=== PATIENT | male | born 1950 ===

== ENCOUNTER 2025-01-28 20:22 | Inpatient (IN) | payer MEDICARE, SELFPAY ==
[2025-01-28] VITALS (11 sets, daily range): BP systolic 102–142; BP diastolic 53–97; BMI 27.1; BMI 26.6
[2025-01-28 14:21] LABS: Hematocrit 48.7 % (39.0-52.0); Hemoglobin 16.0 g/dL (13.0-18.0); Mean Corp Hgb Conc. 32.9 g/dL (33.0-37.0); Mean Corpuscular Volume 89.9 fL (80.0-94.0); Nucleated Red Blood Cells % 0 % (-); Platelet Count 124 10^3/uL (130-400); Red Cell Dist. Width 14.1 % (11.5-14.5)
[2025-01-28 14:45] LABS: ALT (SGPT) 27 U/L (0-50); AST (SGOT) 24 U/L (17-59); Albumin 4.7 g/dl (3.5-5.0); Alkaline Phosphatase 47 U/L (38-126); Blood Urea Nitrogen 25 mg/dl (9-20); Calcium 9.8 mg/dl (8.4-10.2); Carbon Dioxide 23 mmol/L (22-30); Chloride 112 mmol/L (98-107); Glucose 96 mg/dl (70-99); Potassium 4.4 mmol/L (3.5-5.1); Sodium 141 mmol/L (135-145); Total Protein 7.5 g/dl (6.3-8.2); eGFR > 60.00
[2025-01-28 15:06] LABS: Troponin I 0.037 ng/ml
--- NOTE | 2025-01-28 16:37 | ED.GENMED ---
History of Present Illness
<Sandra Wong MD, Resident - Last Filed: 01/28/25 22:30>
General
Chief Complaint: Chest Pain
Source: patient
Exam Limitations: none
Time Seen by Provider: 01/28/25 15:39
Nursing documentation reviewed up to this point in time: agreed with
History of Present Illness
History of Present Illness:
Mr. Guille Luo is a 74-year-old male with a PMH notable for hyperlipidemia who is presenting after exertional chest pain/pressure at noon today.
This morning he developed chest pressure while walking up a hill carrying light chairs. He sat down and began sweating a lot. After 5 to 10 minutes of sitting down the chest pressure went away. He endorsed nauseous.
The discomfort was in the center of the chest and did not radiate. He first went to the urgent care and got an ECG, and they told him to go to an ED for cardiac enzymes.
He denies feeling similar symptoms before, including when he mows the lawn with a heavy lawnmower. He has also felt gassiness in his chest last night and a month ago which were not associated with exertion.
He endorses occasional calf cramps that wake him up from sleeping, especially after drinking alcohol. He denies calf pain while walking or exertion.
Past History
<Sandra Wong MD, Resident - Last Filed: 01/28/25 22:30>
Past History
ED Past Medical History: Hypercholesterolemia
Patient has exhibited threatening behavior?: No
Social History
Tobacco: Former smoker
Alcohol: Occasional
Personal:
Family History
Family History: CAD (NC in father in 40s or 50s)
Review of Systems
<Sandra Wong MD, Resident - Last Filed: 01/28/25 22:30>
Review of Systems
All Other Systems: ROS reviewed and negative except as documented in HPI and ROS
Constitutional: Reports no symptoms
Respiratory: Reports no symptoms
Cardiac: Reports chest pain, diaphoresis and other (Denies lightheadedness)
ABD/GI: Reports no symptoms
Neurological: Reports other (Denies numbness and paresthesia)
Phy Exam
<Sandra Wong MD, Resident - Last Filed: 01/28/25 22:30>
Physical Exam
Physical Exam:
Heart: Holosystolic murmur at aortic area and mitral area, regular rate and rhythm
Extremities: Pedal pulses difficult to palpate
No tenderness to palpation in the popliteal area or calves
No pedal edema
Lungs clear to auscultation bilaterally
GI: No tenderness to palpation, normal bowel sounds
Scores
<Sandra Wong MD, Resident - Last Filed: 01/28/25 22:30>
Heart Score for Chest Pain Patients
STEMI patient?: No
History: Slightly or Non-Suspicious
ECG: Nonspecific Repolarization
Age: >/= 65 years
Risk Factors: 1 or 2 Risk Factors
Troponin: >1 - <3 x Normal Limit
Heart Score for Chest Pain Patients: 5
Heart Score Risk: 20.3% MACE over next 6 weeks
Course
<Sandra Wong MD, Resident - Last Filed: 01/28/25 22:30>
Orders/Labs/Results
Orders:
Orders
01/28/25 Lunch
Cholesterol Lowering
Cholesterol Lowering: Sodium, 2 Gram
01/28/25 13:50
EKG [Electrocardiogram (*1)] Urgent
Reason for Study: Chest Pain
01/28/25 13:51
EKG- Treatment ONCE
01/28/25 13:59
Cardiac Monitoring- Treatment ONCE
O2 Therapy [RESP] Urgent
Titrate/Wean O2 to maintain O2 sat greater than (%): 90
Special Instructions: Maintain sats >/=90%
Pulse Ox/spot Check [RESP] Urgent
Quantity: 1
Special Instructions: ON ROOM AIR
01/28/25 14:15
BNP [NT-proBNP] Urgent
Complete Blood Count/With Diff Urgent
Comprehensive Metabolic Panel Urgent
Direct Bilirubin Urgent
Glycohemoglobin (HgbA1c) Urgent
LDH Urgent
Reticulocyte Count Urgent
Comment: ADD ON
Troponin I Urgent
01/28/25 17:05
CR Chest - 2 Views Urgent
Comment:
Reason For Exam: exertional chest pain; murmur
01/28/25 17:06
Troponin I Urgent
01/28/25 18:03
Aspirin Chewable [Low Strength Aspirin] 324 mg PO NOW STA
01/28/25 19:48
Heparin 4,000 units IV NOW STA
Nursing to Place Non Medication Order As Directed
Physician Order: PTT 6 hours after initial start of Heparin infusion
01/28/25 20:00
Heparin 70371 Units/250 ml 25,000 units in 250 ml IV PER PROTOCOL
Weight to be used for heparin protocol in kilograms (kg):: 95.708
Protocol:: Cardiac Tx/Acute Coronary
PTT Goal Range to be used:: PTT 73 to 111 seconds
Order type:: Initial
INITIAL Infusion Dose (UNITS/KG/hr) & then follow protocol:: 15 units/kg/hr
Infusion Dose in UNITS/hr & then follow protocol (UNITS/hr):: 1,450
INFUSION RATE in mL/hr & then follow protocol (mL/hr):: 14.5
PTT less than or equal to 64 seconds:: Increase rate by 200 units/hr (+ 2 mL/hr)
PTT 64.1 to 72.9 seconds:: Increase rate by 100 units/hr (+ 1 mL/hr)
PTT 73 to 111 seconds:: Target Range. No change in rate.
PTT 111.1 to 130.9 seconds:: Decrease rate by 100 units/hr (- 1 mL/hr)
PTT 131 to 199.9 seconds:: HOLD for 1 hr. Then decrease rate by 200 units/hr (- 2 mL/hr)
PTT greater than or equal to 200 seconds:: HOLD for 2 hrs & Notify Provider. Then decrease by 200 units/hr (-
2 mL/hr)
Lab follow-up:: Each change, PTT q6h until 2 consecutive are therapeutic. Then PTT
daily.
01/28/25 20:02
Admit/Transfer Patient As Directed
Co-Sign Provider:
Level of Care: Inpatient admission
Assign to:: IVU
Physician / Group: Hospitalist
Diagnosis: NSTEMI
Reason for Hospitalization: NSTEMI
Expected length of stay greater than two midnights?: Yes
ELOS- Estimated Length of Stay in days: 2
I certify the patient meets the requirements for IP care: Yes
PRN Pain Medication Management As Directed
May give lesser potent ordered pain med per pt: Yes
preference::
Protocol:: Medication orders for pain may be administered in a
manner that supports deferring to patient preference
when the pt is:
- Requesting an ordered lesser potent pain medication.
Least to most potent pain medications are defined
as: acetaminophen < NSAID < tramadol < opioids
(morphine, oxycodone, hydromorphone).
- Requesting a lesser dose of the same medication IF
ORDERED.
- Requesting a less intrusive route of administration
if both routes are prescribed by the provider (PO <
IV).
01/28/25 20:03
Code Status As Directed
Resuscitation Status: Full Code
01/28/25 20:10
Add On- LAB Routine
Tests Added?: LDH, direct bili, retics
Blood Parasites Routine
NERY Source: Blood/Venous
Specimen Description:
01/28/25 20:16
PTT Urgent
Comment: Obtain baseline before beginning heparin infusion if not already collected
Troponin I Stat
01/28/25 21:48
Electrocardiogram (*1) Q6H
Reason for Study: Chest Pain
Comment: at admission and Q3H for total of 3, to be done with each troponin
Troponin I Q3H
Comment: at admit & Q3H for 3 total including ED draws, obtain ECG with each level
01/28/25 21:48
Echo 2D MMode Color/Doppler Routine
Reason for Study: chest pain
CARDIOLOGY CONSULT Routine
Consulting Provider: Werner Gillespie
Was physician already notified: Yes
Reason for consult: NSTEMI
Heparin Protocol- PTT Orders As Directed
PTT per Heparin protocol: -Obtain CBC and baseline PTT - if not already collected.
-Obtain PTT 6 hours from start of infusion. Then, every 6 hours until 2 consecutive
PTT's are therapeutic. Then, PTT Daily.
-With each rate change, obtain PTT every 6 hours until 2 consecutive PTT's are
therapeutic. Then, PTT Daily.
Activity As Directed
Activity Level: Out of Bed-Early Mobility
INT (Intravenous Needle Therapy) As Directed
Comment: maintain peripheral IV access
Intake/ Output As Directed
Frequency: Per unit guidelines
Notify MD As Directed
Notify physician if: PTT is greater than or equal to 200.
Vital Signs As Directed
Frequency: q4h
Weight As Directed
Frequency: Daily
01/29/25 00:48
Troponin I Q3H
Comment: at admit & Q3H for 3 total including ED draws, obtain ECG with each level
01/29/25 03:48
Electrocardiogram (*1) Q6H
Reason for Study: Chest Pain
Comment: at admission and Q3H for total of 3, to be done with each troponin
Troponin I Q3H
Comment: at admit & Q3H for 3 total including ED draws, obtain ECG with each level
01/29/25 06:00
Cardiovascular Evaluation IN AM
Complete Blood Count/With Diff IN AM
Comprehensive Metabolic Panel IN AM
TSH Reflex To Free T4 IN AM
01/29/25 08:00
Aspirin Chewable [Low Strength Aspirin] 81 mg PO DAILY
Clopidogrel Bisulfate [Plavix] 75 mg PO DAILY
Rosuvastatin Calcium [Crestor] 5 mg PO DAILY
01/29/25 09:48
Electrocardiogram (*1) Q6H
Reason for Study: Chest Pain
Comment: at admission and Q3H for total of 3, to be done with each troponin
01/30/25 06:00
Complete Blood Count/No Diff Q2D
Comment: notify provider: Platelet count < 130,000 or decrease by 50% from baseline
02/01/25 06:00
Complete Blood Count/No Diff Q2D
Comment: notify provider: Platelet count < 130,000 or decrease by 50% from baseline
02/03/25 06:00
Complete Blood Count/No Diff Q2D
Comment: notify provider: Platelet count < 130,000 or decrease by 50% from baseline
02/05/25 06:00
Complete Blood Count/No Diff Q2D
Comment: notify provider: Platelet count < 130,000 or decrease by 50% from baseline
02/07/25 06:00
Complete Blood Count/No Diff Q2D
Comment: notify provider: Platelet count < 130,000 or decrease by 50% from baseline
02/09/25 06:00
Complete Blood Count/No Diff Q2D
Comment: notify provider: Platelet count < 130,000 or decrease by 50% from baseline
02/11/25 06:00
Complete Blood Count/No Diff Q2D
Comment: notify provider: Platelet count < 130,000 or decrease by 50% from baseline
02/13/25 06:00
Complete Blood Count/No Diff Q2D
Comment: notify provider: Platelet count < 130,000 or decrease by 50% from baseline
Abnormal Lab Results
01/28/25 01/28/25 01/28/25
14:15 17:06 20:16
MCHC 32.9 L g/dL
(33.0-37.0)
Plt Count 124 L 10^3/uL
(130-400)
MPV 12.1 H fL
(7.4-10.4)
Absolute Monos (auto) 0.9 H 10^3/uL
(0.1-0.6)
Lymphocytes % 20.4 L %
(20.5-51.1)
Monocytes % 10.7 H %
(1.7-9.3)
Chloride 112 H mmol/L
(98-107)
BUN 25 H mg/dl
(9-20)
Total Bilirubin 1.5 H mg/dl
(0.2-1.3)
Troponin I 0.037 H* ng/ml 0.065 H* D ng/ml 0.069 H* ng/ml
01/28/25 14:15
01/28/25 14:15
Vital Signs
Initial and Last Documented VS:
Initial Vital Signs
Temp Pulse Resp BP Pulse Ox
98.3 F 77 18 130/87 98
01/28/25 14:00 01/28/25 14:00 01/28/25 14:00 01/28/25 14:00 01/28/25 14:00
Last Documented Vital Signs
Temp Pulse Resp BP Pulse Ox
98.5 F 64 16 129/97 96
01/28/25 21:50 01/28/25 21:50 01/28/25 21:50 01/28/25 21:50 01/28/25 21:50
<Veto HSharifa Oconnell DO - Last Filed: 01/28/25 19:59>
Orders/Labs/Results
Orders:
Orders
01/28/25 Lunch
Cholesterol Lowering
Cholesterol Lowering: Sodium, 2 Gram
01/28/25 13:50
EKG [Electrocardiogram (*1)] Urgent
Reason for Study: Chest Pain
01/28/25 13:51
EKG- Treatment ONCE
01/28/25 13:59
Cardiac Monitoring- Treatment ONCE
O2 Therapy [RESP] Urgent
Titrate/Wean O2 to maintain O2 sat greater than (%): 90
Special Instructions: Maintain sats >/=90%
Pulse Ox/spot Check [RESP] Urgent
Quantity: 1
Special Instructions: ON ROOM AIR
01/28/25 14:15
BNP [NT-proBNP] Urgent
Complete Blood Count/With Diff Urgent
Comprehensive Metabolic Panel Urgent
Direct Bilirubin Urgent
Glycohemoglobin (HgbA1c) Urgent
LDH Urgent
Reticulocyte Count Urgent
Comment: ADD ON
Troponin I Urgent
01/28/25 17:05
CR Chest - 2 Views Urgent
Comment:
Reason For Exam: exertional chest pain; murmur
01/28/25 17:06
Troponin I Urgent
01/28/25 18:03
Aspirin Chewable [Low Strength Aspirin] 324 mg PO NOW STA
01/28/25 19:48
Heparin 4,000 units IV NOW STA
Nursing to Place Non Medication Order As Directed
Physician Order: PTT 6 hours after initial start of Heparin infusion
01/28/25 20:00
Heparin [id number] Units/250 ml 25,000 units in 250 ml IV PER PROTOCOL
Weight to be used for heparin protocol in kilograms (kg):: 95.708
Protocol:: Cardiac Tx/Acute Coronary
PTT Goal Range to be used:: PTT 73 to 111 seconds
Order type:: Initial
INITIAL Infusion Dose (UNITS/KG/hr) & then follow protocol:: 15 units/kg/hr
Infusion Dose in UNITS/hr & then follow protocol (UNITS/hr):: 1,450
INFUSION RATE in mL/hr & then follow protocol (mL/hr):: 14.5
PTT less than or equal to 64 seconds:: Increase rate by 200 units/hr (+ 2 mL/hr)
PTT 64.1 to 72.9 seconds:: Increase rate by 100 units/hr (+ 1 mL/hr)
PTT 73 to 111 seconds:: Target Range. No change in rate.
PTT 111.1 to 130.9 seconds:: Decrease rate by 100 units/hr (- 1 mL/hr)
PTT 131 to 199.9 seconds:: HOLD for 1 hr. Then decrease rate by 200 units/hr (- 2 mL/hr)
PTT greater than or equal to 200 seconds:: HOLD for 2 hrs & Notify Provider. Then decrease by 200 units/hr (-
2 mL/hr)
Lab follow-up:: Each change, PTT q6h until 2 consecutive are therapeutic. Then PTT
daily.
01/28/25 20:02
Admit/Transfer Patient As Directed
Co-Sign Provider:
Level of Care: Inpatient admission
Assign to:: IVU
Physician / Group: Hospitalist
Diagnosis: NSTEMI
Reason for Hospitalization: NSTEMI
Expected length of stay greater than two midnights?: Yes
ELOS- Estimated Length of Stay in days: 2
I certify the patient meets the requirements for IP care: Yes
PRN Pain Medication Management As Directed
May give lesser potent ordered pain med per pt: Yes
preference::
Protocol:: Medication orders for pain may be administered in a
manner that supports deferring to patient preference
when the pt is:
- Requesting an ordered lesser potent pain medication.
Least to most potent pain medications are defined
as: acetaminophen < NSAID < tramadol < opioids
(morphine, oxycodone, hydromorphone).
- Requesting a lesser dose of the same medication IF
ORDERED.
- Requesting a less intrusive route of administration
if both routes are prescribed by the provider (PO <
IV).
01/28/25 20:03
Code Status As Directed
Resuscitation Status: Full Code
01/28/25 20:10
Add On- LAB Routine
Tests Added?: LDH, direct bili, retics
Blood Parasites Routine
NERY Source: Blood/Venous
Specimen Description:
01/28/25 20:16
PTT Urgent
Comment: Obtain baseline before beginning heparin infusion if not already collected
Troponin I Stat
01/28/25 21:48
Electrocardiogram (*1) Q6H
Reason for Study: Chest Pain
Comment: at admission and Q3H for total of 3, to be done with each troponin
Troponin I Q3H
Comment: at admit & Q3H for 3 total including ED draws, obtain ECG with each level
01/28/25 21:48
Echo 2D MMode Color/Doppler Routine
Reason for Study: chest pain
CARDIOLOGY CONSULT Routine
Consulting Provider: Werner Gillespie
Was physician already notified: Yes
Reason for consult: NSTEMI
Heparin Protocol- PTT Orders As Directed
PTT per Heparin protocol: -Obtain CBC and baseline PTT - if not already collected.
-Obtain PTT 6 hours from start of infusion. Then, every 6 hours until 2 consecutive
PTT's are therapeutic. Then, PTT Daily.
-With each rate change, obtain PTT every 6 hours until 2 consecutive PTT's are
therapeutic. Then, PTT Daily.
Activity As Directed
Activity Level: Out of Bed-Early Mobility
INT (Intravenous Needle Therapy) As Directed
Comment: maintain peripheral IV access
Intake/ Output As Directed
Frequency: Per unit guidelines
Notify MD As Directed
Notify physician if: PTT is greater than or equal to 200.
Vital Signs As Directed
Frequency: q4h
Weight As Directed
Frequency: Daily
01/29/25 00:48
Troponin I Q3H
Comment: at admit & Q3H for 3 total including ED draws, obtain ECG with each level
01/29/25 03:48
Electrocardiogram (*1) Q6H
Reason for Study: Chest Pain
Comment: at admission and Q3H for total of 3, to be done with each troponin
Troponin I Q3H
Comment: at admit & Q3H for 3 total including ED draws, obtain ECG with each level
01/29/25 06:00
Cardiovascular Evaluation IN AM
Complete Blood Count/With Diff IN AM
Comprehensive Metabolic Panel IN AM
TSH Reflex To Free T4 IN AM
01/29/25 08:00
Aspirin Chewable [Low Strength Aspirin] 81 mg PO DAILY
Clopidogrel Bisulfate [Plavix] 75 mg PO DAILY
Rosuvastatin Calcium [Crestor] 5 mg PO DAILY
01/29/25 09:48
Electrocardiogram (*1) Q6H
Reason for Study: Chest Pain
Comment: at admission and Q3H for total of 3, to be done with each troponin
01/30/25 06:00
Complete Blood Count/No Diff Q2D
Comment: notify provider: Platelet count < 130,000 or decrease by 50% from baseline
02/01/25 06:00
Complete Blood Count/No Diff Q2D
Comment: notify provider: Platelet count < 130,000 or decrease by 50% from baseline
02/03/25 06:00
Complete Blood Count/No Diff Q2D
Comment: notify provider: Platelet count < 130,000 or decrease by 50% from baseline
02/05/25 06:00
Complete Blood Count/No Diff Q2D
Comment: notify provider: Platelet count < 130,000 or decrease by 50% from baseline
02/07/25 06:00
Complete Blood Count/No Diff Q2D
Comment: notify provider: Platelet count < 130,000 or decrease by 50% from baseline
02/09/25 06:00
Complete Blood Count/No Diff Q2D
Comment: notify provider: Platelet count < 130,000 or decrease by 50% from baseline
02/11/25 06:00
Complete Blood Count/No Diff Q2D
Comment: notify provider: Platelet count < 130,000 or decrease by 50% from baseline
02/13/25 06:00
Complete Blood Count/No Diff Q2D
Comment: notify provider: Platelet count < 130,000 or decrease by 50% from baseline
Abnormal Lab Results
01/28/25 01/28/25 01/28/25
14:15 17:06 20:16
MCHC 32.9 L g/dL
(33.0-37.0)
Plt Count 124 L 10^3/uL
(130-400)
MPV 12.1 H fL
(7.4-10.4)
Absolute Monos (auto) 0.9 H 10^3/uL
(0.1-0.6)
Lymphocytes % 20.4 L %
(20.5-51.1)
Monocytes % 10.7 H %
(1.7-9.3)
Chloride 112 H mmol/L
(98-107)
BUN 25 H mg/dl
(9-20)
Total Bilirubin 1.5 H mg/dl
(0.2-1.3)
Troponin I 0.037 H* ng/ml 0.065 H* D ng/ml 0.069 H* ng/ml
01/28/25 14:15
01/28/25 14:15
Vital Signs
Initial and Last Documented VS:
Initial Vital Signs
Temp Pulse Resp BP Pulse Ox
98.3 F 77 18 130/87 98
01/28/25 14:00 01/28/25 14:00 01/28/25 14:00 01/28/25 14:00 01/28/25 14:00
Last Documented Vital Signs
Temp Pulse Resp BP Pulse Ox
98.5 F 64 16 129/97 96
01/28/25 21:50 01/28/25 21:50 01/28/25 21:50 01/28/25 21:50 01/28/25 21:50
<Sandra Wong MD, Resident - Last Filed: 01/28/25 22:30>
MDM/Problems Addressed
Differential Diagnosis Includes:
Cardiac valve abnormality
Stable angina
GERD
Less likely but also considering
PE
MDM/Problems Addressed:
Chest pain started at around noon. Troponin I mildly elevated at 0.037 at 2:15 PM and increased to 0.065.
BNP 840 (nearly elevated for his age category) supports valvular disease as a cause of his chest pain.
Aspirin 325 mg
CXR pending
Cardiology consulted for when to start heparin
Chronic conditions affecting care: Other (HLD)
<Sandra Wong MD, Resident - Last Filed: 01/28/25 22:30>
*Pulse Oximetry
SaO2: 99
Oxygen Mode of Delivery: Room air
Patient hypoxic: no
*Critical Care Note
Total Time (30-74mins, 75-104mins- exclusive of procedures): Not Applicable
ED Attending Note
<Sandra Wong MD, Resident - Last Filed: 01/28/25 22:30>
-
Portions of this chart may have been created with voice recognition software.� Occasional wrong word or��sound alike� substitutions may have occurred due to the inherent limitations of voice recognition software.
<Veto Oconnell, - Last Filed: 01/28/25 19:59>
ED Attending Note
Patient seen and examined by attending physician: Yes
I performed a history and physical exam of patient and discussed management with resident, I reviewed resident's note and agree with documented findings and plan of care.: Yes
ED Attending Note:
I agree with the residents note
Patient presents after having an episode of chest pain while walking through a field and up a slight incline. Patient described it as a bubble or heaviness in his chest. It was associated with profuse diaphoresis. No shortness of breath or
nausea. No chest pain now. Pain went away after he rested after about 10 minutes. Patient is similar episode of discomfort last evening though to a much lesser degree.
General: Awake, Alert, Oriented X3. No acute distress.
Vitals: unremarkable
Head: Atraumatic
Eyes: Pupils equal, EOMI
Throat: Airway intact, no exudates
Neck: Trachea midline
Lungs: Clear and equal b/l
Heart: Regular rate, 3/6 systolic murmurs
Abd: Soft, Nontender, No pulsatile mass
Neuro: Nonfocal
Skin: Warm, dry, no rash
Extremities: pulses equal b/l, no edema
EKG: No acute ischemic changes.
Patient's first troponin is very slightly elevated.
Patient's chest discomfort sounds very concerning for angina though his murmur is quite prominent and perhaps his troponin elevation is related to strain from what seems to be aortic stenosis. Will obtain a second troponin. Obtain a chest x-ray.
Then discussed with cardiology on-call.
Discharge Plan
Departure
Patient Disposition: Admit
Date of Disposition: 01/28/25
Time of Disposition: 19:58
Presentation/result/management discussed w/ accepting MD/DO: Hospitalist
Condition: Fair
Discharge Problem:
Chest pain, Non-ST elevation (NSTEMI) myocardial infarction
Interventions
Interventions:
*Risk Screen - Suicide Last Done: 01/28/25 14:00
*General Assessment Last Done: 01/28/25 15:31
*Neglect/Abuse Screening Last Done: 01/28/25 14:00
*ED- Fall Risk Assessment Last Done: 01/28/25 15:31
*ED COVID-19 Vaccine History Last Done: 01/28/25 15:31
*Nursing Disposition Last Done: 01/28/25 21:13
ED- Cardiac Assessment Last Done: 01/28/25 15:31
[2025-01-28 17:39] LABS: Troponin I 0.065 ng/ml
[2025-01-28] MEDS: LOW STRENGTH ASPIRIN 324 MG PO (18:15)
--- NOTE | 2025-01-28 20:07 | HPS.HSE ---
Family Physician
-
Family Physician: Racheal Gomez
Chief Complaint
-
chest pain
History of Present Illness
74yo M with HLD came with episode of substernal chest pressure started while he was walking uphill associated with diaphoresis and resolved at rest. Had similar before but to less extent. No other symptoms noted. Ho Hx of cardiac problems. daily
alcohol use without abuse. Also early systolic murmur on R 2nd intercostal space - not known to the patient.
Medical History
Past Medical History
Past Medical History: Reports Other
Additional Past Medical History:
See HPI
Past Surgical History: Reports None
Social History
Tobacco: Non-smoker
Alcohol: Daily
Drug: None
Family History
Family History: Not pertinent
Allergies / Home Medications
Allergies reflects when Allergies were last updated in [facility].
Home Medications with original date entered in [facility]
Allergy/Medication List:
Allergies
Allergy/AdvReac Type Severity Reaction Status Date / Time
No Known Allergies Allergy Verified 01/28/25 18:03
Home Medications
rosuvastatin 5 mg tablet 5 mg PO DAILY 01/28/25
sildenafil 100 mg tablet 100 mg PO DAILY PRN ED 01/28/25
Review of Systems
-
History Source: Patient
A 12 point ROS was completed and negative except as noted: Yes
Physical Exam
Vital Signs
Vital Signs
Temp Pulse Resp BP Pulse Ox
98.6 F 62 20 102/53 96
01/28/25 15:31 01/28/25 19:15 01/28/25 18:04 01/28/25 19:00 01/28/25 19:15
Physical Exam
General: No Apparent Distress, Comfortable and Conversant
HEENT: NormoCephalic, Anicteric and Moist mucous membranes
Respiratory: Clear; No Wheezes, Rales or Crackles
Cardiac: Regular Rhythm
GI: Soft, Non Tender and Non Distended
Genito-urinary: Clear Urine
Musculoskeletal: No Clubbing, No Cyanosis and No Edema
Skin: Warm; No Rash or Jaundice
Neuro: Awake, Alert, Oriented and AO x 3
Psych: Calm
Laboratory Results
-
01/28/25 14:15
01/28/25 14:15
Laboratory Results
Total Bilirubin 1.5 mg/dl (0.2-1.3) H 01/28/25 14:15
AST 24 U/L (17-59) 01/28/25 14:15
ALT 27 U/L (0-50) 01/28/25 14:15
Alkaline Phosphatase 47 U/L (38-126) 01/28/25 14:15
Troponin I 0.065 ng/ml H* D 01/28/25 17:06
Data Reviewed
-
Diagnostic Radiology: Report Reviewed by me
Lab Data: Labs Reviewed by me
Impression/Plan
-
A/P:
#Chest pain
#Cardiac murmur
concern for cardiac, possible NSTEMI
serial EKG, trops,
nitro SL not ordered - patient taking Viagra, and currently pain free. morphine PRN
cardio consult
ASA, plavix statin
check HgbA1c, Lipids, TSH
Heparin drip
Echo
#Thrombocytopenia
follow CBC
#Bilirubinemia
no RUQ abd tenderness
check direct bili, LDH, retics
Blood parasite
#HLD
cont rosuvastatin, check LDL
DVt ppx heparin drip
Full code
I have spent at leats 76min admitting the patient
[2025-01-28 20:17] LABS: Reticulocyte Count 1.0 % (0.4-2.8)
[2025-01-28 20:36] LABS: APTT 28.4 Sec (23.4-35.0)
[2025-01-28 20:42] LABS: LDH 218 U/L (120-246)
[2025-01-28 20:50] LABS: Troponin I 0.069 ng/ml
[2025-01-28] MEDS: HEPARIN 4000 UNITS IV (20:59)
[2025-01-28] MEDS: HEPARIN 25000 UNITS/250 ML IV (21:01)
--- NOTE | 2025-01-28 23:50 | PTCARENOTE ---
Received pt from ED via stretcher into room 9701. Patient ambulated self in room w/out difficulty. Denies any dizziness, SOB or pain. Tele monitor applied pt in SR w/ PACs/PVCs, BBBC and 1st AV block. HR in the 60s at rest. BP stable. Skin intact.
No complaints of chest discomfort at this time. IV Heparin gtt infusing at 1450 units/hr. Patient oriented to room, aware of POC. Call reagan within reach.
[2025-01-28 23:52] LABS: Troponin I 0.049 ng/ml
[2025-01-29] VITALS (14 sets, daily range): BP systolic 85–127; BP diastolic 61–93; BMI 26.7
[2025-01-29 03:43] LABS: Hematocrit 45.2 % (39.0-52.0); Hemoglobin 14.8 g/dL (13.0-18.0); Mean Corp Hgb Conc. 32.7 g/dL (33.0-37.0); Mean Corpuscular Volume 90.2 fL (80.0-94.0); Nucleated Red Blood Cells % 0 % (-); Platelet Count 114 10^3/uL (130-400); Red Cell Dist. Width 14.1 % (11.5-14.5)
[2025-01-29 03:58] LABS: APTT 185.4 Sec (23.4-35.0)
[2025-01-29 04:44] LABS: ALT (SGPT) 25 U/L (0-50); AST (SGOT) 24 U/L (17-59); Albumin 3.9 g/dl (3.5-5.0); Alkaline Phosphatase 46 U/L (38-126); Blood Urea Nitrogen 25 mg/dl (9-20); Calcium 9.3 mg/dl (8.4-10.2); Carbon Dioxide 23 mmol/L (22-30); Chloride 113 mmol/L (98-107); Estimated Creatinine Clearance 97 ml/min; Glucose 85 mg/dl (70-99); HDL Cholesterol 54 mg/dl; LDL Cholesterol, Calculated 90 mg/dl; Potassium 4.3 mmol/L (3.5-5.1); Sodium 142 mmol/L (135-145); Total Protein 6.4 g/dl (6.3-8.2); Very Low Density Lipoprotein 14 mg/dl (0-30); eGFR > 60.00
--- NOTE | 2025-01-29 07:54 | CON.CAR ---
Addendum entered and electronically signed by Evert Blancas MD 01/29/25 13:34:
74-year-old man with little past medical history admitted yesterday with chest discomfort, detectable troponin and increasing intermittent dyspnea on exertion over the last few months
PMH: Hyperlipidemia
FH: Premature CAD
PSH/SH: See below
Meds, allergies: See below
ROS: See below
119/90, pulse 58, respirate 16, no distress, head neck exam unremarkable, lungs are clear, systolic murmur across precordium, carotid bruits, abdomen benign, extremities without clubbing cyanosis or edema
Echo: Dilated LV, severe MR, MVP, pulmonary artery systolic pressure 43, dilated atria, EF 51%, probably reduced in the setting of severe MR
ECG: Sinus rhythm, incomplete right bundle, inferior T wave changes nonspecific
Normal CBC, BUN/creatinine are 25 and 0.8, proBNP is 840, peak troponin 0.069
Impression:
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
Mildly reduced LV function
Exertional chest pain with troponin of 0.069
Hyperlipidemia
Family history of premature CAD
Sinus of Valsalva 4.3 cm
Plan:
See below as per Rosalba Jose. Reviewed in detail and agree, unless otherwise specified.
He is admitted with detectable troponin with exertional chest discomfort and scheduled for the Cash Controller to exclude an ACS and assess coronary anatomy.
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
Will proceed with cardiac catheterization as the next step.
Original Note:
Consultation
Consultation Request
Date/Time Consultation Requested: 01/28/25 at 1134
Date/Time Consultation Performed: 01/29/25 at 6190
Requesting Provider: Dr. Smart
Performing Provider: Dr. Blancas
Reason for Consultation: ACS
Medical History
-
History of Present Illness:
Patient came to [facility] ER yesterday with chest pain and was admitted with possible ACS and cardiology has been consulted. Patient reports intermittent SALCEDO over the last several months, but sometimes he can complete physical activity without any
symptoms and other times will have some SALCEDO chest pressure. He mows his lawn using a push mower weekly without any symptoms. 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
event and while walking he had pressure throughout his precordium and then when he reached his destination he was overwhelmingly fatigued and flopped down in his chair. A bystander thought he looked unwell and offered him Gatorade. Patient says
that the pain improved within 10 minutes of sitting down, but did not completely resolve and was still present close to an hour later when he and his were leaving the event. Patient went to urgent care and then was referred to the ER where his
initial troponin was 0.037 and then peaked at 0.065. Patient denies any previous cardiac testing. He was started on Crestor for hyperlipidemia about 6 months ago. His father had an [place] and at age 54.
PMH:
Hyperlipidemia
FH premature CAD
Past Medical History
Past Medical History: Other (in HPI)
Past Surgical History: Tonsilectomy
Social History
Tobacco: Other (smokes an occasional cigar)
Alcohol: Daily (glass of wine, cocktail or beer a day)
Drug: None
Personal:
Living: With Family
Family History
Family History: Early CAD (father of [place] at age 54)
Allergies / Home Medications
Allergy/AdvReac Type Severity Reaction Status Date / Time
No Known Allergies Allergy Verified 01/28/25 18:03
�Medication �Instructions �Recorded �Confirmed �Type
rosuvastatin 5 mg tablet 5 mg PO DAILY 01/28/25 01/28/25 History
sildenafil 100 mg tablet 100 mg PO DAILY PRN ED 01/28/25 01/28/25 History
Review of Systems
-
History Source: Patient and Family ( by phone)
All other systems: Negative unless noted
Physical Exam
Vital Signs
Temp Pulse Resp BP Pulse Ox
97.9 F 61 16 127/80 99
01/29/25 03:02 01/29/25 05:00 01/29/25 03:02 01/29/25 03:02 01/29/25 03:02
GEN: NAD. AAOx3
HEENT: EOMI, MMM
LUNGS: RA. CTA B/L, no wheeze
CV: SR on tele. Reg, S1/S2, 2/6 syst LSB
ABD: soft, BS+, NT, ND
EXT: No clubbing, cyanosis, lesions or edema B/L
NEURO: Gross non-focal
SKIN: No rash
Lab Results
01/29/25 03:12
01/29/25 03:11
Troponin I Cancelled 01/29/25 03:48
[id number] Pept 840 pg/ml 01/28/25 14:15
Impression / Plan
-
PCP: Dr. Racheal Gomez at [facility]
Card: None
Impression:
Admission with chest pain and elevated Torponin 01/28/25
Elevated Troponin concerning for NSTEMI
Hyperlipidemia
FH premature CAD
Murmur of MR
Thrombocytopenia
Echo 01/29/25: Study pending
Plan:
-Patient came to [facility] ER yesterday with chest pain and was admitted with possible ACS and cardiology has been consulted. Patient reports intermittent SALCEDO over the last several months, but sometimes he can complete physical activity without any
symptoms and other times will have some SALCEDO chest pressure. He mows his lawn using a push mower weekly without any symptoms. 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
event and while walking he had pressure throughout his precordium and then when he reached his destination he was overwhelmingly fatigued and flopped down in his chair. A bystander thought he looked unwell and offered him Gatorade. Patient says
that the pain improved within 10 minutes of sitting down, but did not completely resolve and was still present close to an hour later when he and his were leaving the event. Patient went to urgent care and then was referred to the ER where his
initial troponin was 0.037 and then peaked at 0.065. Patient denies any previous cardiac testing. He was started on Crestor for hyperlipidemia about 6 months ago. His father had an [place] and at age 54.
-ECG reviewed by me is SR without acute ST changes
-Initial troponin 0.037 and then peaked at 0.065 and now trending down. No recurrence of chest pain on admission.
-Heparin gtt started in the ER remains running, would continue
-Aspirin loading dose given in the ER last evening and now ordered 81 mg daily.
-Patient was started on Plavix 75 mg daily by hospitalist attending at time of admission
-Patient with suspected NSTEMI. Reviewed case with patient and and recommended cardiac catheterization, they are agreeable. We discussed risk versus benefit.
-LDL 90 patient was started on Crestor 5 mg daily by PCP 6 months ago. Pending results of cath we will increase dose.
-Check echo, call placed by me to echo department to expedite study. Patient with murmur.
-Follow Plt count on Heparin gtt
[2025-01-29] MEDS: LOW STRENGTH ASPIRIN 81 MG PO (08:29)
[2025-01-29] MEDS: CRESTOR 5 MG PO (08:29)
[2025-01-29] MEDS: PLAVIX 75 MG PO (08:29)
[2025-01-29 10:34] LABS: Glycohemoglobin (HgbA1c) 5.9 % (4.0-5.6)
[2025-01-29 11:36] LABS: APTT 154.1 Sec (23.4-35.0)
--- NOTE | 2025-01-29 12:23 | CM ---
spoke to pt in room, he is prev indep, lives with his in a 2 story home with 1 step to enter. he denies any dc planning needs or dme's. plan is for dc to home when medically stable.
--- NOTE | 2025-01-29 15:24 | W.PN.UPDATE ---
Update Note
Progress Note Update
Updated patient and in room with results of echo, EF 51% with borderline global hypokinesis and evidence of severe eccentric MR with mild bileaflet prolapse. Plan is still to proceed with cardiac cath.
--- NOTE | 2025-01-29 16:18 | W.PN.HOSP.TC ---
Today's Communication/Plan
-
Heart Catherization pending
Assessment / Plan
Assessment / Plan
#Chest pain
#Cardiac murmur
concern for cardiac, possible NSTEMI
serial EKG: SINUS BRADYCARDIA WITH 1ST DEGREE A-V BLOCK
INCOMPLETE RIGHT BUNDLE BRANCH BLOCK
BORDERLINE ECG
WHEN COMPARED WITH ECG OF 28-JAN-2025 23:10,
NO SIGNIFICANT CHANGE WAS FOUND, trops peaked at 0.069,
nitro SL not ordered - patient taking Viagra, and currently pain free. morphine PRN
cardio consult, for heart cath today
ASA, plavix statin
check HgbA1c 5.9%, Lipids - LDL 90 on Crestor past 7 mos, TSH 3.43
Heparin drip started at time of admission
Echo: 1. Dilated left ventricle with mild concentric left ventricular hypertrophy
and mildly reduced systolic function, borderline global hypokinesis, EF 51%
2. Thickened mitral leaflets with mild bileaflet prolapse, severe eccentric
mitral regurgitation and severely dilated left atrium
3. Aortic valve with trace aortic regurgitation
4. Top normal right ventricular size with preserved systolic function, mild
tricuspid regurgitation, pulmonary artery systolic pressure 46 mmHg
5. The ascending aorta is dilated at the sinuses of Valsalva, 4.3 cm
#Thrombocytopenia
follow CBC, plt 114k
#Bilirubinemia
no RUQ abd tenderness
check direct bili, LDH, retics 1.0
Blood parasite, Bili 1.5-->1.2
#HLD
cont rosuvastatin, check LDL
DVt ppx heparin drip
Full code
Anticipated Discharge: 24 - 48 hours
Subjective/Interval History
-
Date of Service: January 29, 2025
Awake, alert, currently no chest pain
Objective Data
-
Labs:
Laboratory Results
01/29/25 01/29/25 01/29/25
03:11 11:15 18:45
APTT 154.1 H* Pending
Sodium 142
Potassium 4.3
Chloride 113 H
Carbon Dioxide 23
BUN 25 H
Creatinine 0.8
Glucose 85
Calcium 9.3
Total Bilirubin 1.2
AST 24
ALT 25
Alkaline Phosphatase 46
Vital Signs:
Vital Signs
Temp Pulse Resp BP Pulse Ox
97.8 F 67 18 119/90 97
01/29/25 15:12 01/29/25 15:12 01/29/25 15:12 01/29/25 07:57 01/29/25 15:12
I&O
01/28/25 01/29/25 01/30/25
06:59 06:59 06:59
Intake Total 232 / 232
Balance 232 / 232
Review of Systems
-
History Source: Patient and Family ( at bedside)
Constitutional: Denies Fever
EENT: Reports No Symptoms Reported
Respiratory: Reports No Symptoms
Cardiac: Reports Chest Pain (none currently)
Abdomen/GI: Reports No Symptoms
Genitourinary: Reports No Symptoms
Physical Exam
-
General: Well Developed, Well Nourished and No Apparent Distress
HEENT: Normocephalic, Atraumatic and Moist Mucous Membranes
Respiratory: Clear to Auscultation; Negative Wheezes, Rales or Rhonchi
Cardiac: Regular Rhythm, S1/S2 and Murmur (3/6MR, 1/6 diastolic decrescendo m at RUSB)
Musculoskeletal: No Clubbing, No Cyanosis and No Edema
Neuro: Awake, Alert and Oriented
[2025-01-29] MEDS: LOPRESSOR 25 MG PO (17:01)
--- NOTE | 2025-01-29 18:25 | ITS.CL.CATH ---
[employer] - Catheterization
Cardiac Catheterization
Procedure Report:
RIGHT AND LEFT HEART STUDY
Date of Procedure: January 29, 2025
Referring: Dr. Evert Blancas
PROCEDURES:
1. Right heart catheterization
2. Left heart catheterization with coronary and single-plane left ventriculography
INDICATION: This is a 74-year-old gentleman with no prior cardiac history who presented for evaluation of new onset chest discomfort and low-level positive troponin and history suggestive of unstable angina/small non-ST segment elevation myocardial
infarction. He is now referred for coronary angiography. As part of his initial workup an echocardiogram was performed and he was noted to have severe mitral regurgitation and bileaflet mitral valve prolapse
ACCESS: Right radial artery, 6 Slovenian sheath in right brachial vein, 6 Slovenian sheath
HEMODYNAMICS : mmHg
RA (m) : 6
RV (s/d) : 30/6, 9
PA (s/d, m) : 31/13, 23
PCWP (m) : 15 with V waves to 29 mmHg
AO (s/d, m) : 114/74, 91
LV (s/d) : 112/9
LVEDP : 17
Estimated Amy Cardiac Output: 4.1 L / min and Cardiac Index: 1.9 L/ min / m-2
Systemic vascular resistance: 20.7 Wood units or 1659 [id number]-fm(-5)
Pulmonary vascular resistance: 1.9 Wood units or 156 [id number]-wpj-qg(-5)
CORONARY FINDINGS :
Dominance: Right
LEFT MAIN: Normal
LEFT ANTERIOR DESCENDING: The LAD arises normally from the left main running in the anterior interventricular groove. The first diagonal branch arises from the proximal third of the LAD and just beyond the first diagonal branch the LAD has an
ulcerated 95% stenosis. The remainder of the vessel has luminal irregularities but no focal high-grade obstructive stenosis.
CIRCUMFLEX: The circumflex is a medium caliber nondominant vessel supplying 2 small obtuse marginal branches
RIGHT CORONARY ARTERY: The right coronary artery is a large-caliber dominant vessel that is widely patent. Only minor irregularities are noted. Both the PDA and posterolateral branches are large
VENTRICULOGRAPHY: The left ventricle is dilated and globally hypokinetic with a visually estimated ejection fraction of 40%. There is 4+ mitral regurgitation
SEDATION: 58 minutes of procedural sedation was utilized. An independent medical geneticist was present to assist with and help manage the patient's level of consciousness and physiologic status
RADIATION SUMMARY: Fluoro Time (min): 7.1, Dose (mGy): 340, DAP (Gy.cm2) : 25.4
CONCLUSIONS
1. Ulcerated high-grade mid LAD stenosis
2. Dilated globally hypokinetic left ventricle with an estimated ejection fraction of 40% and 4+ mitral regurgitation
RECOMMENDATIONS
1. Will consult CT surgery
2. Plan KATARINA to evaluate mitral valve anatomy/pathology
Copy to: Dr. Evert Blancas
--- NOTE | 2025-01-29 19:10 | PTCARENOTE ---
~6900-1392: Handoff received from nightshift RN. Pt Aox4, NSR 1st degree AVB BBB 60s on tele, SBP 110s-120s, RA satting 98%. Pt denies pain at this time. Heparin gtt infusing @ 1250 units/hr. + pulses noted, no edema. Pt NPO at this time for CCL
later today. ECHO completed. Pt independent in room at this time. All needs met, call reagan within reach.
~4980-7586: PTT obtained and sent to lab.
~1405-3053: PTT critical lab value, per protocol, Heparin gtt held for 1 hour.
~8304-7948: Heparin restarted and titrated per protocol. at bedside. Patient remains NPO for [facility]. All needs met at this time, call reagan within reach.
~1520: Report given to CCL. Patient taken by CCL team for procedure.
~1700: Report received from CCL. Patient brought back via bed. Aox4, NSR 1st degree AVB with frequent PVC and PACs noted, cardiology aware, metoprolol ordered while patient was in CCL given at this time. Post-op site instructions/ducation provided.
TR band in place, R radial site CDI with no oozing or hematoma noted at this time. Patient denies pain at this time. All needs met, call reagan within reach.
~1730: Air removed from TR band. CXR completed.
~1800: Air removed from TR band.
~1830: Air removed from TR band.
~1900: TR band removed, site dressed, CDI at this time with no oozing or hematoma noted. Handoff report given to nightshift RN.
[2025-01-29 20:35] LABS: Hepatitis C Antibody Negative (Negative)
[2025-01-29] MEDS: HEPARIN 25000 UNITS/250 ML IV (22:04)
--- NOTE | 2025-01-29 22:17 | PTCARENOTE ---
TR band removed at 19:00 by day shift RN w/out any complications. Right brachial site C/D/I. Pt educated on activity restrictions, and verbalized understanding. Denies any pain or SOB at this time. IV Heparin gtt resumed at 22:05. Jarrett Mcleod
PA instructed RN to resume heparin gtt at previous rate of 1050 units/hr. Tele monitor shows Sinus nola w/ 1st AV block, BBBC, and occasional PACs/PVCs. HR in the 40-60's at rest. Denies any dizziness, and ambulates self in room. Patient educated
to remain NPO at midnight for planned echo/sarah beth on 01/30. Call reagan within reach.
[2025-01-30 04:00] VITALS: BP 113/79
[2025-01-30 04:26] VITALS: BMI 26.8
[2025-01-30 04:30] LABS: Hematocrit 44.5 % (39.0-52.0); Hemoglobin 14.9 g/dL (13.0-18.0); Mean Corp Hgb Conc. 33.5 g/dL (33.0-37.0); Mean Corpuscular Volume 87.6 fL (80.0-94.0); Platelet Count 104 10^3/uL (130-400); Red Cell Dist. Width 14.2 % (11.5-14.5)
[2025-01-30 04:40] LABS: INR 1.10; PT 14.7 Sec (11.4-14.6)
[2025-01-30 04:42] LABS: APTT 73.8 Sec (23.4-35.0)
[2025-01-30 05:08] LABS: ALT (SGPT) 24 U/L (0-50); AST (SGOT) 23 U/L (17-59); Albumin 4.0 g/dl (3.5-5.0); Alkaline Phosphatase 48 U/L (38-126); Blood Urea Nitrogen 23 mg/dl (9-20); Calcium 8.7 mg/dl (8.4-10.2); Carbon Dioxide 19 mmol/L (22-30); Chloride 111 mmol/L (98-107); Estimated Creatinine Clearance 111 ml/min; Glucose 96 mg/dl (70-99); Potassium 4.0 mmol/L (3.5-5.1); Sodium 138 mmol/L (135-145); Total Protein 6.4 g/dl (6.3-8.2); eGFR > 60.00
--- NOTE | 2025-01-30 05:22 | PTCARENOTE ---
Went into pts room at approx 03:55 to obtain morning vitals/blood work. Pt reports having chest discomfort 30 mins prior to this RN coming into room. Pt neglected to inform staff during the episode. Pt unable to described discomfort. He kept stating
'I don't know. It felt like a gas bubble. Like I needed to burp'. Pt also noted he felt slightly nauseous. Per pt nausea has resolved, and currently has no chest discomfort. Bp stable. EKG obtained per order. Jarrett PATEL made aware, no new
orders at this time.
Pt refused ABG blood work this morning. Patient 'tired of being stuck'. PA aware. Call reagan in reach.
--- NOTE | 2025-01-30 07:58 | W.PN.HOSP.TC ---
Today's Communication/Plan
-
Heme consult regarding platelets
CT surgery consult
CAT scan of chest ordered
Assessment / Plan
Assessment / Plan
#Chest pain on presentation
#4+ mitral regurgitation
#Ulcerated high-grade mid LAD stenosis
Dr. Posadas of CT surgery has been consulted
01/29 serial EKG: SINUS BRADYCARDIA WITH 1ST DEGREE A-V BLOCK
INCOMPLETE RIGHT BUNDLE BRANCH BLOCK
BORDERLINE ECG
WHEN COMPARED WITH ECG OF 28-JAN-2025 23:10,
NO SIGNIFICANT CHANGE WAS FOUND, trops peaked at 0.069,
01/30 EKG no significant change was found
nitro SL not ordered on admission - patient taking Viagra, and currently pain free. morphine PRN
cardio consult appreciated
underwent heart cath 01/29: 1. Ulcerated high-grade mid LAD stenosis
2. Dilated globally hypokinetic left ventricle with an estimated ejection fraction of 40% and 4+ mitral regurgitation
RECOMMENDATIONS
1. Will consult CT surgery
2. Plan KATARINA to evaluate mitral valve anatomy/pathology
ASA, plavix statin
HgbA1c 5.9%, Lipids - LDL 90 on Crestor 5mg past 7 mos, TSH 3.43
Heparin drip started at time of admission, held for heart cath and resumed last evening
Echo: 1. Dilated left ventricle with mild concentric left ventricular hypertrophy
and mildly reduced systolic function, borderline global hypokinesis, EF 51%
2. Thickened mitral leaflets with mild bileaflet prolapse, severe eccentric
mitral regurgitation and severely dilated left atrium
3. Aortic valve with trace aortic regurgitation
4. Top normal right ventricular size with preserved systolic function, mild
tricuspid regurgitation, pulmonary artery systolic pressure 46 mmHg
5. The ascending aorta is dilated at the sinuses of Valsalva, 4.3 cm
#Thrombocytopenia
follow CBC, plt 124-->114-->104k
call placed and discussed with Gris Blancas, preference for Heme consult, will place
#Bilirubinemia-mild
no RUQ abd tenderness
direct bili 0.4 LDH 218, retics 1.0
Bili 1.5-->1.2
#HLD
cont rosuvastatin, LDL 90
will increase dose from 5 mg daily to 10 mg
DVt ppx heparin drip
Full code
Anticipated Discharge: > 48 hours
Subjective/Interval History
-
Date of Service: January 30, 2025
Had minor chest pressure episode during night, lasted about 2 minutes, then resolved. Had minimal nausea associated with it.
Objective Data
-
Labs:
Laboratory Results
01/29/25 01/30/25 01/30/25
23:00 04:17 04:17
WBC 7.1
Hgb 14.9
Hct 44.5
Plt Count 104 L
PT 14.7 H
INR 1.10
APTT Cancelled Cancelled 73.8 H
HCO3
Sodium 138
Potassium 4.0
Chloride 111 H
Carbon Dioxide 19 L
BUN 23 H
Creatinine 0.7
Glucose 96
Calcium 8.7
Total Bilirubin 1.4 H
AST 23
ALT 24
Alkaline Phosphatase 48
01/30/25 01/30/25 01/30/25
06:00 10:20 11:00
WBC
Hgb
Hct
Plt Count
PT
INR
APTT Pending
HCO3 Cancelled Pending
Sodium
Potassium
Chloride
Carbon Dioxide
BUN
Creatinine
Glucose
Calcium
Total Bilirubin
AST
ALT
Alkaline Phosphatase
Vital Signs:
Vital Signs
Temp Pulse Resp BP Pulse Ox
97.9 F 51 18 113/79 99
01/30/25 04:01 01/30/25 06:00 01/30/25 04:01 01/30/25 04:00 01/30/25 04:01
I&O
01/29/25 01/30/25 01/31/25
06:59 06:59 06:59
Intake Total 232 / 232 345 / 345
Output Total / 2
Balance 232 / 232 343 / 343
Review of Systems
-
History Source: Patient and Family ( at bedside)
Constitutional: Denies Fever
EENT: Reports No Symptoms Reported
Respiratory: Reports No Symptoms
Cardiac: Reports Chest Pain (none currently)
Abdomen/GI: Reports No Symptoms
Genitourinary: Reports No Symptoms
Physical Exam
-
General: Well Developed, Well Nourished and No Apparent Distress
HEENT: Normocephalic, Atraumatic and Moist Mucous Membranes
Respiratory: Clear to Auscultation; Negative Wheezes, Rales or Rhonchi
Cardiac: Regular Rhythm, S1/S2 and Murmur (3/6MR, 1/6 diastolic decrescendo m at RUSB)
Musculoskeletal: No Clubbing, No Cyanosis and No Edema
Neuro: Awake, Alert and Oriented
[2025-01-30 07:59] VITALS: BP 111/76
[2025-01-30] MEDS: CRESTOR 5 MG PO (08:06)
[2025-01-30] MEDS: LOW STRENGTH ASPIRIN 81 MG PO (08:07)
--- NOTE | 2025-01-30 08:27 | CONSULT.CT ---
Consultation
-
Date/Time Consultation Requested: 01/29/25 1715
Requesting Provider: Dr. Hooks
Performing Provider: RANULFO Ramírez
Reason for Consultation: Mitral Regurgitation & Coronary Artery Disease
Patient History
Physicians
Family Physician: Dr. Racheal Gomez at [facility]
Outpatient Manager Spa: None
Inpatient Manager Spa: [facility]
History of Present Illness
Mr. Guille Luo is a 74-year-old male with a PMHx of HLD who presented to [facility] ED on 01/28/25 with complaints of dyspnea on exertion with diaphoresis. He shared that his dyspnea began while ascending a hill outside for a concert. He reporting
shortness of breath resolved after 10 minutes of rest when at the top of the hill. He further went into a shaded area to sit in which he then he began to experience diaphoresis and chest discomfort/tightness. He reported that he has endured previous
dyspnea while ascending the steps at home over the last few weeks which he attributed to aging. Upon ED presentation, EKG showed small, non-ST segment elevation with low-positive troponin (presented at 0.037 with peak at 0.065). Mr. Luo was
admitted for ACS in which Cardiology was consulted. TTE showed EF 51% with dilated LA & LV, severe MR, MVP, PASP 46. He was referred for R/LHC which showed high-grade mid LAD stenosis with dilated, global hypokinetic LV an estimated EF of 40% with
severe MR; CO/CI 4.1/1.9, PASP 31/13, RA 6, PCWP 15 with v-waves to 29, LVEDP 17. Cardiothoracic surgery was consulted for consideration of CABG and MVR.
Past Medical History
Past Medical History: SALCEDO and Hypercholesterolemia
Past Surgical History
Past Surgical History: None
Dental History
Last dental appointment November of 2024, follows routinely. Tooth extraction x 1.
Family History
Mother: at Age (92)
Father: at Age (54) and Cause of (Heart Attack)
Family Medical History: CAD
Social History
Alcohol: Daily (1-2 beers daily, 1-2 liquid 3 days/week)
Drug: None
Tobacco: Former Smoker
Personal:
Living: With Spouse
Allergies
Allergy/AdvReac Type Severity Reaction Status Date / Time
No Known Allergies Allergy Verified 01/28/25 18:03
Home Medications
�Medication �Instructions �Recorded �Confirmed �Type
rosuvastatin 5 mg tablet 5 mg PO DAILY High Cholesterol 01/28/25 01/28/25 History
sildenafil 100 mg tablet 100 mg PO DAILY PRN ED 01/28/25 01/28/25 History
Review of Systems
-
History Source: Patient
General: Reports No Symptoms
HEENT: Reports No Symptoms
Respiratory: Reports SALCEDO and Other (chest tightness)
Cardiac: Reports No Symptoms
Abdomen/GI: Reports No Symptoms
: Reports No Symptoms
Musculoskeletal: Reports No Symptoms
Skin: Reports No Symptoms
Neurological: Reports No Symptoms
Vascular: Reports No Symptoms
Physical Exam
Vital Signs
Temp 97.2 F 01/30/25 08:01
Temp route: Oral 01/30/25 08:01
Pulse 51 01/30/25 06:00
Rhythm: Sinus bradycardia 01/29/25 20:00
With- Bundle Branch Block Confi, First Degree Heart Block, PAC's, PVC's Monomorphic 01/29/25 20:00
Resp Rate 18 01/30/25 08:01
Blood pressure LEFT upper extremity: 98/81 01/29/25 23:28
Blood pressure RIGHT upper extremity: 98/65 01/29/25 23:28
Blood pressure 113/79 01/30/25 04:00
Blood pressure extremity used: Left upper arm 01/30/25 08:01
Position: Lying 01/30/25 08:01
MAP (cuff-Beatriz Monitor) 90 01/30/25 04:00
MAP 103 01/28/25 18:04
SaO2 98 01/30/25 08:01
Oxygen Mode of Delivery Room air 01/30/25 08:01
Can the patient verbally communicate their pain? Yes 01/29/25 20:00
Pain scale ratin 01/28/25 15:31
Actual Weight 94.5 kg 01/30/25 04:26
Body Mass Index (BMI) 26.8 01/30/25 04:26
Labs
01/30/25 04:17
01/30/25 04:17
PT 14.7 Sec (11.4-14.6) H 01/30/25 04:17
APTT 73.8 Sec (23.4-35.0) H 01/30/25 04:17
APTT Cancelled 01/30/25 04:17
Hemoglobin A1c Cancelled 01/28/25 21:48
Troponin I Cancelled 01/29/25 03:48
Efn-Z-Ikgggqfrjyi Pept 840 pg/ml 01/28/25 14:15
Arterial Blood Gases
pH Cancelled 01/30/25 06:00
pCO2 Cancelled 01/30/25 06:00
pO2 Cancelled 01/30/25 06:00
HCO3 Cancelled 01/30/25 06:00
Base Excess Cancelled 01/30/25 06:00
ABG O2 Sat (Measured) Cancelled 01/30/25 06:00
O2 Delivery Level Cancelled 01/30/25 06:00
Exam
General: Well Developed, Well Nourished and No Apparent Distress
HEENT: Normocephalic, Atraumatic, PERRLA and EOMI
Respiratory: Clear
Cardiac: S1/S2 and Regular Rhythm
GI: Soft, Non Tender and Non Distended
Skin: Warm and Dry
Neuro: Awake, Alert, Oriented and AO x 3
Extremities: Pulses (+2 DP/PT pulses B/L)
Lymph: No Lymphadenopathy
Psych: Calm
Assessment / Plan
-
#CAD with severe MR with bileaflet MVP
- TTE showed EF 51% with dilated LA & LV, severe MR, MVP, PASP 46.
- R/LHC (01/29/25) showing high-grade mid LAD stenosis with dilated, global hypokinetic LV an estimated EF of 40% with severe MR
- Planning for KATARINA per Cardiology.
- CTS consulted for consideration of CABG and MVR.
- Last dose of Plavix 75 mg on 01/29/25, first and only dose - placed on hold.
- Plan to check TEG 01/30/25.
- Pre-operative testing ordered including panelipse, cerebrovascular US, CT chest, CXR, EKG, labwork, & T&S.
- Anesthesia consulted.
- STS risk stratification score will be calculated after preoperative testing is completed.
- Continue management per primary team.
- Patient's case will be discussed with the Attending Physician. Further details regarding surgical timing will be determined after Attending's full evaluation.
Data Reviewed
-
EKG: Report Reviewed by me
Investigator Utility Bill Complaints: Report Reviewed by me
Echo: Report Reviewed by me
--- NOTE | 2025-01-30 08:51 | W.PN.CARDCBS ---
Addendum entered and electronically signed by Paloma Sanchez DO 01/31/25 03:41:
I saw and examined the patient.
The Ore Smelter's note was reviewed and I agree with the note.
Comment: Late entry. Patient was seen and examined at the time of trans esophageal echocardiogram as part of CT surgery evaluation prior to planned CABG/MVR. Patient has no complaints of chest pain or shortness of breath. No contraindications to
proceeding and consents were signed.
GEN: No distress, awake, Ox3
HEENT: supple, anicteric, mmm
LUNGS: CTA, no wheezes/rales
CV: Reg, S1/S2, 3 out of 6 systolic murmur
ABD: soft, BS+, NT/ND
EXT: No edema
Plan:
NSTEMI Status post Right and left heart cath 01/29/2025: Ulcerated high-grade LAD stenosis 95%, dilated global hypokinetic LVEF 40%, and 4+ MR.
- KATARINA with mildly dilated left ventricle and low normal LV systolic function with severe eccentric mitral regurgitation associated with bileaflet mitral valve prolapse. The P2 and to a lesser degree P3 scallop is significantly prolapsing with torn
cord and flail segment. There is also a slight prolapse of the A2 segment. No significant aortic or tricuspid pathology.
-Findings discussed with CT surgery.
-Plan for CABG and mitral valve repair possibly 02/01/2025
-Preoperative evaluation ongoing as per CC surgery.
-Hematology has been consulted to evaluate thrombocytopenia. Heparin held.
-cont ASA; plavix on hold, last dose and only dose 01/29/2025
- He was started on Crestor for hyperlipidemia about 6 months ago. LDL 90, uptitrate Crestor to 10 mg daily
Addendum entered and electronically signed by Evert Blancas MD 01/30/25 11:34:
Patient with drop in platelets. Hematology has evaluated. We have agreed to hold heparin in the absence of recurrent symptoms until HIT antibody back. Patient will need argatroban if recurrent symptoms. Pending HIT panel. No Plavix given CT
surgical eval, patient had received 1 dose of Plavix yesterday. Continue aspirin alone at this time.
Original Note:
Today's Communication / Plan
-
KATARINA today
CT surgery evaluation
Impression / Plan
-
PCP: Dr. Racheal Gomez at [facility]
Card: None, first seen this admit by Dr Blancas
Impression:
Admission with chest pain and elevated Troponin 01/28/25
Elevated Troponin concerning for NSTEMI
CAD w/95% LAD stenosis cath 01/29/2025
severe MR-new diagnosis
Hyperlipidemia
FH premature CAD
Murmur of MR
Thrombocytopenia
Echo 01/29/25: Dilated LV, EF 51%, severe eccentric MR and severely dilated LA, mild bileaflet mitral valve prolapse, trace AI, top normal RV size, preserved RV systolic function
Right and left heart cath 01/29/2025: RA 6, PA 31/13, PCWP 15, V waves to 29, CO/CI 4.1/1.9. LAD: Ulcerated high-grade LAD stenosis 95%, circumflex: Medium caliber nondominant vessel supplying 2 small OM branches. RCA large caliber widely patent
with minor irregularities. PDA and posterolateral branch is large. Dilated global hypokinetic LVEF 40%, and 4+ MR.
Plan:
-Patient came to [facility] ER 01/28/2025 with chest pain and SALCEDO and was admitted with possible ACS. Initial troponin was 0.037 and then peaked at 0.065.
- Right and left heart cath 01/29/2025: Ulcerated high-grade LAD stenosis 95%, dilated global hypokinetic LVEF 40%, and 4+ MR.
- CT surgery consult for possible CABG/MVR
-On heparin drip
- KATARINA to evaluate mitral valve- [facility] today 01/30/2025
-cont ASA,
- plavix on hold, last dose and only dose 01/29/2025
- He was started on Crestor for hyperlipidemia about 6 months ago. LDL 90, uptitrate Crestor to 10 mg daily
-telemetry:NSR, first degree AVB, pvcs, bigeminy, 3 beat NSVT
-heme consult for thrombocytopenia, platelets trending down 124-114-104
Progress Note - Telephone Clerk
Subjective
Date of Service: January 30, 2025
Left heart cath 01/29/2025 with 95% LAD stenosis and 4+ MR
KATARINA today to evaluate MR
Had slight chest pressure when walking to bathroom with associated nausea overnight, lasted 2 minutes
Objective
Labs:
01/30/25 04:17
01/30/25 04:17
Labs
Hgb 14.9 g/dL (13.0-18.0) 01/30/25 04:17
Hct 44.5 % (39.0-52.0) 01/30/25 04:17
Plt Count 104 10^3/uL (130-400) L 01/30/25 04:17
PT 14.7 Sec (11.4-14.6) H 01/30/25 04:17
INR 1.10 01/30/25 04:17
APTT 73.8 Sec (23.4-35.0) H 01/30/25 04:17
APTT Cancelled 01/30/25 04:17
Sodium 138 mmol/L (135-145) 01/30/25 04:17
Potassium 4.0 mmol/L (3.5-5.1) 01/30/25 04:17
BUN 23 mg/dl (9-20) H 01/30/25 04:17
Creatinine 0.7 mg/dL (0.7-1.3) 01/30/25 04:17
Glucose 96 mg/dl (70-99) 01/30/25 04:17
Troponins
01/28/25 01/28/25 01/28/25
14:15 17:06 20:16
Troponin I 0.037 H* 0.065 H* D 0.069 H*
01/28/25 01/29/25 01/29/25
23:16 00:48 03:48
Troponin I 0.049 H* D Cancelled Cancelled
Vital Signs and I&O:
Vital Signs
Temp Pulse Resp BP Pulse Ox
97.2 F 60 18 111/76 98
01/30/25 08:01 01/30/25 08:00 01/30/25 08:01 01/30/25 07:59 01/30/25 08:01
Vital Signs
Temp Pulse Resp BP Pulse Ox
97.2 F 60 18 111/76 98
01/30/25 08:01 01/30/25 08:00 01/30/25 08:01 01/30/25 07:59 01/30/25 08:01
Intake & Output
01/28/25 01/29/25 01/30/25 01/31/25
06:59 06:59 06:59 06:59
Intake Total 232 / 232 345 / 345
Output Total 2 / 2
Balance 232 / 232 343 / 343
Physical Exam
Physical Exam
GEN: No distress, awake, Ox3
HEENT: supple, anicteric, mmm
LUNGS: CTA, no wheezes/rales
CV: Reg, S1/S2, 3 out of 6 systolic murmur
ABD: soft, BS+, NT/ND
EXT: No edema
NEURO: Gross non-focal
SKIN: No rash
--- NOTE | 2025-01-30 10:02 | PTCARENOTE ---
Patient sent for CT of the chest and ultrasound. Remains NPO for KATARINA/echo, IV heparin infusing at 1050 units/hr.
--- NOTE | 2025-01-30 10:19 | CON.ONC ---
Documented by User: Laurel Andrea DO, Resident 01/30/25 12:38
Consultation
-
Date Consultation Requested: 01/30/25
Date Consultation Performed: 01/30/25
Performing Provider: Ric Aviles
Impression
Impression
Chest Pain
- Elevated Troponin concerning for NSTEMI
- CAD w ith 95% LAD stenosis cath 01/29/2025
- severe MR
Thrombocytopenia
- platelets trending down 124-114-104
- patient started on heparin IV 01/28/2025, possible etiology
Plan
Plan
Hold heparin in the absence of recurrent cardiac symptoms until HIT antibody results
HIT panel pending
Patient will need argatroban if recurrent symptoms
Patient History
History of Present Illness
74 year old male with PMH of HLD presented to the ED with episode of substernal chest pressure started while he was walking uphill associated with diaphoresis and resolved at rest. Patient had similar epsidoe before but to less extent. No other
symptoms noted. No history of cardiac problems.
In the ED, ECHO revealed dilated LV, EF 51%, severe eccentric MR and severely dilated LA. Right and Left Heart Cath showed high-grade LAD stenosis 95%, dilated global hypokinetic LVEF 40%, and 4+ MR. Initial troponin was 0.037 and then peaked at
0.065. CT surgery consulted for possible CABG/MVR. Patient was started on heparin drip. KATARINA scheduled for today to evalue MR.
Since admission patients platelets are trending down 124 -> 114 -> 104 today. Hematology consulted to assess thrombocytopenia.
Today patient was seen sitting in the chair with in the room. Patient is feeling okay today. Patient denies all ROS aside from a mild headache that he associates with strain from sleeping in the hospital bed. Patient is not feeling any chest
pain or SOB at the moment, but has had some intermittent chest 'heaviness' since arriving, resolving quickly.
Past-Medical/Surgical History
Past Medical History:
HLD
Past Surgical History:
None
Patient Medication
�Medication �Instructions �Recorded �Confirmed �Last Taken �Type
rosuvastatin 5 mg tablet 5 mg PO DAILY High Cholesterol 01/28/25 01/28/25 01/28/25 History
sildenafil 100 mg tablet 100 mg PO DAILY PRN ED 01/28/25 01/28/25 1 Week Ago History
~01/21/25
Active Medications
Generic Name Dose Route Start Last Admin
Trade Name Freq PRN Reason Stop Dose Admin
Acetaminophen 650 mg 01/29/25 16:36
Acetaminophen 325 Mg Tablet PO 02/26/25 16:35
Q4HPRN PRN
mild pain
Aspirin 81 mg 01/29/25 08:00 01/30/25 08:07
Aspirin 81 Mg Chewable Tablet PO 02/26/25 07:59 81 mg
DAILY LALO Administration
Clopidogrel Bisulfate 75 mg 01/29/25 08:00 01/29/25 08:29
Clopidogrel 75 Mg Tablet PO 02/26/25 07:59 75 mg
On Hold: 01/29/25 17:14 DAILY LALO Administration
Rosuvastatin Calcium 10 mg 01/31/25 08:00
Rosuvastatin (Crestor) 10 Mg Tablet PO 02/28/25 07:59
DAILY LALO
Sodium Chloride 0 flush 01/28/25 22:00
Sodium Chloride 0.9% (Flush) Syringe IV 02/25/25 21:59
PER PROTOCOL LALO
Review of Systems
-
History Source: Patient
Constitutional: Reports No Symptoms
EENT: Reports No Symptoms
Respiratory: Reports No Symptoms
Cardiac: Reports Other (chest tightness occasionally)
GI: Reports No Symptoms
: Reports No Symptoms
Musculoskeletal: Reports No Symptoms
Neuro: Reports No Symptoms
Psych: Reports No Symptoms
Physical Exam
-
General: Well Developed and No Apparent Distress
Cardiology: Normal Sinus Rhythm
Pulmonary: Clear
GI: Soft
Skin: Warm and Dry
Psych: Calm
Labs
Lab Results
WBC 7.1 10^3/uL (4.8-10.8) 01/30/25 04:17
RBC 5.08 10^6/uL (4.70-6.10) 01/30/25 04:17
Hgb 14.9 g/dL (13.0-18.0) 01/30/25 04:17
Hct 44.5 % (39.0-52.0) 01/30/25 04:17
MCV 87.6 fL (80.0-94.0) 01/30/25 04:17
MCH 29.3 pg (27.0-31.0) 01/30/25 04:17
MCHC 33.5 g/dL (33.0-37.0) 01/30/25 04:17
RDW 14.2 % (11.5-14.5) 01/30/25 04:17
Plt Count 104 10^3/uL (130-400) L 01/30/25 04:17
MPV 11.8 fL (7.4-10.4) H 01/30/25 04:17
Abs Immat Gran (auto) 0.0 10^3/uL (0-0.05) 01/29/25 03:12
Absolute Neuts (auto) 3.6 10^3/uL (1.4-6.5) 01/29/25 03:12
Absolute Lymphs (auto) 2.3 10^3/uL (1.2-3.4) 01/29/25 03:12
Absolute Monos (auto) 0.8 10^3/uL (0.1-0.6) H 01/29/25 03:12
Absolute Eos (auto) 0.4 10^3/uL (0-0.7) 01/29/25 03:12
Absolute Basos (auto) 0.1 10^3/uL (0-0.2) 01/29/25 03:12
Immature Gran % 0.1 % (0-0.5) 01/29/25 03:12
Neutrophils % 50.2 % (42.2-75.2) 01/29/25 03:12
Lymphocytes % 32.5 % (20.5-51.1) 01/29/25 03:12
Monocytes % 10.5 % (1.7-9.3) H 01/29/25 03:12
Eosinophils % 5.6 % (0-6) 01/29/25 03:12
Basophils % 1.1 % (0-2) 01/29/25 03:12
Creatinine 0.7 mg/dL (0.7-1.3) 01/30/25 04:17
Vital Signs
Vital Signs
Temp Pulse Resp BP Pulse Ox
97.2 F 60 18 111/76 98
01/30/25 08:01 01/30/25 08:00 01/30/25 08:01 01/30/25 07:59 01/30/25 08:01

Documented by User: Ric Aviles MD 01/30/25 12:46
Plan
Plan
Hold heparin in the absence of recurrent cardiac symptoms until HIT antibody results
HIT panel pending
Patient will need argatroban if recurrent symptoms
Hematology Addendum:
Patient seen and evaluated and agree w/ resident note and plan
-pt presented w/ moderate thrombocytopenia - plts 124,000 - dropping to 104,000 today on heparin
-pattern of drop is not entirely c/w HIT - though, w/ exposure - will check HITab
-discussed case w/ cardiology - Dr. Blancas - who agreed w/ holding heparin
-if patient were to become symptomatic from a cardiac perspective alternative anticoagulation could be considered potentially w/ argatroban
-follow CBC
Will continue to follow with you
--- NOTE | 2025-01-30 11:11 | PTCARENOTE ---
Patient returned from CT/US, labs drawn and heparin discontinued as ordered. Patient taken for KATARINA/echo.
[2025-01-30 11:13] LABS: Reticulocyte Count 1.1 % (0.4-2.8)
[2025-01-30 12:43] LABS: Folate 19.4 ng/ml (2.76-20); Vitamin B12 351 pg/ml (239-931)
[2025-01-30 13:04] VITALS: BP 123/81
--- NOTE | 2025-01-30 13:11 | PTCARENOTE ---
Patient returned from echo KATARINA, AAO, family member at the bedside, patient assisted to the chair. Patient offers no complaints, wants to eat. Given water and will order lunch, block and case maker in doing pre op teaching.
--- NOTE | 2025-01-30 13:29 | CM ---
Reviewed chart. Met with and Mrs. Luo to review discharge plans. He states prior to admission he resides with his spouse in a two story home with one step to enter. He states he has a full flight of steps to get to bedroom/full bathroom.
He states he has a powder room on the first floor. He states prior to admission he was independent with ambulation and adls. He states he does not have any DME in the home. He states he has a prescription plan. His spouse states she will be home
to assist in his care if needed. Medical work-up in progress. The discharge plan is to return home with his spouse and a home visit by the Transitional Care Nurse when medically stable.
We reviewed pre-op and post-op routines. We briefly reviewed the shower instructions. Gave him the Cardiothoracic Surgery Educational Booklet. We reviewed the restrictions including sternal precautions and driving restrictions. We also discussed
a home visit by the Transitional Care Nurse. He is agreeable to a home visit. The plan is for is for CABG and MVR on February [id number].
[2025-01-30 13:37] VITALS: BP 121/88
--- NOTE | 2025-01-30 14:39 | W.PN.UPDATE ---
Update Note
Progress Note Update
STS Risk Score:
Procedure Type:�CABG + MVR
Perioperative Outcome Estimate %
Operative Mortality 3.61%
Morbidity & Mortality 14.7%
Stroke 1.94%
Renal Failure 2.12%
Reoperation 8.66%
Prolonged Ventilation 9.93%
Deep Sternal Wound Infection 0.078%
Long Hospital Stay (>14 days) 8.56%
Short Hospital Stay (<6 days)* 23%
Clinical Summary
Planned Surgery: CABG + MVR, Urgent, First cardiovascular surgery
Demographics: 74 year old, male, 94.5kg, 188cm, BMI: 26.7 kg/m�
Lab Values: Creatinine: 0.7 mg/dL, Hematocrit: 44.5%, WBC Count: 7.1 10�/�L, Platelet Count: 976625 cells/�L
Substance Abuse: Never smoker, Alcohol use: 2-7 drinks/week
Risk Factors / Comorbidities: Family Hx of CAD
Cardiac Status: Ejection Fraction = 41%
Coronary Artery Disease: 1 vessel diseased, Non-ST Elevation NJ, NJ: 1 to 7 Days
Valve Disease: Trivial/Trace AR, Severe MR, Trivial/Trace TR
[2025-01-30 18:59] VITALS: BP 127/63
--- NOTE | 2025-01-30 21:01 | PTCARENOTE ---
Received patient at change of shift. SR with a first degree on the monitor, HR in the 60s. R radial and R brachial sites intact and IDEA WORKER. No complaints from pt at this time, call reagan within reach.
[2025-01-30 22:37] VITALS: BP 117/72
[2025-01-31 04:49] VITALS: BP 112/81
[2025-01-31 05:02] VITALS: BMI 26.9
[2025-01-31 05:15] LABS: Hematocrit 44.4 % (39.0-52.0); Hemoglobin 15.1 g/dL (13.0-18.0); Mean Corp Hgb Conc. 34.0 g/dL (33.0-37.0); Mean Corpuscular Volume 89.0 fL (80.0-94.0); Platelet Count 107 10^3/uL (130-400); Red Cell Dist. Width 14.4 % (11.5-14.5)
[2025-01-31 05:32] LABS: Blood Urea Nitrogen 21 mg/dl (9-20); Calcium 8.9 mg/dl (8.4-10.2); Carbon Dioxide 24 mmol/L (22-30); Chloride 113 mmol/L (98-107); Estimated Creatinine Clearance 111 ml/min; Glucose 101 mg/dl (70-99); Potassium 4.2 mmol/L (3.5-5.1); Sodium 140 mmol/L (135-145); eGFR > 60.00
[2025-01-31 07:57] VITALS: BP 116/84
[2025-01-31] MEDS: LOW STRENGTH ASPIRIN 81 MG PO (08:19)
[2025-01-31] MEDS: CRESTOR 10 MG PO (08:19)
--- NOTE | 2025-01-31 08:22 | W.PN.HOSP.TC ---
Today's Communication/Plan
-
for CABG/MV repair possibly in AM
Assessment / Plan
Assessment / Plan
74yo M with HLD came with episode of substernal chest pressure and found cardiac murmur, managed for NSTEMI s/p right and left heart cath on 01/29/25, found LAD stenosis with global hypokinesia of L ventricle and significant MR. S/P KATARINA for anatomy
ahead of CTX intervention. Planned for CABG and MV repair
A/P:
#severe MR
#NSTEMI
#HLD
s/p cardiac cath by card and heparin
ASA, Plavix, statin
CTX for intervention
#Thrombocytopenia
mild sisnce admission
Hematology advised argatroban if further AC needed
HIT pending
#Gilbert syndrome
indirect bilirubinemia with normal LDH and retics
#DISH
tylenol
PT/OT
DVT ppx SCDs
Full code
I have spent at least 56min reviwing chart, test resuklts, communication with consultants and providing direct patient care
Anticipated Discharge: > 48 hours
Subjective/Interval History
-
Date of Service: January 31, 2025
Objective Data
-
Labs:
Laboratory Results
01/31/25
04:56
WBC 6.9
Hgb 15.1
Hct 44.4
Plt Count 107 L
Sodium 140
Potassium 4.2
Chloride 113 H
Carbon Dioxide 24
BUN 21 H
Creatinine 0.7
Glucose 101 H
Calcium 8.9
Vital Signs:
Vital Signs
Temp Pulse Resp BP Pulse Ox
97.4 F 73 18 116/84 97
01/31/25 07:53 01/31/25 08:00 01/31/25 07:53 01/31/25 07:57 01/31/25 07:53
I&O
01/30/25 01/31/25 02/01/25
06:59 06:59 06:59
Intake Total 345 / 345
Output Total
Balance 343 / 343
Review of Systems
-
History Source: Patient
All other systems: Reviewed and negative
Physical Exam
-
General: No Apparent Distress
HEENT: Normocephalic
Respiratory: Clear to Auscultation
Cardiac: Regular Rhythm and Murmur
GI: Soft, Nontender and Nondistended
Musculoskeletal: No Clubbing, No Cyanosis and No Edema
Neuro: Awake, Alert, Oriented and AO x 3
Psych: Calm
--- NOTE | 2025-01-31 08:59 | W.PN.UPDATE ---
Update Note
Progress Note Update
platelets stable 107,000. I called lab -HIT pending.
[2025-01-31] MEDS: TOPROL XL 12.5 MG PO (09:24)
[2025-01-31] MEDS: MILK OF MAGNESIA 30 ML PO (09:26)
--- NOTE | 2025-01-31 09:30 | PTCARENOTE ---
Pt w/ 14 beat run of VT. HR 155. BP 116/84. Pt OOB in chair and asymptomatic. Donavan SINTER MACHINE OPERATOR and Christi PATEL made aware and orders placed. PO Metoprolol XL 12.5mg ordered and administered. See SEP.
[2025-01-31 11:25] VITALS: BP 123/66
--- NOTE | 2025-01-31 13:15 | W.PN.CARDCBS ---
Today's Communication / Plan
-
Patient scheduled for surgery tomorrow
Impression / Plan
-
PCP: Dr. Racheal Gomez at [facility]
Card: None, first seen this admit by Dr Blancas
Impression:
Admission with chest pain and elevated Troponin 01/28/25
Elevated Troponin concerning for NSTEMI
CAD w/95% LAD stenosis cath 01/29/2025
severe MR-new diagnosis
Hyperlipidemia
FH premature CAD
Murmur of MR
Thrombocytopenia
Echo 01/29/25: Dilated LV, EF 51%, severe eccentric MR and severely dilated LA, mild bileaflet mitral valve prolapse, trace AI, top normal RV size, preserved RV systolic function
Right and left heart cath 01/29/2025: RA 6, PA 31/13, PCWP 15, V waves to 29, CO/CI 4.1/1.9. LAD: Ulcerated high-grade LAD stenosis 95%, circumflex: Medium caliber nondominant vessel supplying 2 small OM branches. RCA large caliber widely patent
with minor irregularities. PDA and posterolateral branch is large. Dilated global hypokinetic LVEF 40%, and 4+ MR.
Plan:
He had brief angina last night. Comfortable now.
HIT panel is pending.
Patient is scheduled for surgery February 01.
Will continue to follow.
Progress Note - Glass Artist
Subjective
Date of Service: January 31, 2025:
74-year-old man with little past medical history admitted yesterday with chest discomfort, detectable troponin and increasing intermittent dyspnea on exertion over the last few months
PMH: Hyperlipidemia
Current meds: Aspirin 81 mg a day, Rosuvastatin 10 mg a day, metoprolol ER 12.5 mg daily
Brief chest discomfort yesterday
123/66, pulse 60, respirations 16, afebrile, head neck exam unremarkable, lungs are clear MR murmur, extremities without clubbing cyanosis or edema
Hemoglobin 15.1, platelets 107, stable, it pending, BUN/creatinine are 21 and 0.7, potassium is 4.2
Objective
Labs:
01/31/25 04:56
01/31/25 04:56
Labs
Hgb 15.1 g/dL (13.0-18.0) 01/31/25 04:56
Hct 44.4 % (39.0-52.0) 01/31/25 04:56
Plt Count 107 10^3/uL (130-400) L 01/31/25 04:56
PT 14.7 Sec (11.4-14.6) H 01/30/25 04:17
INR 1.10 01/30/25 04:17
APTT Cancelled 01/30/25 11:17
Sodium 140 mmol/L (135-145) 01/31/25 04:56
Potassium 4.2 mmol/L (3.5-5.1) 01/31/25 04:56
BUN 21 mg/dl (9-20) H 01/31/25 04:56
Creatinine 0.7 mg/dL (0.7-1.3) 01/31/25 04:56
Glucose 101 mg/dl (70-99) H 01/31/25 04:56
Troponins
01/28/25 01/28/25 01/28/25
14:15 17:06 20:16
Troponin I 0.037 H* 0.065 H* D 0.069 H*
01/28/25 01/29/25 01/29/25
23:16 00:48 03:48
Troponin I 0.049 H* D Cancelled Cancelled
Vital Signs and I&O:
Vital Signs
Temp Pulse Resp BP Pulse Ox
36.7 C 60 16 123/66 94
01/31/25 11:26 01/31/25 11:25 01/31/25 11:26 01/31/25 11:25 01/31/25 11:26
Vital Signs
Temp Pulse Resp BP Pulse Ox
36.7 C 60 16 123/66 94
01/31/25 11:26 01/31/25 11:25 01/31/25 11:26 01/31/25 11:25 01/31/25 11:26
Intake & Output
01/29/25 01/30/25 01/31/25 02/01/25
07:59 07:59 07:59 07:59
Intake Total 232 / 232 345 / 345
Output Total 2 / 2
Balance 232 / 232 343 / 343
Physical Exam
Physical Exam
See above
[2025-01-31 15:14] VITALS: BP 140/70
[2025-01-31 19:26] VITALS: BP 132/66
--- NOTE | 2025-01-31 21:49 | PTCARENOTE ---
Received patient at change of shift. SR on the monitor, HR in the 60s. Patient clipped and showered with CHG soap. No complaints from pt at this time, call reagan within reach.
[2025-01-31 22:02] VITALS: BP 131/78
[2025-02-01] VITALS (16 sets, daily range): BP systolic 82–134; BP diastolic 51–90; BMI 26.5
[2025-02-01 05:20] LABS: Hematocrit 44.4 % (39.0-52.0); Hemoglobin 14.6 g/dL (13.0-18.0); Mean Corp Hgb Conc. 32.9 g/dL (33.0-37.0); Mean Corpuscular Volume 90.2 fL (80.0-94.0); Nucleated Red Blood Cells % 0 % (-); Platelet Count 107 10^3/uL (130-400); Red Cell Dist. Width 14.3 % (11.5-14.5)
[2025-02-01 05:23] LABS: INR 1.08; PT 14.3 Sec (11.4-14.6)
[2025-02-01 05:24] LABS: APTT 29.2 Sec (23.4-35.0)
[2025-02-01 05:46] LABS: ALT (SGPT) 28 U/L (0-50); AST (SGOT) 27 U/L (17-59); Albumin 3.8 g/dl (3.5-5.0); Alkaline Phosphatase 44 U/L (38-126); Blood Urea Nitrogen 20 mg/dl (9-20); Calcium 8.7 mg/dl (8.4-10.2); Carbon Dioxide 23 mmol/L (22-30); Chloride 111 mmol/L (98-107); Estimated Creatinine Clearance 111 ml/min; Glucose 95 mg/dl (70-99); Magnesium 2.0 mg/dl (1.6-2.3); Potassium 4.0 mmol/L (3.5-5.1); Sodium 140 mmol/L (135-145); Total Protein 6.1 g/dl (6.3-8.2); eGFR > 60.00
[2025-02-01] MEDS: MAGNESIUM OXIDE 500 MG PO (06:00)
[2025-02-01] MEDS: LOPRESSOR 25 MG PO (06:00)
[2025-02-01] MEDS: PROTONIX 40 MG PO (06:00)
[2025-02-01] MEDS: BACTROBAN 2% OINTMENT 1 APPLIC NASAL ×2 (06:00→19:47)
--- NOTE | 2025-02-01 06:22 | W.CVOR.SURPR ---
CVOR Surgeon Immed Pre Op
-
I have examined this patient prior to performance of the scheduled procedure.
The patient's condition is unchanged from the time of the dictated/written History and
Physical and the patient is able to undergo the scheduled procedure.
MV Repair + CABG x 1 + LAAE
[2025-02-01 07:55] LABS: ACT+ - POC 123 Seconds (82-134)
[2025-02-01 07:57] LABS: Urine Character Clear (Clear)
[2025-02-01 08:06] LABS: Urine Red Blood Cell None Seen /HPF (0-2); Urine Squamous Cell 0-2 /LPF (Few); Urine White Cell 0-2 /HPF (0-5)
[2025-02-01 08:56] LABS: ACT+ - POC 536 Seconds (82-134)
[2025-02-01 09:28] LABS: ACT+ - POC 599 Seconds (82-134)
[2025-02-01 10:06] LABS: ACT+ - POC 529 Seconds (82-134)
[2025-02-01 10:15] LABS: B.E. - POC 2.3 mmol/L; Glucose - POC 151 mg/dl (70-99); HCO3 - POC 26 mmol/L (21-28); Hematocrit - POC 36 % PCV (42-52); Hemodilution- POC Yes; Hemoglobin Calculated - POC 12.4; Ionized Calcium - POC 1.13 mmol/L (1.15-1.33); Lactate - POC 0.87 mmol/L (0.36-0.75); O2 Saturation %Calculated-POC 100.0 % (94-98); PCO2 - POC 36 mmHg (35-48); PO2 - POC 339 mmHg (83-108); POC Comment CPB; Potassium - POC 4.6 mmol/L (3.5-5.1); Sodium - POC 141 mmol/L (136-145); Specimen Type - POC Arterial; pH - POC 7.47 (7.35-7.45)
[2025-02-01 10:47] LABS: B.E. - POC 0.8 mmol/L; Glucose - POC 140 mg/dl (70-99); HCO3 - POC 26 mmol/L (21-28); Hematocrit - POC 37 % PCV (42-52); Hemodilution- POC Yes; Hemoglobin Calculated - POC 12.5; Ionized Calcium - POC 1.20 mmol/L (1.15-1.33); Lactate - POC 1.45 mmol/L (0.36-0.75); O2 Saturation %Calculated-POC 99.6 % (94-98); PCO2 - POC 45 mmHg (35-48); PO2 - POC 189 mmHg (83-108); POC Comment CPB; Potassium - POC 4.5 mmol/L (3.5-5.1); Sodium - POC 142 mmol/L (136-145); Specimen Type - POC Arterial; pH - POC 7.38 (7.35-7.45)
[2025-02-01 10:55] LABS: ACT+ - POC 448 Seconds (82-134)
[2025-02-01 11:06] LABS: B.E. - POC 0.8 mmol/L; Glucose - POC 142 mg/dl (70-99); HCO3 - POC 25 mmol/L (21-28); Hematocrit - POC 34 % PCV (42-52); Hemodilution- POC Yes; Hemoglobin Calculated - POC 11.7; Ionized Calcium - POC 1.12 mmol/L (1.15-1.33); Lactate - POC 1.63 mmol/L (0.36-0.75); O2 Saturation %Calculated-POC 100.0 % (94-98); PCO2 - POC 39 mmHg (35-48); PO2 - POC 417 mmHg (83-108); POC Comment WARM; Potassium - POC 4.5 mmol/L (3.5-5.1); Sodium - POC 144 mmol/L (136-145); Specimen Type - POC Arterial; pH - POC 7.42 (7.35-7.45)
[2025-02-01 11:16] LABS: ACT+ - POC 131 Seconds (82-134)
[2025-02-01 11:41] LABS: B.E. - POC 0.5 mmol/L; Glucose - POC 138 mg/dl (70-99); HCO3 - POC 25 mmol/L (21-28); Hematocrit - POC 36 % PCV (42-52); Hemodilution- POC Yes; Hemoglobin Calculated - POC 12.2; Ionized Calcium - POC 1.42 mmol/L (1.15-1.33); Lactate - POC 1.78 mmol/L (0.36-0.75); O2 Saturation %Calculated-POC 92.1 % (94-98); PCO2 - POC 40 mmHg (35-48); PO2 - POC 64 mmHg (83-108); POC Comment POST; Potassium - POC 3.8 mmol/L (3.5-5.1); Sodium - POC 140 mmol/L (136-145); Specimen Type - POC Arterial; pH - POC 7.41 (7.35-7.45)
[2025-02-01 11:51] LABS: ACT+ - POC 142 Seconds (82-134)
--- NOTE | 2025-02-01 11:52 | W.PN.CT.SURG ---
CT Surgery Operative Note
-
CARDIAC SURGERY OPERATIVE REPORT
Preoperative Diagnosis: NSTEMI and severe mitral valve insufficiency with heart failure
Postoperative Diagnosis: Same, new onset atrial fibrillation
Procedure(s) Performed:
1. Standard sternotomy with aortic and bicaval cannulation
2. Internal left mammary artery harvesting and single-vessel bypass [MICHAEL to LAD]
3. Full left atrial maze [RF and cryoablation] and left atrial appendage exclusion [45 mm clip]
4. Radical mitral valve repair [triangular resection of P2 and P3 at the cleft, primary reapproximation of P2/3, 4 sets of Bexar-Be cords placed to the posterior leaflet, anterolateral commissuroplasty, 40 mm band annuloplasty]
5. PFO closure, done primarily
6. Placement of temporary atrial and ventricular pacing wires
7. Transesophageal echocardiography
Date of Surgery: 02/01/2025
Comorbidities:
1. NSTEMI with proximal LAD disease, ulcerated plaque
2. Severe mitral valve insufficiency with reduced left ventricular ejection fraction of 50% and dilated LV
3. Thrombocytopenia
4. 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
5. New onset atrial fibrillation
Attending Surgeon: Kenny Posadas MD, MS
Assistants: Kayley Estrada PA-C (present and necessary to registered nurse first assistant, retraction, suction, exposure, suture management, and wound closure under my direction)
Anesthesiology: Thanh Drummond MD
Scrub and Circulating RNs: Augustus Loyd, RN, Manan Pitts RN
Foundry Equipment Mechanic: Jeremias Mcleod CCP
Anesthesia: GETA
EBL: per perfusion records
Products: none, 600cc of CellSaver Scavenged Blood
CPB Time: 120 minutes
Aortic Cross Clamp Time: 103 minutes
Indication(s) for Procedures: This is a 74-year-old male who is having shortness of breath walking up an incline. He presented to the emergency department and ruled in for an NSTEMI. As part of his workup he was found to have severe mitral valve
insufficiency unbeknownst to him. His left ventricular ejection fraction was also reduced to 50% and his LV was dilated to 4.8 cm in systole. He given his combined coronary disease and valvular pathology, he was kept as an inpatient for surgical
intervention.
Mitral Valve Description: Juares appearing valve with multiple flail cords at the P2 and P3 cleft. The leaflet tear appea to be abnormal, the annulus was also asymmetrically dilated mostly towards the P2 P3 region. He had very long and tall
leaflets anterior and posterior. There was some prolapsing of the posterior leaflet as well.
Findings: His left ventricular ejection fraction preoperatively was 45 to 50% and his LV was dilated and the systolic 80s to approximately 4.8 cm. His mitral valve was very myxomatous with bileaflet prolapse resembling a Juares valve. There was
clearly multiple torn cords at the P2 and P3 interface. Following surgery his EF did look little bit better at 55% however he was on 4 of Dobutrex at this time. His mitral valve was repaired using a combination of triangular resection of the P2
and P3 cleft and primary reapproximation with multiple interrupted 5-0 Prolene sutures done in a [id number] manner. A total of 4 pairs of Bexar-Be sutures were placed from both the anterior lateral and posterior medial papillary muscle heads
along the posterior coaptation margin. This was to help bring down the posterior leaflet hide and promote a posterior coaptation margin. I performed a commissural plasty at A1 P1 as there was some billowing of the leaflet tissue here but no ozzy
leakage. A total of 10 nonpledgeted 2 Ethibond sutures were placed from trigone to trigone securing a 40 mm band annuloplasty into place with core knots. Dynamic inflation and pressurization of the LV demonstrated good pressure and no residual
mitral valve insufficiency and a posterior coaptation margin. Single-vessel bypass was also performed to the LAD with good visual flow in the LAD territory with visibly pinking up of the myocardium upon release the bulldog clamp. He was in atrial
fibrillation upon sternotomy and pericardiotomy and so I elected to perform a full left atrial maze with left atrial appendage exclusion. His left atrial appendage was verified to be free of any thrombus or debris preoperatively and found to be
totally occlusive postoperatively. After coming off of cardiopulmonary bypass there was no residual mitral valve insufficiency and the mean gradient across the valve was 1 mmHg there is no systolic anterior motion the leaflets. All other valves
were normal. He was placed on 4 of the dobutamine preemptively, did not require any blood products and received 600 of scavenged blood from the field via Cell Saver. He was in his sun'aq sinus rhythm at the end of the case.
Ablation Lines:
1. Box lesion to posterior LA wall
2. BENJAMIN lesion + BENJAMIN Exclusion
3. Coronary sinus lesion
4. Posterior mitral annular line toward P2/P3
Specimen(s): P2 P3 scallop.
Prosthesis:
1. 45 mm left atrial appendage clip, serial #[id number]
2. 40 mm Garsia physio flex band annuloplasty, serial #[id number]
3. 4 pairs of CV 4 Bexar-Be sutures
5. Multiple 5-0 Prolene's.
Description of Procedure: The patient was taken to the operating room. Their identity and procedure to be performed were verified and they were positioned supine on the operating table. Induction via general anesthesia with endotracheal intubation
was performed and central venous access and arterial monitoring were inserted. A preoperative transesophageal echocardiogram was performed to assess cardiac function and valvular function. The patient was then prepped and draped from chin to feet in
a sterile fashion. A preoperative time-out was performed with all members of the team present. A midline chest incision was performed along with median sternotomy. A Rultract was then placed elevate the left hemithorax. The pleural space was
entered and the left internal mammary artery was harvested in a skeletonized fashion. While harvesting I gave 5000 heparin and then divided the distal end of the mammary with demonstrated excellent flow. This was then clipped with medium clips and
placed back into a papaverine soaked Ray-Randee into the left hemithorax. I exchanged the Rultract for a median sternotomy retractor at this point. The innominate vein was isolated. Full heparinization was given (a total of 55,000 units). We created
a pericardial well. The aortic cannulation site was chosen where it was soft, pliable, and free of calcium. Cannulation was performed with an arterial cannula in the ascending aorta, angled metal tip cannular in the superior vena cava and straight
bendable cannula in the inferior vena cava. The arterial cannula line had an appropriate bounce and correlating pressures. Next, a root vent/antegrade cannula was inserted into the ascending aorta. The ACT was confirmed to be over 400 and retrograde
autologous priming was performed before commencing cardiopulmonary bypass. The SVC was off of the right pulmonary artery and the oblique sinus was then developed. The encompass clamp was then passed underneath the SVC and IVC across the
transverse and oblique sinuses, respectively. 3 successful pairs ablation were performed with the RF clamp. The pulmonary artery was away from the aorta to facilitate a clamp site. Sondergaard�s groove was developed heading toward the
oblique sinus. The aortic cross-clamp was placed after decreasing the flow on the bypass and mean arterial pressure. A total of 1.2L initial dose of antegrade Del-Nido cardioplegia solution was given and planned for re-dosing every 60 minutes as
necessary. There was rapid electro-mechanical arrest of the heart at 300 cc of cardioplegia. The left ventricle was observed for distention on echocardiogram and manual palpation. Cold slush was placed into a lap on the RV and we systemically cooled
to 34 degrees centigrade. At this point the heart was rotated medially and the left atrial appendage was clipped flush to the base.
The LAD was exposed using a Scurry blade and a small coronary arteriotomy was then created. A pericardiotomy was then created down towards the left side avoiding injury to the phrenic nerve which was visualized. The MICHAEL was then brought into the
field and the underbelly was incised. A skhh-ar-nxsb anastomosis was then created with 7-0 Prolene and tied. The bulldog was then removed temporarily and there was excellent visual flow in the LAD territory with warming up and pinking up of the
myocardium. Carbon dioxide was used to flood the field. The mitral valve was access via the Sondergaard's groove followed by valve analysis. Additional cryo ablation lines and then performed here to the coronary sinus and the mitral isthmus
followed by the left atrial Penders line to the box lesion the mitral valve was repaired as described above. I then visualized the PFO and closed this with 5-0 Prolene in a running baseball stitch. Deairing maneuvers were performed while the left
atrium was closed with a 3-0 prolene in a single layer. The bulldog clamp was then removed from the MA at this point.
Additional de-airing maneuvers were performed and temporary bipolar ventricular pacing wires were placed on the base of the right ventricle along with temporary atrial pacing wires at the SVC right atrial junction. The patient was placed in a
Trendelenburg position and flows on bypass were lowered. The aortic cross clamp was removed and flows were slowly brought back up. The left atrial suture line was hemostatic. Transesophageal echocardiography revealed no evidence of systolic
anterior motion and ventricular function was normal. Once de-airing was satisfactory the root vent was removed. After verifying acceptable parameters, we initiated weaning from cardiopulmonary bypass. Once we were off cardiopulmonary bypass, the
venous cannulas was clamped and removed sequentially. A test dose of protamine was administered and the patient was monitored for any adverse reaction before resuming protamine. Once half of the protamine dose was delivered, pump suckers were turned
off and the systolic blood pressure was lowered for aortic decannulation. The aortic cannula was removed and purse strings were tied down. All cannulation sites were oversewn with a 4-0 prolene. The left atrial suture line was inspected and
hemostasis was confirmed, I did have to place a single 4-0 Prolene SH repair stitch along the suture line.. Mediastinal hemostasis was obtained. Two #24 Donavon drains were placed within the pericardium. 2 additional 19 Vietnamese Donavon drains were
placed into the left right hemithorax. The sternum was approximated with 4 #7 single and 3 #8 double stainless steel wires. Fascia was approximated with #1 vicryl suture. The subcutaneous, dermis and epidermis were closed in layers in a running
fashion. The skin wound was cleansed and dressed.
All instrument, sponge, and needle counts were confirmed to be correct x 2 at the end of the operation. The patient was transferred to the cardiac intensive care unit in critical but stable condition.
I, Dr. Kenny Posadas, was present, scrubbed for, and performed all critical elements of this procedure.
Kenny Posadas MD, MS
Cardiothoracic Surgeon
[facility]
This dictation was created using the MyTrainer dictation system. Please excuse any grammatical, typographical, or 'sound alike' errors
[2025-02-01 11:57] LABS: B.E. - POC -1.3 mmol/L; Glucose - POC 121 mg/dl (70-99); HCO3 - POC 25 mmol/L (21-28); Hematocrit - POC 37 % PCV (42-52); Hemodilution- POC Yes; Hemoglobin Calculated - POC 12.7; Ionized Calcium - POC 1.32 mmol/L (1.15-1.33); Lactate - POC 1.89 mmol/L (0.36-0.75); O2 Saturation %Calculated-POC 98.0 % (94-98); PCO2 - POC 49 mmHg (35-48); PO2 - POC 114 mmHg (83-108); Potassium - POC 3.7 mmol/L (3.5-5.1); Sodium - POC 142 mmol/L (136-145); Specimen Type - POC Arterial; pH - POC 7.32 (7.35-7.45)
[2025-02-01 12:20] LABS: Glucose - Point of Care 125 mg/dl (70-99)
[2025-02-01] MEDS: LR 250 ML IV ×4 (12:30→14:23)
[2025-02-01 12:31] LABS: B.E. -3.1 mmol/L; HCO3 23.2 mmol/L (21-28); O2 Saturation % 96.8 % (94-98); PCO2 45 mmHg (35-48); PO2 76 mmHg (83-108); Potassium 3.9 mMOL/L (3.5-5.1); Sodium 137 mMOL/L (136-145)
--- NOTE | 2025-02-01 12:34 | W.PN.UPDATE ---
Update Note
Progress Note Update
Patient went for OR prior to be sen by slicing machine feeder. Later switched to CTX service. Hospitalists will not follow unless consulted by CTX
[2025-02-01 12:37] LABS: Hematocrit 40.9 % (39.0-52.0); Hemoglobin 13.8 g/dL (13.0-18.0); Platelet Count 77 10^3/uL (130-400)
[2025-02-01 12:40] LABS: INR 1.50; PT 18.4 Sec (11.4-14.6)
[2025-02-01 12:41] LABS: APTT 29.8 Sec (23.4-35.0)
--- NOTE | 2025-02-01 12:41 | CON.INTV ---
Consultation
Consultation Request
Date/Time Consultation Requested: 02/01
Date/Time Consultation Performed: 02/01
Reason for Consultation: Critical care
Medical History
-
History of Present Illness:
History obtained from the chart as patient currently intubated. Patient is a 75-year-old male with history of hyperlipidemia who presents 01/28 with chest pain which occurred at around noon. He developed this while carrying light chairs up a hill.
He had associated diaphoresis, nausea. He went to urgent care, was told to go to the ED. Upon arrival to the ED, afebrile, pulse 77, 18 respiratory rate, blood pressure 130/87, 98%. Patient had mildly elevated troponin, elevated proBNP. Was
given aspirin, cardiology consulted, heparin therapy started. Patient underwent cardiac catheterization revealed wedge pressure 29 with V waves, ulcerated high-grade mid LAD stenosis, dilated hypokinetic left ventricle with EF 40%, 4+ MR. Patient
was seen by CT surgery, patient is now status post single bypass with mitral valve repair 02/01/2025. We are asked to help from critical care standpoint
Presently, patient is on dobutamine, norepinephrine, Precedex. Chest tube output noted. Patient awaiting DDAVP. Platelets 77
.
PMH: Hypercholesterolemia
Past Medical History
Past Medical History: None (See above)
Past Surgical History: None (See above)
Social History
Tobacco: Former Smoker
Alcohol: Daily (1-2 beers daily)
Drug: None
Personal:
Living: With Family
Family History
Family History: Other (Mother age 92. Father age 54 with heart attack.)
Allergies / Home Medications
Allergies
Allergy/AdvReac Type Severity Reaction Status Date / Time
No Known Allergies Allergy Verified 01/28/25 18:03
Home Medications
�Medication �Instructions �Recorded �Confirmed �Last Taken �Type
rosuvastatin 5 mg tablet 5 mg PO DAILY High Cholesterol 01/28/25 01/28/25 01/28/25 History
sildenafil 100 mg tablet 100 mg PO DAILY PRN ED 01/28/25 01/28/25 1 Week Ago History
~01/21/25
Review of Systems
-
Unable to Obtain full review of systems at this time due to: Patient Intubation
Vitals / Labs / Diagnostic Testing
Vital Signs
Temp Pulse Resp BP Pulse Ox
97.5 F 65 18 134/88 98
02/01/25 04:49 02/01/25 06:00 02/01/25 04:49 02/01/25 06:00 02/01/25 04:49
Laboratory Results
02/01/25 02/01/25
04:58 12:19
PT 14.3
INR 1.08
APTT 29.2
pH 7.32 L
pCO2 45
pO2 76 L
HCO3 23.2
O2 Delivery Level
Microbiology
01/28/25 23:16 Blood/Venous Blood Parasites Smear - Final
Diagnostic Testing:
Physical Exam
-
HEENT: Normocephalic and Other (Right IJ, left upper extremity A-line, chest tube)
Cardiovascular: S1/S2, Regular Rhythm, Murmur (n), Rub (n) and Peripheral Edema (n)
Respiratory: Wheeze (n), Rales (n), Rhonchi (n) and Other (Chest tube)
GI: Soft and Non Distended
Neurology: Other (Lethargic)
Skin: Good Color
General: Comfortable
Assessment
-
74-year-old male admitted 01/28/2025 with chest pain, ACS, echocardiogram with EF 51%, severe MR, coronary catheterization with ulcerated LAD lesion, severe MR, wedge pressure 29 with V waves. Patient treated with heparin therapy, Plavix, aspirin.
Patient now status post radical mitral valve repair with annuloplasty, PFO closure, single-vessel bypass, maze, left atrial appendage exclusion
S/p CABG x 1, MVR, with annuloplasty
Acute chest pain, shortness of breath, diaphoresis
Admitted 01/28/2025
NSTEMI
Thrombocytopenia
Right upper/middle pulmonary nodule image #42 (series 401)
8 mm per my review, may be fissural
Conditions present prior to admission
Daily alcohol use
Hypercholesterolemia
History of tobacco use
Family history of coronary disease
Plan/recommendations
At this time, patient is critically ill but remains stable
Currently on dobutamine, norepinephrine, Precedex
Receiving IV fluid bolus
Chest tube output noted
Awaiting DDAVP
Platelets 77
Chest x-ray ET tube appropriate, no thorax, chest tube in place. Carolina-Miguel Angel in place. Mild bibasilar atelectasis
Postoperative EKG sinus rhythm
Moving forward
Continue with management per CT surgery
Follow chest tube output, transfuse per protocol
EKG, chest x-ray adequate
Receiving IV fluid bolus at this time, marginal pressure noted
Currently on dobutamine, norepinephrine
PAS/PAD 29/18, RAP 6
Remains on volume-cycled ventilation, airway pressures adequate, FiO2 weaned down to 40%
Anticipate extubation later this afternoon
Reviewed CT imaging
There is an 8 mm right lower lobe nodule which may be fissural
Recommend follow-up CT chest in 3 to 6 months
Reviewed with critical care nursing
We will follow
TCCT 32 min
[2025-02-01] MEDS: KCL 50 IV (12:54)
[2025-02-01] MEDS: ANCEF 10 IV ×2 (12:56→12:57)
[2025-02-01 13:00] LABS: Blood Urea Nitrogen 21 mg/dl (9-20); Estimated Creatinine Clearance 111 ml/min; Glucose 128 mg/dl (70-99); Magnesium 2.8 mg/dl (1.6-2.3)
[2025-02-01 13:04] LABS: Glucose - Point of Care 134 mg/dl (70-99)
[2025-02-01] MEDS: CRESTOR PO (13:10)
[2025-02-01] MEDS: NSS 500 IV (13:10)
[2025-02-01] MEDS: LOW STRENGTH ASPIRIN PO (13:11)
[2025-02-01] MEDS: TOPROL XL PO (13:11)
--- NOTE | 2025-02-01 13:26 | PTCARENOTE ---
Received pt from CVOR at 1215; pt intubated and sedated; Pupils 3mm and reactive; NSR 1st Degree AVB on monitor and VSS; Epicardial A/V wires hook to box and box turned off currently; Stephen Payan floated to 53, Left A-line, PIV x1 all lines
leveled and zeroed; Insulin, Precedex, Dobutamine and Levo infusing see flow sheet for details; Lungs diminished; ETT 8 24@ lip; vent settings SIMV 40%/500/5/16; CT x4 to -20 wall suction no air leak and no crepitus noted; CT oozing DDAVP ordered
awaiting from pharmacy; hypoactive bowel sounds; Breen catheter draining yellow urine; palpable radial B/L pulses and weak B/L lower extremity pulses; no edema; all surgical sites C/D/I; see nursing documentation for further details.
CI 1.51
CO 3.35
SVR 1480
[2025-02-01] MEDS: DDAVP 56.75 MCG IV (13:36)
[2025-02-01 14:13] LABS: Glucose - Point of Care 141 mg/dl (70-99)
[2025-02-01] MEDS: TYLENOL PO (14:23)
--- NOTE | 2025-02-01 14:25 | PTCARENOTE ---
SBP Labile 70-80s, CTPA at bedside; Mediastinal CT 90 this hour, Right and Left Pleural 55 this hour, UP 20; Albumin 5%, LR 250ml bolus and 1 amp Sodium Bicard ordered per CTPA; awaiting platelets from lab; DDAVP ordered and transfused.
[2025-02-01] MEDS: ALBUMIN 5% 250 IV (14:38)
[2025-02-01] MEDS: SODIUM BICARBONATE 50 MEQ IV (14:38)
--- NOTE | 2025-02-01 14:46 | PTCARENOTE ---
1 unit of Platelets infusing.
[2025-02-01 15:04] LABS: Glucose - Point of Care 128 mg/dl (70-99)
[2025-02-01] MEDS: OFIRMEV 100 IV (15:50)
[2025-02-01 16:04] LABS: Glucose - Point of Care 110 mg/dl (70-99)
[2025-02-01 16:07] LABS: B.E. 0.3 mmol/L; HCO3 25.4 mmol/L (21-28); O2 Saturation % 98.8 % (94-98); PCO2 42 mmHg (35-48); PO2 105 mmHg (83-108); Potassium 4.3 mMOL/L (3.5-5.1); Sodium 137 mMOL/L (136-145)
[2025-02-01 16:09] LABS: Hematocrit 33.8 % (39.0-52.0); Hemoglobin 11.3 g/dL (13.0-18.0); Platelet Count 125 10^3/uL (130-400)
[2025-02-01] MEDS: CALCIUM GLUCONATE 100 IV ×2 (16:13→20:04)
[2025-02-01] MEDS: NEURONTIN PO (16:14)
[2025-02-01] MEDS: PACERONE PO (16:14)
--- NOTE | 2025-02-01 16:14 | PTCARENOTE ---
ABG reviewed with CTPA; respiratory at bedside and pt extubated; 6L NC.
--- NOTE | 2025-02-01 16:37 | RESPNOTE ---
1610-- Patient extubated to 6 liter NC without incident-97%
[2025-02-01 17:05] LABS: Glucose - Point of Care 144 mg/dl (70-99)
[2025-02-01] MEDS: CORDARONE 518 MG IV (17:43)
[2025-02-01] MEDS: LOW STRENGTH ASPIRIN 81 MG PO (17:44)
[2025-02-01] MEDS: ANCEF 5 IV (17:44)
[2025-02-01] MEDS: DILAUDID 0.25 MG IV (17:53)
--- NOTE | 2025-02-01 19:00 | PTCARENOTE ---
report received from previous RN, walking rounds done. pt in bed, sleeping. SR w 1st degree AVB + PACs on monitor, HR 50s-60s. epicardial AV wires intact and off. Levo gtt infusing @ 5mcg, Amio gtt infusing @ 0.5mg, Dobut gtt infusing @ 2mcg. SBP
100s. last CI 2.03. RIJ cordis w [place] intact w KVOs infusing. left radial art line intact. B/L radial and DP pulses palpable. heart tones clear. B/L breath sounds present. CT x4 intact to -20cm wall suction, drainage WNL, no air leak present. POX
99% on 6LNC. hypoactive bowel sounds present. Insulin gtt infusing per glycemic protocol. plaza catheter intact, draining CYU, UO adequate. all surgical sites stable. see worklist for full assessment, VS, and interventions.
[2025-02-01 19:10] LABS: Glucose - Point of Care 126 mg/dl (70-99)
[2025-02-01 19:46] LABS: B.E. -0.8 mmol/L; HCO3 24.3 mmol/L (21-28); O2 Saturation % 99.6 % (94-98); PCO2 41 mmHg (35-48); PO2 123 mmHg (83-108)
[2025-02-01] MEDS: DILAUDID 0.5 MG IV (19:47)
[2025-02-01] MEDS: SENOKOT-S 1 TABLET PO (19:47)
[2025-02-01 21:14] LABS: Glucose - Point of Care 124 mg/dl (70-99)
[2025-02-01] MEDS: ZOFRAN 4 MG IV (21:50)
[2025-02-01] MEDS: NEURONTIN 100 MG PO (21:50)
[2025-02-01] MEDS: PACERONE 200 MG PO (21:50)
[2025-02-01] MEDS: TYLENOL 1000 MG PO (21:50)
[2025-02-01] MEDS: FLEXERIL 5 MG PO (21:54)
[2025-02-01 21:57] LABS: Blood Urea Nitrogen 20 mg/dl (9-20); Calcium 9.0 mg/dl (8.4-10.2); Carbon Dioxide 24 mmol/L (22-30); Chloride 110 mmol/L (98-107); Estimated Creatinine Clearance 97 ml/min; Glucose 123 mg/dl (70-99); Magnesium 2.1 mg/dl (1.6-2.3); Potassium 4.2 mmol/L (3.5-5.1); Sodium 138 mmol/L (135-145); eGFR > 60.00
[2025-02-01 22:01] LABS: Glucose - Point of Care 123 mg/dl (70-99)
[2025-02-01] MEDS: MAGNESIUM SULFATE 50 IV (22:29)
[2025-02-01 22:33] LABS: Platelet Antibody, Direct IgG Negative (Negative); Platelet Antibody, Direct IgM Negative (Negative)
--- NOTE | 2025-02-01 23:00 | PTCARENOTE ---
no acute changes, VSS. pt AAOx4. SR/SB w PACs and PVCs, HR 50s-60s. SBP 100s. last CI 2.2. Levo gtt infusing @ 2mcg. Dobut infusing @ 1mcg. Amio gtt remains at 0.5mg. POX 96% on 2LNC. CT output and UO WNL. Insulin gtt maintained. all surgical sites
stable. pt sleeping between care.
[2025-02-01 23:09] LABS: Glucose - Point of Care 113 mg/dl (70-99)
[2025-02-01] MEDS: LEVOPHED 250 IV (23:36)
[2025-02-02] VITALS (31 sets, daily range): BP systolic 83–137; BP diastolic 56–89; BMI 27.4
--- NOTE | 2025-02-02 00:08 | W.PN.CT ---
Today's Communication / Plan
-
- POD #1
- Doing well. No major events overnight.
- Post op afib noted, converted back to sinus in OR, on amio gtt
- Tele review: Sinus arrhythmia, sinus bradycardia, multifocal PVCs
- Gtt's: Amio 0.5, Dobutamine 1, Levophed 2
- RA: 6 PA: 16/07 CI: 2.43 CO: 5.38 SVR 996
- CT 2M 100/470, R/L pleural 100/425 in 12/24 hrs
- UOP 440/885 in 12/24 hrs, ~ 40 cc/hr , Cr this AM 0.7
- PW: A+V wires
- wean down/off O2, IS use reinforced
- Continue current meds: Crestor, amio, asa, BB held
- Bowel regimen
- OOB, IS
Assessment / Plan
-
NSTEMI and severe mitral valve insufficiency with heart failure s/p CABG x1 (MICHAEL to LAD), Radical mitral valve repair [triangular resection of P2 and P3 at the cleft, primary reapproximation of P2/3, 4 sets of [place]-Be cords placed to the posterior
leaflet, anterolateral commissuroplasty, 40 mm band annuloplasty], Full left atrial maze [RF and cryoablation] and left atrial appendage exclusion [45 mm clip], PFO closure on 02/01/[address] Posadas POD #1
KATARINA 02/01/25: LVEF 45-50%, dilated LV, no RWMA, severe mitral regurgitation from annulus dilation and torn chordae, small L->R PFO
Proximal LAD disease 95% stenosis
Severe MR
HFmrEF
Thrombocytopenia
Myxomatous mitral valve disease
Hx daily EtOH use
hx HTN
Hx HLD
Hx tobacco abuse
Acute post op Afib
Acute blood loss anemia
Acute shock, circulatory
Acute coagulopathy
Subjective
Procedure
s/p CABG x1 (MICHAEL to LAD), Radical mitral valve repair [triangular resection of P2 and P3 at the cleft, primary reapproximation of P2/3, 4 sets of [place]-Be cords placed to the posterior leaflet, anterolateral commissuroplasty, 40 mm band
annuloplasty], Full left atrial maze [RF and cryoablation] and left atrial appendage exclusion [45 mm clip], PFO closure
-
Date of Service: February 02, 2025
Objective Data
-
PT 18.4 Sec (11.4-14.6) H 02/01/25 12:19
INR 1.50 02/01/25 12:19
APTT 29.8 Sec (23.4-35.0) 02/01/25 12:19
Vital Signs
Vital Signs
Temp Pulse Resp BP Pulse Ox
97.2 F 57 11 112/55 96
02/01/25 23:00 02/01/25 23:00 02/01/25 23:00 02/01/25 21:50 02/01/25 23:00
CT Intake/Output/Weight
02/01/25 02/01/25 02/02/25
06:59 18:59 06:59
Intake Total 2374.7 / 2884.1 509.4 / 2884.1
Output Total 1140 / 1490 350 / 1490
Balance 1234.7 / 1394.1 159.4 / 1394.1
SaO2: 96
Physical Exam
-
General: Awake, Oriented and AOx3
Cardiovascular: Regular rate & rhythm, No Murmurs and No Rub
Respiratory: Clear, Equal and Decreased Breath Sounds
Sternum: Stable
Incision: Clean, Dry and Intact
Extremities: No Edema and No Erythema
Data Reviewed
-
Lab Results: Results Reviewed
Medications: Active Meds Reviewed
Chest X-Ray: Report Reviewed
ECG: Report Reviewed
[2025-02-02 00:15] LABS: Glucose - Point of Care 94 mg/dl (70-99)
[2025-02-02 01:04] LABS: Glucose - Point of Care 105 mg/dl (70-99)
[2025-02-02 02:03] LABS: Glucose - Point of Care 99 mg/dl (70-99)
[2025-02-02] MEDS: ANCEF 5 IV ×2 (02:06→12:06)
[2025-02-02] MEDS: DILAUDID 0.5 MG IV ×3 (02:08→13:36)
--- NOTE | 2025-02-02 03:00 | PTCARENOTE ---
no acute changes. VSS. on/off low dose Levo gtt. Dobut gtt remains @ 1mcg, Amio gtt remains @ 0.5mg. SBP 120s. last CI 2.3. POX 95% on 2LNC. CT output and UO WNL. Insulin gtt maintained per protocol. all surgical sites stable. pt resting between
care.
[2025-02-02 04:16] LABS: Glucose - Point of Care 108 mg/dl (70-99)
[2025-02-02] MEDS: ROXICODONE 5 MG PO (04:21)
[2025-02-02 04:34] LABS: Hematocrit 32.3 % (39.0-52.0); Hemoglobin 10.9 g/dL (13.0-18.0); Mean Corp Hgb Conc. 33.7 g/dL (33.0-37.0); Mean Corpuscular Volume 89.2 fL (80.0-94.0); Platelet Count 108 10^3/uL (130-400); Red Cell Dist. Width 14.2 % (11.5-14.5)
[2025-02-02 04:56] LABS: Blood Urea Nitrogen 20 mg/dl (9-20); Calcium 8.2 mg/dl (8.4-10.2); Carbon Dioxide 22 mmol/L (22-30); Chloride 112 mmol/L (98-107); Estimated Creatinine Clearance 111 ml/min; Glucose 106 mg/dl (70-99); Magnesium 2.3 mg/dl (1.6-2.3); Potassium 4.4 mmol/L (3.5-5.1); Sodium 136 mmol/L (135-145); eGFR > 60.00
[2025-02-02] MEDS: TYLENOL 1000 MG PO ×3 (05:43→22:45)
[2025-02-02 05:52] LABS: Glucose - Point of Care 105 mg/dl (70-99)
[2025-02-02] MEDS: FLEXERIL 5 MG PO (07:41)
[2025-02-02] MEDS: NEURONTIN 100 MG PO ×3 (07:42→22:44)
[2025-02-02] MEDS: SENOKOT-S 1 TABLET PO ×2 (07:42→20:48)
[2025-02-02] MEDS: LOW STRENGTH ASPIRIN 81 MG PO (07:42)
[2025-02-02] MEDS: PROTONIX 40 MG PO (07:42)
[2025-02-02] MEDS: MAGNESIUM OXIDE 500 MG PO (07:42)
[2025-02-02] MEDS: PACERONE 200 MG PO ×3 (07:42→22:44)
[2025-02-02] MEDS: BACTROBAN 2% OINTMENT 1 APPLIC NASAL ×2 (07:43→20:48)
[2025-02-02] MEDS: CRESTOR 10 MG PO (07:46)
[2025-02-02 08:00] LABS: Glucose - Point of Care 91 mg/dl (70-99)
--- NOTE | 2025-02-02 08:40 | W.PN.INTV ---
Addendum entered and electronically signed by Yamile Hsieh MD 02/02/25 14:08:
Patient transferred to telemetry service.
Financial Planning Advisor service will sign off, please call as needed
Outpatient follow-up with pulmonary clinic
Original Note:
Today's Communication / Plan
Recommendations
- Continue to wean pressors as tolerated
- Incentive spirometry
- Patient will need outpatient follow-up with pulmonary clinic for the incidental finding of suspected pulmonary nodule.
Assessment
-
74-year-old male admitted 01/28/2025 with chest pain, ACS, echocardiogram with EF 51%, severe MR, coronary catheterization with ulcerated LAD lesion, severe MR, wedge pressure 29 with V waves. Patient treated with heparin therapy, Plavix, aspirin.
Patient now status post radical mitral valve repair with annuloplasty, PFO closure, single-vessel bypass, maze, left atrial appendage exclusion
Conditions present prior to admission
Daily alcohol use
Hypercholesterolemia
History of tobacco use
Family history of coronary disease
Assessment and plan:
#1. NSTEMI followed by [facility], CABG x 1 (01/2025) with Mitral valve annuloplasty
- POD #1.
- Patient currently extubated, saturating 96% on 4 L supplemental oxygen via nasal cannula, continue to wean oxygen as tolerated, incentive spirometry.
- Postoperative shock state resolved, currently down to only Levophed at 1, MAP of 79, anticipate continued weaning of Levophed later today
- [place] Angel in place, pulmonary pressure 33 x 13, mean of 20. CVP around
- After brief down to 77, platelet count currently 108 K
- Hemoglobin stable, mild drift noted 10.9 this morning. Electrolytes unremarkable.
- Currently on amiodarone infusion as well as insulin infusion per protocol.
- Chest x-ray suggestive of some subsegmental atelectasis, incentive spirometry, chest tubes in place.
#2. Right upper/middle pulmonary nodule image #42 (series 401)
- [address] Henao's review, may be fissural
- Out patient follow up with Pulmonary clinic, information added to discharge section.
- Reported h/o smoking
Critical Care time 35 mins -- The patient is admitted for acute critical illness for the treatment of vital organ failure and/or prevention of further life-threatening conditions. Total care includes time spent in review of history, physical exam,
medications, hemodynamic/ventilator parameters, laboratory data, imaging and discussion with house staff, pharmacy, respiratory therapy, check viewer, and nursing.
Subjective Dataa
Subjective Data
Date of Service:
Date of Service: February 02, 2025
Subjective:
Patient comfortably lying in bed, in no acute distress.
Objective Data
Data Reviewed
Vital Signs / I&O / Oxygen:
Vital Signs
Temp Pulse Resp BP Pulse Ox
98.0 F 58 24 96/66 100
02/02/25 08:00 02/02/25 08:00 02/02/25 08:00 02/02/25 08:00 02/02/25 07:45
Intake and Output
02/01/25 02/02/25 02/03/25
06:59 06:59 06:59
Intake Total 480 / 480 3335.0 / 3385.0 91.2 / 91.2
Output Total 1895 / 1940 100 / 100
Balance 480 / 480 1440.0 / 1445.0 -8.8 / -8.8
SaO2 [CPAP] 97
SaO2 [SIMV] 96
SaO2 100
Nasal Cannula flow liters per 4
minute
Physical Exam
General: Comfortable
HEENT: Normocephalic
Cardiovascular: S1-S2 and Peripheral Edema (trace edema bilaterally )
Respiratory: Clear
GI: Soft and Non Distended
Neurology: Awake and Alert
Skin: Warm
Labs/Micro/Reports
Lab Data
02/02/25 04:11
02/02/25 04:11
Laboratory Results
02/01/25 02/01/25 02/01/25
12:19 15:58 19:32
PT 18.4 H
INR 1.50
APTT 29.8
pH 7.32 L 7.39 7.38
pCO2 45 42 41
pO2 76 L 105 123 H
HCO3 23.2 25.4 24.3
O2 Delivery Level
--- NOTE | 2025-02-02 09:00 | PTCARENOTE ---
PT AAOx4 complaining of pain. SB on monitoe VSS; 2L NC decreased LS; GI WNL; plaza present w/ clear yellow urine; CTx4 w/ moderate drainage; PIVx1 & RIJC swan present and WNL see worklist for detailed assessment;
--- NOTE | 2025-02-02 09:38 | W.PN.ONC ---
Today's Communication / Plan
-
Thrombocytopenia
- continue to follow with CBC
No further inpatient recommendations at this time, please reach out with any further questions
Impression
Impression
Chest Pain
- Elevated Troponin concerning for NSTEMI
- CAD with 95% LAD stenosis cath 01/29/2025
- severe MR
- CABG x1 PO D2
Thrombocytopenia
- platelets 108 today
- HIT ab negative
- Coags WNL
Plan
Plan
Thrombocytopenia
- continue to follow with CBC
No further inpatient recommendations at this time, please reach out with any further questions
Subjective/Objective
Subjective/Objective
Patient seen at the bedside this morning. Patient states he is feeling alright, but experiencing generalized discomfort since his surgery. Patient is AAOx3, denies all ROS.
Vital Signs:
Vital Signs
Temp Pulse Resp BP Pulse Ox
98.0 F 52 15 96/66 99
02/02/25 09:00 02/02/25 09:00 02/02/25 09:00 02/02/25 08:00 02/02/25 09:00
Lab Results:
Laboratory Data
WBC 13.1 10^3/uL (4.8-10.8) H 02/02/25 04:11
Hgb 10.9 g/dL (13.0-18.0) L 02/02/25 04:11
Plt Count 108 10^3/uL (130-400) L 02/02/25 04:11
PT 18.4 Sec (11.4-14.6) H 02/01/25 12:19
INR 1.50 02/01/25 12:19
APTT 29.8 Sec (23.4-35.0) 02/01/25 12:19
eGFR > 60.00 02/02/25 04:11
[2025-02-02 11:55] LABS: B.E. - POC 0.3 mmol/L; Glucose - POC 108 mg/dl (70-99); HCO3 - POC 25 mmol/L (21-28); Hematocrit - POC 42 % PCV (42-52); Hemodilution- POC No; Hemoglobin Calculated - POC 14.3; Ionized Calcium - POC 1.23 mmol/L (1.15-1.33); Lactate - POC < 0.30 mmol/L (0.36-0.75); O2 Saturation %Calculated-POC 100.0 % (94-98); PCO2 - POC 41 mmHg (35-48); PO2 - POC 377 mmHg (83-108); POC Comment PRE; Potassium - POC 3.8 mmol/L (3.5-5.1); Sodium - POC 140 mmol/L (136-145); Specimen Type - POC Arterial; pH - POC 7.40 (7.35-7.45)
[2025-02-02 11:55] LABS: B.E. - POC 1.6 mmol/L; Glucose - POC 165 mg/dl (70-99); HCO3 - POC 28 mmol/L (21-28); Hematocrit - POC 37 % PCV (42-52); Hemodilution- POC Yes; Hemoglobin Calculated - POC 12.5; Ionized Calcium - POC 1.13 mmol/L (1.15-1.33); Lactate - POC < 0.30 mmol/L (0.36-0.75); O2 Saturation %Calculated-POC 100.0 % (94-98); PCO2 - POC 53 mmHg (35-48); PO2 - POC 453 mmHg (83-108); POC Comment CPB; Potassium - POC 5.1 mmol/L (3.5-5.1); Sodium - POC 142 mmol/L (136-145); Specimen Type - POC Arterial; pH - POC 7.34 (7.35-7.45)
[2025-02-02] MEDS: NSS 500 IV (12:06)
[2025-02-02 12:15] LABS: Glucose - Point of Care 101 mg/dl (70-99)
--- NOTE | 2025-02-02 12:52 | CM ---
Chart reviewed. Patient is OOB sitting in the chair. Patient is independent of ADLS, lives with his in a 2 STH, 1 JOSELITO, 0 DME. Plan is for the patient to return home with CT Transitional Care RN. CM to follow
--- NOTE | 2025-02-02 14:43 | W.PN.CARDCBS ---
Addendum entered and electronically signed by Ric Umana MD 02/02/25 15:57:
I saw and examined the patient.
The MACHINE FARMWORKER or PA's note was reviewed and I agree with the note.
Comment: General: Well developed, well nourished in NAD.
Neck: Supple, no JVD, HJR, carotids +2 B/L, no bruits bilaterally.
Heart: Non displaced PMI, RRR, no murmurs, No S3, S4, no rubs.
Lungs: Scattered rhonchi
Sternal dressings noted
Extremities: No clubbing, cyanosis or edema bilaterally.
Neuro: Grossly nonfocal, awake, alert and oriented x3.
Stable cardiology status. Remains on Levophed and dopamine. Remains in sinus rhythm on amiodarone drip. 2 chest tubes were removed today. Eventual anticoagulant patient for postop A-fib. Discussed with patient and at bedside. Discussed
with CT surgery PA's
Original Note:
Today's Communication / Plan
-
Remains on Levo and Dobut gtt
Remains on amio gtt, in SR
Eventually start OAC for post-op Afib vs Plavix for NSTEMI on admission
Impression / Plan
-
PCP: Dr. Racheal Gomez at [facility]
Card: None, first seen this admit by Dr Blancas
Impression:
s/p radical MV repair with [place]-Be cords and 40 mm band, CABG x1 with MICHAEL to LAD, LA MAZE with RF and cryo and BENJAMIN exclusion 02/01/25
Admission with chest pain and elevated Troponin 01/28/25
Elevated Troponin concerning for NSTEMI
CAD with 95% LAD stenosis cath 01/29/2025
severe MR-new diagnosis 01/29/25
Hyperlipidemia
FH premature CAD
Murmur of MR
Thrombocytopenia
Postop A-fib
Echo 01/29/25: Dilated LV, EF 51%, severe eccentric MR and severely dilated LA, mild bileaflet mitral valve prolapse, trace AI, top normal RV size, preserved RV systolic function
Right and left heart cath 01/29/2025: RA 6, PA 31/13, PCWP 15, V waves to 29, CO/CI 4.1/1.9. LAD: Ulcerated high-grade LAD stenosis 95%, circumflex: Medium caliber nondominant vessel supplying 2 small OM branches. RCA large caliber widely patent
with minor irregularities. PDA and posterolateral branch is large. Dilated global hypokinetic LVEF 40%, and 4+ MR.
Plan:
- Patient admitted with chest pain and elevated troponin on 01/28/2025 and found to have new severe MR by echo and LAD disease by cath both on 01/29/2025. Patient was seen by the CT surgery team and recommended CABG and MV repair which was performed
on 02/01/2025.
-As of 02/02/2025 the dobutamine is running at 1 mcg/kg/min, Levophed running at 2 mcg/min and amiodarone running at 0.5 mg/min on 02/02/25
-Hematology was following for thrombocytopenia, HIT antibody was negative. Plt has been up and down
-LDL 90 this admission and patient had been started on Crestor 5 mg daily by his PCP about 6 months prior to this admission. Continue higher dose Crestor 10 mg daily, dose increased this admission
-Patient was not taking any BP meds prior to admission, new to Lopressor 12.5 mg BID, but doses held due to hypotension
-New to aspirin 81 mg daily
-Patient with postop A-fib. Patient had full left atrial maze with radiofrequency and cryoablation. Patient had BENJAMIN exclusion confirmed by KATARINA at end of case. Remains on amiodarone gtt and will have to consider starting OAC pending recurrence of
atrial arrhythmia. If no plans to start OAC then would start Plavix for DAPT given NSTEMI on admission.
HPI: Patient came to [facility] ER yesterday with chest pain and was admitted with possible ACS and cardiology has been consulted. Patient reports intermittent SALCEDO over the last several months, but sometimes he can complete physical activity without any
symptoms and other times will have some SALCEDO chest pressure. He mows his lawn using a push mower weekly without any symptoms. 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
event and while walking he had pressure throughout his precordium and then when he reached his destination he was overwhelmingly fatigued and flopped down in his chair. A bystander thought he looked unwell and offered him Gatorade. Patient says
that the pain improved within 10 minutes of sitting down, but did not completely resolve and was still present close to an hour later when he and his were leaving the event. Patient went to urgent care and then was referred to the ER where his
initial troponin was 0.037 and then peaked at 0.065. Patient denies any previous cardiac testing. He was started on Crestor for hyperlipidemia about 6 months ago. His father had an UT and at age 54.
Progress Note - Finance Assistant
Subjective
Date of Service: February 02, 2025
No chest pain
Objective
Labs:
02/02/25 04:11
02/02/25 04:11
Labs
Hgb 10.9 g/dL (13.0-18.0) L 02/02/25 04:11
Hct 32.3 % (39.0-52.0) L 02/02/25 04:11
Plt Count 108 10^3/uL (130-400) L 02/02/25 04:11
PT 18.4 Sec (11.4-14.6) H 02/01/25 12:19
INR 1.50 02/01/25 12:19
APTT 29.8 Sec (23.4-35.0) 02/01/25 12:19
Sodium 136 mmol/L (135-145) 02/02/25 04:11
Potassium 4.4 mmol/L (3.5-5.1) 02/02/25 04:11
BUN 20 mg/dl (9-20) 02/02/25 04:11
Creatinine 0.7 mg/dL (0.7-1.3) 02/02/25 04:11
Glucose 106 mg/dl (70-99) H 02/02/25 04:11
Vital Signs and I&O:
Vital Signs
Temp Pulse Resp BP Pulse Ox
98.2 F 68 20 110/61 98
02/02/25 13:00 02/02/25 14:30 02/02/25 09:30 02/02/25 14:02 02/02/25 14:30
Vital Signs
Temp Pulse Resp BP Pulse Ox
98.2 F 68 20 110/61 98
02/02/25 13:00 02/02/25 14:30 02/02/25 09:30 02/02/25 14:02 02/02/25 14:30
Intake & Output
01/31/25 02/01/25 02/02/25 02/03/25
06:59 06:59 06:59 06:59
Intake Total 480 / 480 3335.0 / 3385.0 131.9 / 131.9
Output Total 1895 / 1940 520 / 520
Balance 480 / 480 1440.0 / 1445.0 -388.1 / -388.1
Physical Exam
Physical Exam
GEN: NAD. AAOx3
LUNGS: 1 L NC
CV: SR on tele.
[2025-02-02] MEDS: DILAUDID 0.25 MG IV ×2 (18:21→22:45)
[2025-02-02] MEDS: NOVOLOG FLEXPEN-MODERATE RESISTANCE 300 UNITS SC (18:27)
[2025-02-02 18:28] LABS: Glucose - Point of Care 159 mg/dl (70-99)
--- NOTE | 2025-02-02 20:30 | PTCARENOTE ---
Patient received OOB in chair. Family at bedside. Patient A+A+Ox3. No neurological deficits noted. No c/o headache, dizziness or lightheadedness. O2 at 2L via NC. SpO2 95%. Two Mediastinal chest tubes - Intact and patent - 20 ml red drainage
- No air leak - Dressing intact. Sinus Rhythm with First Degree AV Block. Rare PVC. AV wires. Heart rate 60-70's. Blood pressure 112/59 (75). Patient with no c/o chest pain, pressure or discomfort. Abdomen soft, nontender. Normoactive bowel
sounds. No BM. No c/o nausea. No vomiting. No urge to void at this time. Patient with no c/o back or flank pain. Positive, palpable pulses. Right I.J. Cordis. Sternal incision intact - Surgical adhesive - Open to air. Assessment as
documented.
[2025-02-02] MEDS: TOPROL XL 12.5 MG PO (20:48)
--- NOTE | 2025-02-02 23:00 | PTCARENOTE ---
Patient with no urge to void at this time. Bladder scanned for 216ml. Patient with no c/o bladder pain or discomfort. IV Dilaudid 0.25 mg for pain management. Assessment as documented.
[2025-02-02 23:04] LABS: Glucose - Point of Care 158 mg/dl (70-99)
[2025-02-03] VITALS (25 sets, daily range): BP systolic 93–137; BP diastolic 50–82; PULSE 62; O2SAT 97; BMI 26.0
--- NOTE | 2025-02-03 01:00 | PTCARENOTE ---
Patient resting in bed. Voided 100 ml yellow urine. No further changes from previous assessment.
[2025-02-03] MEDS: DILAUDID 0.25 MG IV (02:12)
--- NOTE | 2025-02-03 04:32 | W.PN.CT ---
Today's Communication / Plan
-
Plan:
-No major issues overnight. Hemodynamically and neurologically stable
-Off all drips
-Had intraop a-fib, converted to NSR in OR while on Amiodarone gtt
-Amiodarone gtt d/c'd d/t sinus bradycardia
-Cont. PO Amiodarone- decreased to 200 mg BID, switched Lopressor to Toprol XL given CM
-Cont. current meds (Crestor, Amiodarone, Toprol XL, ASA)
-Monitor platelets 92 today, was 108 yesterday, 124 preop
-D/C temporary A/V wires (pull)
-Consider d/c of remaining mediastinal chest tubes: 2 meds 110/210
-Maintain cordis another day
-Encourage use of IS
-OOB into chair/Ambulate
-Will repeat echo to reassess MV repair today vs tomorrow
-Home in 1-2 days
Assessment / Plan
-
NSTEMI and severe mitral valve insufficiency with heart failure s/p CABG x1 (MICHAEL to LAD), Radical mitral valve repair [triangular resection of P2 and P3 at the cleft, primary reapproximation of P2/3, 4 sets of [place]-Be cords placed to the posterior
leaflet, anterolateral commissuroplasty, 40 mm band annuloplasty], Full left atrial maze [RF and cryoablation] and left atrial appendage exclusion [45 mm clip], PFO closure on 02/01/[address] Posadas POD #2
KATARINA 02/01/25: LVEF 45-50%, dilated LV, no RWMA, severe mitral regurgitation from annulus dilation and torn chordae, small L->R PFO
Proximal LAD disease 95% stenosis
Severe MR
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
Thrombocytopenia
Myxomatous mitral valve disease
Hx daily EtOH use
hx HTN
Hx HLD
Hx tobacco abuse
Acute intraop Afib
Acute postop bradycardia, Amiodarone gtt d/c'd
Acute postop blood loss anemia
Acute postop thrombocytopenia on chronic thrombocytopenia (transfuse 2 {5pks} plts)
Acute shock, circulatory
Acute coagulopathy
Acute postop hypovolemia with subsequent hypervolemia
Discussed patient care with: Cardiology, Nursing, Respiratory Therapy, Pharmacy and Care Team
Subjective
-
Date of Service: February 03, 2025
Pt c/o mild incisional pain, otherwise feels well
Objective Data
-
PT 18.4 Sec (11.4-14.6) H 02/01/25 12:19
INR 1.50 02/01/25 12:19
APTT 29.8 Sec (23.4-35.0) 02/01/25 12:19
Vital Signs
Vital Signs
Temp Pulse Resp BP Pulse Ox
98.3 F 56 16 109/70 98
02/03/25 00:00 02/03/25 04:00 02/03/25 00:00 02/03/25 04:00 02/03/25 03:45
CT Intake/Output/Weight
02/02/25 02/02/25 02/03/25
06:59 18:59 06:59
Intake Total 960.3 / 3385.0 161.9 / 491.9 330 / 491.9
Output Total 755 / 1940 640 / 840 200 / 840
Balance 205.3 / 1445.0 -478.1 / -348.1 130 / -348.1
SaO2: 98 (2L)
Physical Exam
-
General: Awake, Oriented and AOx3
Cardiovascular: Regular rate & rhythm, No Murmurs and No Gallop
Respiratory: Decreased Breath Sounds (at bases, mild basilar crackles)
Sternum: Stable
Incision: Clean, Dry, Intact and Dressing Intact
Extremities: Other (+trace edema)
Data Reviewed
-
Lab Results: Results Reviewed
Medications: Active Meds Reviewed
Chest X-Ray: Report Reviewed and Image Reviewed
ECG: Report Reviewed and Image Reviewed
[2025-02-03] MEDS: ROXICODONE 5 MG PO ×3 (04:54→19:02)
[2025-02-03] MEDS: NSS 500 IV (04:54)
[2025-02-03] MEDS: TYLENOL 1000 MG PO ×3 (04:54→22:54)
[2025-02-03 04:55] LABS: Hematocrit 31.3 % (39.0-52.0); Hemoglobin 10.3 g/dL (13.0-18.0); Mean Corp Hgb Conc. 32.9 g/dL (33.0-37.0); Mean Corpuscular Volume 90.7 fL (80.0-94.0); Platelet Count 92 10^3/uL (130-400); Red Cell Dist. Width 14.6 % (11.5-14.5)
--- NOTE | 2025-02-03 05:00 | PTCARENOTE ---
Patient A+A+Ox3. No neurological deficits noted. Pain management with Roxicodone 5mg PO. Patient resting in bed. OOB in AM. Assessment/Interventions as documented.
[2025-02-03 05:23] LABS: Blood Urea Nitrogen 31 mg/dl (9-20); Calcium 8.6 mg/dl (8.4-10.2); Carbon Dioxide 29 mmol/L (22-30); Chloride 106 mmol/L (98-107); Estimated Creatinine Clearance 86 ml/min; Glucose 128 mg/dl (70-99); Magnesium 2.5 mg/dl (1.6-2.3); Potassium 4.8 mmol/L (3.5-5.1); Sodium 136 mmol/L (135-145); eGFR > 60.00
--- NOTE | 2025-02-03 06:15 | W.PN.ANS.POP ---
Anesthesia Post Operative
- Anesthesia Post Op Note
Vital Signs Stable-See Nursing Note: Yes
Airway Patent: Yes
Adequate Pain Control: Yes
Change in Mental Status: No
Current Postoperative Nausea & Vomiting: No
Anesthesia Complications: No
General Anesthetic Recall: No
Unplanned Admission: No
Post Op Hydration Adequate: Yes
[2025-02-03] MEDS: NOVOLOG FLEXPEN-MODERATE RESISTANCE SC (07:24)
--- NOTE | 2025-02-03 08:00 | PTCARENOTE ---
pt received from previous RN, oriented, OOB in chair. SB w/ 1st degree AVB on the monitor, occasional V pacing. A&V wires in place, VVI 40/10. SBP 100s. palpable pulses. pt on 2LNC, 96-98% POX. lungs diminished. productive cough. CTx2, no air leak
or crepitus noted. pt abdomen s/n, denies n/v. diet tolerated. voids in urinal. sternal incision WIL, approximated. chest tube site intact. RIJ cordis maintained. PIV. see worklist for VS, I&O, and assessment.
[2025-02-03] MEDS: PROTONIX 40 MG PO (08:54)
[2025-02-03] MEDS: NEURONTIN 100 MG PO ×3 (08:54→22:55)
[2025-02-03] MEDS: CRESTOR 10 MG PO (08:54)
[2025-02-03] MEDS: SENOKOT-S 1 TABLET PO ×2 (08:55→19:02)
[2025-02-03] MEDS: TOPROL XL PO (08:55)
[2025-02-03] MEDS: BACTROBAN 2% OINTMENT 1 APPLIC NASAL ×2 (08:55→19:02)
[2025-02-03] MEDS: LOW STRENGTH ASPIRIN 81 MG PO (08:55)
--- NOTE | 2025-02-03 10:45 | PTCARENOTE ---
pt ambulated into hallway w/ CR, placed back to bed. Med CTs dc'd as ordered.
--- NOTE | 2025-02-03 11:51 | CM ---
Chart reviewed. Patient's at bedside. Patient is independent of ADLS, lives with his in a 2 STH, 1 JOSELITO, 0 DME. Plan is for the patient to return home. CM to follow
--- NOTE | 2025-02-03 12:15 | PTCARENOTE ---
pt VS completed, PA aware of HR w/ V pacing. no c/o lightheadedness or dizziness. pt OOB to chair for lunch. at bedside. chest PT performed, +productive cough.
[2025-02-03 12:38] LABS: Glucose - Point of Care 152 mg/dl (70-99)
[2025-02-03] MEDS: NOVOLOG FLEXPEN-MODERATE RESISTANCE 1 UNITS SC ×2 (12:59→17:09)
--- NOTE | 2025-02-03 14:08 | PN.CDI ---
CDI
- -
CDI:
Physician Documentation Request
Admit Date: 01/28/25 20:22
Dear Doctor Katharina,
Please review the following and provide your response in the progress notes.
Clinical Indicators:
CT, PN, 02/03
#HFmrEF (LVEF 45-50% per intraop KATARINA)
Please provide further specificity regarding the most likely type and acuity of CHF evaluated, treated or monitored.
Acute HFmrEF
Acute on chronic HFmrEF
Other (please specify)
Type Acuity
Systolic Acute
Diastolic Chronic
Combined Systolic/Diastolic Acute on Chronic
Use of terms such as suspected, likely, concern for, or probable (associated with a specific diagnosis that is being evaluated, monitored, or treated as if it exists) are acceptable and can be coded in the inpatient setting, when documented at the
time of discharge.
Thank you,
Bernadette Martinez RN BSN CCDS
CDI Specialist
Please contact via tiger text
Please use your independent medical judgment in providing your response.
--- NOTE | 2025-02-03 14:10 | W.PN.CARDCBS ---
Addendum entered and electronically signed by Ric Umana MD 02/03/25 15:21:
I saw and examined the patient.
The FLOORWALKER or PA's note was reviewed and I agree with the note.
Comment: General: Well developed, well nourished in NAD.
Neck: Supple, no JVD, HJR, carotids +2 B/L, no bruits bilaterally.
Heart: Non displaced PMI, RRR, no murmurs, No S3, S4, no rubs.
Lungs: Scattered rhonchi
Sternal dressings noted
Extremities: No clubbing, cyanosis or edema bilaterally.
Neuro: Grossly nonfocal, awake, alert and oriented x3.
Telemetry with episodes of Wenkebach. Continue to follow for now. Discussed with CT surgery.
Original Note:
Today's Communication / Plan
-
Continue postop care
follow rhythm
follow plts
Impression / Plan
-
PCP: Dr. Racheal Gomez at [facility]
Card: None, first seen this admit by Dr Blancas
Impression:
s/p radical MV repair with [place]-Be cords and 40 mm band, CABG x1 with MICHAEL to LAD, LA MAZE with RF and cryo and BENJAMIN exclusion 02/01/25
Admission with chest pain and elevated Troponin 01/28/25
Elevated Troponin concerning for NSTEMI
CAD with 95% LAD stenosis cath 01/29/2025
severe MR-new diagnosis 01/29/25
Hyperlipidemia
FH premature CAD
Murmur of MR
Thrombocytopenia
Postop A-fib
Echo 01/29/25: Dilated LV, EF 51%, severe eccentric MR and severely dilated LA, mild bileaflet mitral valve prolapse, trace AI, top normal RV size, preserved RV systolic function
Right and left heart cath 01/29/2025: RA 6, PA 31/13, PCWP 15, V waves to 29, CO/CI 4.1/1.9. LAD: Ulcerated high-grade LAD stenosis 95%, circumflex: Medium caliber nondominant vessel supplying 2 small OM branches. RCA large caliber widely patent
with minor irregularities. PDA and posterolateral branch is large. Dilated global hypokinetic LVEF 40%, and 4+ MR.
Plan:
- Patient admitted with chest pain and elevated troponin on 01/28/2025 and found to have new severe MR by echo and LAD disease by cath both on 01/29/2025. Patient was seen by the CT surgery team and recommended CABG and MV repair which was performed
on 02/01/2025.
-He had intraoperative A-fib, and converted to sinus while in OR on Amio gtt. he had full left atrial maze with radiofrequency and cryoablation as well as BENJAMIN exclusion confirmed by KATARINA at end of case.
- He remains with occasional need for pacing on review of telemetry. Also with occasional episodes of Wenckebach. Holding beta-nabil and amiodarone. set to VVI 40.
- Continue aspirin. Platelets 92K. HIT antibody was negative. Hematology following
- LDL 90 earlier in admission. Continue Crestor
- Repeat echo 02/05
- Ambulate, out of bed/IS encouraged
- Discussed with nursing. Discussed with patient and at bedside
HPI: Patient came to [facility] ER yesterday with chest pain and was admitted with possible ACS and cardiology has been consulted. Patient reports intermittent SALCEDO over the last several months, but sometimes he can complete physical activity without any
symptoms and other times will have some SALCEDO chest pressure. He mows his lawn using a push mower weekly without any symptoms. 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
event and while walking he had pressure throughout his precordium and then when he reached his destination he was overwhelmingly fatigued and flopped down in his chair. A bystander thought he looked unwell and offered him Gatorade. Patient says
that the pain improved within 10 minutes of sitting down, but did not completely resolve and was still present close to an hour later when he and his were leaving the event. Patient went to urgent care and then was referred to the ER where his
initial troponin was 0.037 and then peaked at 0.065. Patient denies any previous cardiac testing. He was started on Crestor for hyperlipidemia about 6 months ago. His father had an OK and at age 54.
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
Subjective
Date of Service: February 03, 2025
Reports some discomfort and shortness of breath with ambulation, improved with resting
Objective
Labs:
02/03/25 04:25
02/03/25 04:25
Labs
Hgb 10.3 g/dL (13.0-18.0) L 02/03/25 04:25
Hct 31.3 % (39.0-52.0) L 02/03/25 04:25
Plt Count 92 10^3/uL (130-400) L 02/03/25 04:25
PT 18.4 Sec (11.4-14.6) H 02/01/25 12:19
INR 1.50 02/01/25 12:19
APTT 29.8 Sec (23.4-35.0) 02/01/25 12:19
Sodium 136 mmol/L (135-145) 02/03/25 04:25
Potassium 4.8 mmol/L (3.5-5.1) 02/03/25 04:25
BUN 31 mg/dl (9-20) H 02/03/25 04:25
Creatinine 0.9 mg/dL (0.7-1.3) 02/03/25 04:25
Glucose 128 mg/dl (70-99) H 02/03/25 04:25
Vital Signs and I&O:
Vital Signs
Temp Pulse Resp BP Pulse Ox
98.4 F 66 18 111/62 93
02/03/25 11:55 02/03/25 13:30 02/03/25 11:55 02/03/25 13:24 02/03/25 11:55
Vital Signs
Temp Pulse Resp BP Pulse Ox
98.4 F 66 18 111/62 93
02/03/25 11:55 02/03/25 13:30 02/03/25 11:55 02/03/25 13:24 02/03/25 11:55
Intake & Output
02/01/25 02/02/25 02/03/25 02/04/25
07:59 07:59 07:59 07:59
Intake Total 480 / 480 3385.0 / 3426.2 481.9 / 481.9 60 / 60
Output Total 1939 / 1994 1020 / 1020 335 / 335
Balance 480 / 480 1445.0 / 1431.2 -538.1 / -538.1 -275 / -275
Physical Exam
Physical Exam
GEN: No distress, awake, alert, oriented x3. Sitting in chair
HEENT: supple, anicteric, mmm, EOMI
LUNGS: CTA bilaterally, no wheezes/rales
CV: Reg, S1/S2, no murmur
ABD: soft, BS+, NT/ND
EXT: No cyanosis, clubbing, edema
NEURO: Gross non-focal
SKIN: Warm, pink, dry. No rash. Sternotomy incision clean dry and intact
--- NOTE | 2025-02-03 14:12 | PN.CDI ---
CDI
- -
CDI:
Physician Documentation Request
Admit Date: 01/28/25 20:22
Dear Doctor Katharina,
Please review the following and provide your response in the progress notes.
Current documentation includes a diagnosis of shock.
Clinical Indicators:
Cardiology, PN, 02/02
#Remains on Levophed and dopamine.
CT PN, 02/02
#Gtt's: Amio 0.5, Dobutamine 1, Levophed 2
#Acute blood loss anemia
#-Acute shock, circulatory
CT PN, 02/03
#Acute blood loss anemia
#Acute shock, circulatory
#Acute postop hypovolemia with subsequent hypervolemia
Please clarify which of the following is the most likely etiology of the above symptoms and treatment rendered:
Cardiogenic shock
Hypovolemic shock - indicate if due to surgery, trauma or other etiology
Hemorrhagic shock - indicate if due to surgery, trauma or other etiology
Postoperative shock, type unknown
Other (please specify)
Use of terms such as suspected, likely, concern for, or probable (associated with a specific diagnosis that is being evaluated, monitored, or treated as if it exists) are acceptable and can be coded in the inpatient setting, when documented at the
time of discharge.
Thank you,
Bernadette Martinez RN BSN CCDS
CDI Specialist
Please contact via tiger text
Please use your independent medical judgment in providing your response.
--- NOTE | 2025-02-03 15:49 | PTCARENOTE ---
pt VSS, no changes in assessment. IS encouraged. OOB in chair.
--- NOTE | 2025-02-03 16:04 | PTCARENOTE ---
Handoff report received from Marlene GUADALUPE. Patient OOB in chair. Aox4, SB/NSR 50s-60s with occassional V pacing, RA satting mid 90s, lungs diminished. Pt does not c/o pain at this time. 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 Wires connected
to pacer box. Pacer box on VVI 40//2, however A wire not sensing appropriately, CT PA is aware. Ax1 to ambulate in johnson. Voids in urinal. All needs met at this time, call reagan within reach.
[2025-02-03 16:47] LABS: Glucose - Point of Care 154 mg/dl (70-99)
--- NOTE | 2025-02-03 18:57 | PTCARENOTE ---
Patient OOB in chair. Ambulated before dinner about 50 feet, tolerated well. Pt denies pain at this time. R IJ cordis to KVO. Wires remain hooked to pacer box VVI . SB/NSR 50s-60s 1st degree AVB with about 25% V pacing. All needs met at this
time, call reagan within reach. handoff repoert given to nightshift RN.
--- NOTE | 2025-02-03 19:00 | PTCARENOTE ---
report received from previous RN, walking rounds done. pt AAOx4, OOB in chair. SB w 1st degree AVB on the monitor, occasional V pacing. A&V wires in place, VVI 40/10. SBP 100s. B/L radial and DP palpable pulses. POX 97% on 2LNC, B/L breath sounds
present. productive cough noted. IS 1000. bowel sounds present. voids in urinal. surgical sites stable. RIJ cordis intact w KVO infusing. PIV intact and patent. see worklist for VS, I&O, and assessment.
[2025-02-03] MEDS: FLEXERIL 5 MG PO (20:30)
[2025-02-04] VITALS (9 sets, daily range): BP systolic 103–142; BP diastolic 54–84; PULSE 74; O2SAT 92–96; BMI 26.3
[2025-02-04 05:42] LABS: Hematocrit 28.3 % (39.0-52.0); Hemoglobin 9.4 g/dL (13.0-18.0); Mean Corp Hgb Conc. 33.2 g/dL (33.0-37.0); Mean Corpuscular Volume 89.6 fL (80.0-94.0); Platelet Count 83 10^3/uL (130-400); Red Cell Dist. Width 14.4 % (11.5-14.5)
[2025-02-04] MEDS: FLEXERIL 5 MG PO (05:46)
[2025-02-04] MEDS: TYLENOL 1000 MG PO ×3 (05:46→22:50)
[2025-02-04 06:14] LABS: Blood Urea Nitrogen 28 mg/dl (9-20); Calcium 8.2 mg/dl (8.4-10.2); Carbon Dioxide 28 mmol/L (22-30); Chloride 106 mmol/L (98-107); Estimated Creatinine Clearance 117 ml/min; Glucose 108 mg/dl (70-99); Magnesium 2.2 mg/dl (1.6-2.3); Potassium 4.0 mmol/L (3.5-5.1); Sodium 134 mmol/L (135-145); eGFR > 60.00
--- NOTE | 2025-02-04 08:00 | PTCARENOTE ---
pt received from previous RN, oriented, OOB in chair. SB w/ 1st degree AVB on the monitor, occasional V pacing. A&V wires in place, VVI 40/10. SBP 100s. palpable pulses. pt on RA, 94% POX. lungs diminished. productive cough. pt abdomen s/n, denies
n/v. diet tolerated. voids in urinal. 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 chest tube site intact. RIJ cordis maintained. PIV. see worklist for VS, I&O, and assessment.
--- NOTE | 2025-02-04 08:26 | W.PN.CT ---
Documented by User: Jarrett Mcleod PA-C 02/04/25 08:33
Today's Communication / Plan
-
-pod #3
-no significant issues overnight. Hemodynamically and neurologically intact, sitting in a chair
-holding BB and Amio for occasional bradycardia with v-paced beats (epicardial pw @ VVI 40 backup). ? Kelly 1 - will need to review with Cardiology
-maintain pw
-follow platelets - 83K today (92 K on 02/03)
-weaned off O2 - pOx 96% on RA
-encourage IS, OOB
Assessment / Plan
-
NSTEMI and severe mitral valve insufficiency with heart failure s/p CABG x1 (MICHAEL to LAD), Radical mitral valve repair [triangular resection of P2 and P3 at the cleft, primary reapproximation of P2/3, 4 sets of [place]-Be cords placed to the posterior
leaflet, anterolateral commissuroplasty, 40 mm band annuloplasty], Full left atrial maze [RF and cryoablation] and left atrial appendage exclusion [45 mm clip], PFO closure on 02/01/[address] Posadas POD #3
KATARINA 02/01/25: LVEF 45-50%, dilated LV, no RWMA, severe mitral regurgitation from annulus dilation and torn chordae, small L->R PFO
Proximal LAD disease 95% stenosis
Severe MR
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
Thrombocytopenia
Myxomatous mitral valve disease
Hx daily EtOH use
hx HTN
Hx HLD
Hx tobacco abuse
Acute intraop Afib
Acute postop bradycardia, Amiodarone gtt d/c'd. Toprol and po Amio are held
Acute postop blood loss anemia
Acute postop thrombocytopenia on chronic thrombocytopenia (transfuse 2 {5pks} plts)
Acute shock, circulatory
Acute coagulopathy
Acute postop hypovolemia with subsequent hypervolemia
Discussed patient care with: Nursing and Care Team
Subjective
-
Date of Service: February 04, 2025
Objective Data
-
Lab Results
02/04/25 05:28
02/04/25 05:28
PT 18.4 Sec (11.4-14.6) H 02/01/25 12:19
INR 1.50 02/01/25 12:19
APTT 29.8 Sec (23.4-35.0) 02/01/25 12:19
Vital Signs
Vital Signs
Temp Pulse Resp BP Pulse Ox
98.2 F 69 18 103/67 94
02/03/25 22:57 02/04/25 08:00 02/04/25 08:00 02/04/25 07:41 02/04/25 08:00
CT Intake/Output/Weight
02/03/25 02/04/25 02/04/25
18:59 06:59 18:59
Intake Total 70 / 240 170 / 240
Output Total 550 / 1150 600 / 1150
Balance -480 / -910 -430 / -910
SaO2: 94
Physical Exam
-
General: Awake and AOx3
Cardiovascular: Regular rate & rhythm, No Murmurs and No Rub
Respiratory: Clear and Decreased Breath Sounds
Sternum: Stable
Incision: Clean, Dry and Intact
Abdome: mildly distended, nontender, no nausea, + flatus, increased bowel sounds
Data Reviewed
-
Lab Results: Results Reviewed
Medications: Active Meds Reviewed
Chest X-Ray: Report Reviewed and Image Reviewed
ECG: Report Reviewed and Image Reviewed

Documented by User: RANULFO Waggoner 02/05/25 12:23
Assessment / Plan
-
NSTEMI and severe mitral valve insufficiency with heart failure s/p CABG x1 (MICHAEL to LAD), Radical mitral valve repair [triangular resection of P2 and P3 at the cleft, primary reapproximation of P2/3, 4 sets of [place]-Be cords placed to the posterior
leaflet, anterolateral commissuroplasty, 40 mm band annuloplasty], Full left atrial maze [RF and cryoablation] and left atrial appendage exclusion [45 mm clip], PFO closure on 02/01/[address] Posadas POD #3
KATARINA 02/01/25: LVEF 45-50%, dilated LV, no RWMA, severe mitral regurgitation from annulus dilation and torn chordae, small L->R PFO
Proximal LAD disease 95% stenosis
Severe MR
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
Thrombocytopenia
Myxomatous mitral valve disease
Hx daily EtOH use
hx HTN
Hx HLD
Hx tobacco abuse
Acute intraop Afib
Acute postop bradycardia, Amiodarone gtt d/c'd. Toprol and po Amio are held
Acute postop blood loss anemia
Acute postop thrombocytopenia on chronic thrombocytopenia (transfuse 2 {5pks} plts)
Acute coagulopathy
Acute postop hypovolemia with subsequent hypervolemia
Acute Cardiogenic shock on Dobutamine
[2025-02-04 08:29] LABS: Glucose - Point of Care 121 mg/dl (70-99)
[2025-02-04] MEDS: NOVOLOG FLEXPEN-MODERATE RESISTANCE SC ×3 (08:34→18:14)
[2025-02-04] MEDS: CRESTOR 10 MG PO (09:09)
[2025-02-04] MEDS: ROXICODONE 2.5 MG PO ×2 (09:09→15:53)
[2025-02-04] MEDS: BACTROBAN 2% OINTMENT 1 APPLIC NASAL ×2 (09:09→19:54)
[2025-02-04] MEDS: PROTONIX 40 MG PO (09:09)
[2025-02-04] MEDS: SENOKOT-S 1 TABLET PO ×2 (09:09→19:54)
[2025-02-04] MEDS: LASIX 40 MG IV (09:10)
[2025-02-04] MEDS: NEURONTIN 100 MG PO ×3 (09:10→22:50)
[2025-02-04] MEDS: LOW STRENGTH ASPIRIN 81 MG PO (09:10)
[2025-02-04] MEDS: NSS IV (10:30)
--- NOTE | 2025-02-04 12:00 | PTCARENOTE ---
pt VSS, no changes in assessment. ambulates in hallway w/ stand by assist. IS encouraged. IVP lasix given as ordered, voiding in urinal.
[2025-02-04 12:53] LABS: Glucose - Point of Care 106 mg/dl (70-99)
--- NOTE | 2025-02-04 12:59 | CM ---
Chart reviewed. Patient is OOB sitting in the chair, at bedside. Patient is independent of ADLS, lives with his in a 2 [address], 1 [address], 0 DME. Plan is for the patient to return home with CT Transitional RN. CM to follow
--- NOTE | 2025-02-04 13:54 | W.PN.CARDCBS ---
Addendum entered and electronically signed by Curly Denis MD 02/04/25 18:05:
I saw and examined the patient.
The Cancer Genetics Assistant's note was reviewed and I agree with the note.
Comment:
GEN: No distress, awake, Ox3
HEENT: supple, anicteric, mmm
LUNGS: CTA, no wheezes/rales
CV: Reg, S1/S2, no murmur
ABD: soft, BS+, NT/ND
EXT: No edema
NEURO: Gross non-focal
SKIN: No rash
Plan:
Overall doing well. Remains in sinus rhythm but is having some secondary heart block at times. Continue to hold amiodarone and Toprol.
Continues to have thrombocytopenia and platelet count at 83,000. Continue to follow. Hemoglobin at 9.4. HIT negative.
Check echo in AM. Continue to follow on telemetry.
Original Note:
Today's Communication / Plan
-
Continue postoperative care
Follow rhythm
Echo in a.m.
Impression / Plan
-
PCP: Dr. Racheal Gomez at [facility]
Card: None, first seen this admit by Dr Blancas
Impression:
s/p radical MV repair with [place]-Be cords and 40 mm band, CABG x1 with MICHAEL to LAD, LA MAZE with RF and cryo and BENJAMIN exclusion 02/01/25
Admission with chest pain and elevated Troponin 01/28/25
Elevated Troponin concerning for NSTEMI
CAD with 95% LAD stenosis cath 01/29/2025
severe MR-new diagnosis 01/29/25
Hyperlipidemia
FH premature CAD
Murmur of MR
Thrombocytopenia
Postop A-fib
Echo 01/29/25: Dilated LV, EF 51%, severe eccentric MR and severely dilated LA, mild bileaflet mitral valve prolapse, trace AI, top normal RV size, preserved RV systolic function
Right and left heart cath 01/29/2025: RA 6, PA 31/13, PCWP 15, V waves to 29, CO/CI 4.1/1.9. LAD: Ulcerated high-grade LAD stenosis 95%, circumflex: Medium caliber nondominant vessel supplying 2 small OM branches. RCA large caliber widely patent
with minor irregularities. PDA and posterolateral branch is large. Dilated global hypokinetic LVEF 40%, and 4+ MR.
Plan:
- Patient admitted with chest pain and elevated troponin on 01/28/2025 and found to have new severe MR by echo and LAD disease by cath both on 01/29/2025. Patient was seen by the CT surgery team and recommended CABG and MV repair which was performed
on 02/01/2025.
- He had intraoperative A-fib, and converted to sinus while in OR on Amio gtt. he had full left atrial maze with radiofrequency and cryoablation as well as BENJAMIN exclusion confirmed by KATARINA at end of case.
- He remains in SR with occasional need for pacing on review of telemetry. Less wenckebach noted overnight. Holding beta-nabil and amiodarone. set to VVI 40.
- Continue aspirin. Platelets 83K. HIT antibody was negative. Hematology following
- agree with diuresis
- LDL 90 earlier in admission. Continue Crestor
- Repeat echo 02/05
- Ambulate, IS
- Discussed with nursing.
HPI: Patient came to [facility] ER yesterday with chest pain and was admitted with possible ACS and cardiology has been consulted. Patient reports intermittent SALCEDO over the last several months, but sometimes he can complete physical activity without any
symptoms and other times will have some SALCEDO chest pressure. He mows his lawn using a push mower weekly without any symptoms. 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
event and while walking he had pressure throughout his precordium and then when he reached his destination he was overwhelmingly fatigued and flopped down in his chair. A bystander thought he looked unwell and offered him Gatorade. Patient says
that the pain improved within 10 minutes of sitting down, but did not completely resolve and was still present close to an hour later when he and his were leaving the event. Patient went to urgent care and then was referred to the ER where his
initial troponin was 0.037 and then peaked at 0.065. Patient denies any previous cardiac testing. He was started on Crestor for hyperlipidemia about 6 months ago. His father had an AL and at age 54.
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
Subjective
Date of Service: February 04, 2025
Reports somewhat weak with ambulation
Objective
Labs:
02/04/25 05:28
02/04/25 05:28
Labs
Hgb 9.4 g/dL (13.0-18.0) L 02/04/25 05:28
Hct 28.3 % (39.0-52.0) L 02/04/25 05:28
Plt Count 83 10^3/uL (130-400) L 02/04/25 05:28
PT 18.4 Sec (11.4-14.6) H 02/01/25 12:19
INR 1.50 02/01/25 12:19
APTT 29.8 Sec (23.4-35.0) 02/01/25 12:19
Sodium 134 mmol/L (135-145) L 02/04/25 05:28
Potassium 4.0 mmol/L (3.5-5.1) 02/04/25 05:28
BUN 28 mg/dl (9-20) H 02/04/25 05:28
Creatinine 0.7 mg/dL (0.7-1.3) 02/04/25 05:28
Glucose 108 mg/dl (70-99) H 02/04/25 05:28
Vital Signs and I&O:
Vital Signs
Temp Pulse Resp BP Pulse Ox
98.2 F 66 18 108/73 94
02/03/25 22:57 02/04/25 12:00 02/04/25 08:00 02/04/25 11:05 02/04/25 11:51
Vital Signs
Temp Pulse Resp BP Pulse Ox
98.2 F 66 18 108/73 94
02/03/25 22:57 02/04/25 12:00 02/04/25 08:00 02/04/25 11:05 02/04/25 11:51
Intake & Output
02/02/25 02/03/25 02/04/25 02/05/25
07:59 07:59 07:59 07:59
Intake Total 3385.0 / 3426.2 481.9 / 481.9 230 / 240
Output Total 1939 / 1994 1020 / 1020 1110 / 1110 1650 / 1650
Balance 1445.0 / 1431.2 -538.1 / -538.1 -880 / -870 -1630 / -1630
Physical Exam
Physical Exam
GEN: No distress, awake, alert, oriented x3.
HEENT: supple, anicteric, mmm, EOMI
LUNGS: CTA bilaterally, no wheezes/rales
CV: Reg, S1/S2, no murmur
ABD: soft, BS+, NT/ND
EXT: No cyanosis, clubbing, edema
NEURO: Gross non-focal
SKIN: Warm, pink, dry. No rash. Sternotomy incision clean dry and intact
--- NOTE | 2025-02-04 14:38 | PTCARENOTE ---
pt placed back to bed, VALERIA Nielson dc'd as ordered, dressing c/d/i. resting between care, at bedside.
--- NOTE | 2025-02-04 16:00 | PTCARENOTE ---
pt VSS, OOB to chair for dinner. voids in urinal. pt c/o pain, received PRN Roxicodone 2.5mg PO.
[2025-02-04 18:13] LABS: Glucose - Point of Care 123 mg/dl (70-99)
--- NOTE | 2025-02-04 19:00 | PTCARENOTE ---
report received from previous RN, walking rounds done. pt AAOx4, OOB in chair. VSS. NSR on monitor, HR 70s. A&V wires in place set to back up VVI 40/10. POX 97% on room air. bowel sounds present, voids in urinal. surgical sites stable. PIV intact
and patent. see worklist for full assessment, VS, and interventions.
[2025-02-04] MEDS: ROXICODONE 5 MG PO (19:54)
[2025-02-05] VITALS (9 sets, daily range): BP systolic 101–125; BP diastolic 64–84; PULSE 85; O2SAT 93–94; BMI 26.0
--- NOTE | 2025-02-05 04:45 | PTCARENOTE ---
no acute changes. SR w PVCs, HR 70s. no pacing spike noted overnight. POX 100% on room air. AM labs drawn and sent. pt sleeping between care.
[2025-02-05 04:57] LABS: Hematocrit 30.5 % (39.0-52.0); Hemoglobin 10.2 g/dL (13.0-18.0); Mean Corp Hgb Conc. 33.4 g/dL (33.0-37.0); Mean Corpuscular Volume 90.0 fL (80.0-94.0); Platelet Count 108 10^3/uL (130-400); Red Cell Dist. Width 14.2 % (11.5-14.5)
[2025-02-05 05:45] LABS: Blood Urea Nitrogen 29 mg/dl (9-20); Calcium 8.9 mg/dl (8.4-10.2); Carbon Dioxide 30 mmol/L (22-30); Chloride 102 mmol/L (98-107); Estimated Creatinine Clearance 102 ml/min; Glucose 103 mg/dl (70-99); Magnesium 2.3 mg/dl (1.6-2.3); Potassium 4.1 mmol/L (3.5-5.1); Sodium 134 mmol/L (135-145); eGFR > 60.00
[2025-02-05] MEDS: TYLENOL 1000 MG PO ×3 (06:18→21:03)
--- NOTE | 2025-02-05 07:40 | W.PN.CT ---
Today's Communication / Plan
-
-pod #4
-no significant issues overnight, walked several times in the hallways
-rhythm is improving. No significant bradycardia or pauses overnight. NSR with non-conducted PACs noted, occasional PVCs.
-pw @ VVI 30 (no pacing overnight). Holding BB and Amio
-wt is up 7 lbs from preop - consider diuresis
-IS upto 1999, weaned off O2
-Echo today
-encourage IS, ambulate
Assessment / Plan
-
NSTEMI and severe mitral valve insufficiency with heart failure s/p CABG x1 (MICHAEL to LAD), Radical mitral valve repair [triangular resection of P2 and P3 at the cleft, primary reapproximation of P2/3, 4 sets of [place]-Be cords placed to the posterior
leaflet, anterolateral commissuroplasty, 40 mm band annuloplasty], Full left atrial maze [RF and cryoablation] and left atrial appendage exclusion [45 mm clip], PFO closure on 02/01/[address] Posadas POD #4
KATARINA 02/01/25: LVEF 45-50%, dilated LV, no RWMA, severe mitral regurgitation from annulus dilation and torn chordae, small L->R PFO
Proximal LAD disease 95% stenosis
Severe MR
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
Thrombocytopenia
Myxomatous mitral valve disease
Hx daily EtOH use
hx HTN
Hx HLD
Hx tobacco abuse
Acute intraop Afib
Acute postop bradycardia, Amiodarone gtt d/c'd. Toprol and po Amio are held
Acute postop blood loss anemia
Acute postop thrombocytopenia on chronic thrombocytopenia (transfuse 2 {5pks} plts)
Acute coagulopathy
Acute postop hypovolemia with subsequent hypervolemia
Acute Cardiogenic shock on Dobutamine
Discussed patient care with: Nursing and Care Team
Subjective
-
Date of Service: February 05, 2025
Objective Data
-
Lab Results
02/05/25 04:44
02/05/25 04:44
PT 18.4 Sec (11.4-14.6) H 02/01/25 12:19
INR 1.50 02/01/25 12:19
APTT 29.8 Sec (23.4-35.0) 02/01/25 12:19
Vital Signs
Vital Signs
Temp Pulse Resp BP Pulse Ox
97.9 F 76 17 125/66 100
02/05/25 04:38 02/05/25 04:38 02/05/25 04:38 02/05/25 04:38 02/05/25 04:38
CT Intake/Output/Weight
02/04/25 02/05/25 02/05/25
18:59 06:59 18:59
Intake Total 20 / 170 150 / 170
Output Total 1950 / 2600 650 / 2600
Balance -1930 / -2430 -500 / -2430
SaO2: 100
Physical Exam
-
General: Awake and AOx3
Cardiovascular: Regular rate & rhythm, No Murmurs and No Rub
Respiratory: Clear and Decreased Breath Sounds
Sternum: Stable
Incision: Clean, Dry and Intact
Extremities: Edema +2
Abdomen: soft, nontender, nondistended, + bowel sounds
Data Reviewed
-
Lab Results: Results Reviewed
Medications: Active Meds Reviewed
Chest X-Ray: Report Reviewed and Image Reviewed
ECG: Report Reviewed and Image Reviewed
[2025-02-05] MEDS: SENOKOT-S 1 TABLET PO ×2 (09:15→21:03)
[2025-02-05] MEDS: NEURONTIN 100 MG PO ×3 (09:15→21:03)
[2025-02-05] MEDS: BACTROBAN 2% OINTMENT 1 APPLIC NASAL (09:16)
[2025-02-05] MEDS: NSS IV (09:16)
[2025-02-05] MEDS: CRESTOR 10 MG PO (09:16)
[2025-02-05] MEDS: LOW STRENGTH ASPIRIN 81 MG PO (09:16)
[2025-02-05] MEDS: PROTONIX 40 MG PO (09:16)
--- NOTE | 2025-02-05 09:22 | W.PN.CARDCBS ---
Addendum entered and electronically signed by Ric Umana MD 02/05/25 11:23:
I saw and examined the patient.
The LIDDER or PA's note was reviewed and I agree with the note.
Comment: General: Well developed, well nourished in NAD.
Neck: Supple, no JVD, HJR, carotids +2 B/L, no bruits bilaterally.
Heart: Non displaced PMI, RRR, no murmurs, No S3, S4, no rubs.
Lungs: Scattered rhonchi
Sternal dressings noted
Extremities: No clubbing, cyanosis or edema bilaterally.
Neuro: Grossly nonfocal, awake, alert and oriented x3.
Continue to diurese. Remains in sinus rhythm. No further Wenkebach. Check echocardiogram. Hold off on beta-blockers for now. Discussed with CT surgery PA's.
Original Note:
Today's Communication / Plan
-
echo pending
diurese
OOB/IS
follow rhythm
Impression / Plan
-
PCP: Dr. Rachael Gomez at [facility]
Card: None, first seen this admit by Dr Blancas
Impression:
s/p radical MV repair with [place]-Be cords and 40 mm band, CABG x1 with MICHAEL to LAD, LA MAZE with RF and cryo and BENJAMIN exclusion 02/01/25
Admission with chest pain and elevated Troponin 01/28/25
Elevated Troponin concerning for NSTEMI
CAD with 95% LAD stenosis cath 01/29/2025
severe MR-new diagnosis 01/29/25
Hyperlipidemia
FH premature CAD
Murmur of MR
Thrombocytopenia
Postop A-fib
Echo 01/29/25: Dilated LV, EF 51%, severe eccentric MR and severely dilated LA, mild bileaflet mitral valve prolapse, trace AI, top normal RV size, preserved RV systolic function
Right and left heart cath 01/29/2025: RA 6, PA , PCWP 15, V waves to 29, CO/CI 4.1/1.9. LAD: Ulcerated high-grade LAD stenosis 95%, circumflex: Medium caliber nondominant vessel supplying 2 small OM branches. RCA large caliber widely patent
with minor irregularities. PDA and posterolateral branch is large. Dilated global hypokinetic LVEF 40%, and 4+ MR.
Plan:
- Patient admitted with chest pain and elevated troponin on 01/28/2025 and found to have new severe MR by echo and LAD disease by cath both on 01/29/2025. Patient was seen by the CT surgery team and recommended CABG and MV repair which was performed
on 02/01/2025.
- He had intraoperative A-fib, and converted to sinus while in OR on Amio gtt. he had full left atrial maze with radiofrequency and cryoablation as well as BENJAMIN exclusion confirmed by KATARINA at end of case.
- He remains in SR, no pacing required overnight. Holding beta-nabil and amiodarone. remains with pw set to [id number].
- Continue aspirin. hgb 10.2, plts 108K. HIT antibody was negative. Hematology following
- agree with continued IV diuresis. d/w CT surgery LIDDER
- LDL 90 earlier in admission. Continue Crestor
- Repeat echo pending
- Ambulate, IS
- Discussed with nursing.
HPI: Patient came to [facility] ER yesterday with chest pain and was admitted with possible ACS and cardiology has been consulted. Patient reports intermittent SALCEDO over the last several months, but sometimes he can complete physical activity without any
symptoms and other times will have some SALCEDO chest pressure. He mows his lawn using a push mower weekly without any symptoms. 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
event and while walking he had pressure throughout his precordium and then when he reached his destination he was overwhelmingly fatigued and flopped down in his chair. A bystander thought he looked unwell and offered him Gatorade. Patient says
that the pain improved within 10 minutes of sitting down, but did not completely resolve and was still present close to an hour later when he and his were leaving the event. Patient went to urgent care and then was referred to the ER where his
initial troponin was 0.037 and then peaked at 0.065. Patient denies any previous cardiac testing. He was started on Crestor for hyperlipidemia about 6 months ago. His father had an CT and at age 54.
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
Subjective
Date of Service: February 05, 2025
Resting comfortably
Objective
Labs:
02/05/25 04:44
02/05/25 04:44
Labs
Hgb 10.2 g/dL (13.0-18.0) L 02/05/25 04:44
Hct 30.5 % (39.0-52.0) L 02/05/25 04:44
Plt Count 108 10^3/uL (130-400) L D 02/05/25 04:44
PT 18.4 Sec (11.4-14.6) H 02/01/25 12:19
INR 1.50 02/01/25 12:19
APTT 29.8 Sec (23.4-35.0) 02/01/25 12:19
Sodium 134 mmol/L (135-145) L 02/05/25 04:44
Potassium 4.1 mmol/L (3.5-5.1) 02/05/25 04:44
BUN 29 mg/dl (9-20) H 02/05/25 04:44
Creatinine 0.8 mg/dL (0.7-1.3) 02/05/25 04:44
Glucose 103 mg/dl (70-99) H 02/05/25 04:44
Vital Signs and I&O:
Vital Signs
Temp Pulse Resp BP Pulse Ox
98.2 F 66 18 125/66 98
02/05/25 08:00 02/05/25 09:00 02/05/25 08:00 02/05/25 04:38 02/05/25 08:00
Vital Signs
Temp Pulse Resp BP Pulse Ox
98.2 F 66 18 125/66 98
02/05/25 08:00 02/05/25 09:00 02/05/25 08:00 02/05/25 04:38 02/05/25 08:00
Intake & Output
02/03/25 02/04/25 02/05/25 02/06/25
07:59 07:59 07:59 07:59
Intake Total 481.9 / 481.9 230 / 240 170 / 170
Output Total 1020 / 1020 1110 / 1110 2600 / 2600
Balance -538.1 / -538.1 -880 / -870 -2430 / -2430
Physical Exam
Physical Exam
GEN: No distress, awake, alert, oriented x3.
HEENT: supple, anicteric, mmm, EOMI
LUNGS: CTA bilaterally, no wheezes/rales
CV: Reg, S1/S2, no murmur
ABD: soft, BS+, NT/ND
EXT: No cyanosis, clubbing. 1+ edema of B/L LE
NEURO: Gross non-focal
SKIN: Warm, pink, dry. No rash. Sternotomy incision clean dry and intact
[2025-02-05] MEDS: LASIX 40 MG IV (09:50)
--- NOTE | 2025-02-05 11:21 | CM ---
Chart reviewed. Patient OOB ambulating the johnson with and cardiac rehab. Patient is independent of ADLS, lives with his in a 2 STH, 1 JOSELITO, 0 DME. Plan is for the patient to return home with CT Transitional RN. CM to follow
--- NOTE | 2025-02-05 12:20 | W.PN.UPDATE ---
Update Note
Progress Note Update
No pacing required overnight. 2 atrial and 1 ventricular temporary pacing wire were clipped at skin level.
--- NOTE | 2025-02-05 15:58 | PTCARENOTE ---
epicardial wires cut. stairs done with patient. 2 view xray done. hopeful d/c tomorrow.
--- NOTE | 2025-02-05 20:45 | PTCARENOTE ---
Patient received from RN @ 1900. Patient sitting in chair comfortably w/ call reagan in reach. AOx3. NSR w/ first degree block and prolonged QT. BP 123/69 HR 76. Heart sounds audible. Radial pulses present to palpation bilaterally. Pedal pulses
present w/ Doppler. +2 edema noted bilateral lower extremity. POX 99% RA. Lungs clear bilaterally. Voiding clear yellow urine. Bowel sounds normoactive. No BM noted. Sternal incision well approximated TRANSITION MGR. CT dressing C/D/I. Left hand PIV
patent and intact.
--- NOTE | 2025-02-05 23:57 | PTCARENOTE ---
Patient reassessed. NSR BP 113/69 HR 74 POX 95% RA.
[2025-02-06] VITALS (8 sets, daily range): BP systolic 100–126; BP diastolic 64–90; PULSE 76; O2SAT 96–99; BMI 25.7
--- NOTE | 2025-02-06 00:16 | PTCARENOTE ---
Patient HR dropped to 37. Patient asymptomatic. CT AMANDA Farias notified.
--- NOTE | 2025-02-06 01:08 | PTCARENOTE ---
7 beat run of Accelerated idioventricular rhythm. Returned to NSR. CT AMANDA Farias notified.
--- NOTE | 2025-02-06 01:31 | W.PN.CT ---
Today's Communication / Plan
-
-pod #5
-pt had brief rhythm issues with 2:1 AV block and several AIVR episodes upto 17 beat longest during sleep, asymptomatic. Will review with Cardiology. Continue holding BB and Amio
-epicardial pws were cut 02/05
-K 3.3, Ca 6.8, Mg 1.7 this am - gave 2 g Ca gluconate, 40 po KCL and 500 Mg
-diuresed with 40 iv Lasix on 02/05 (UO 1425)
-pt is very motivated and walked multiple times in hallways last night 02/05 and did stairs. IS upto 2500
-Echo 02/05: EF 50%, Peak/mean gradients across the mitral valve are 6/2 mmHg.
-encourage IS, ambulate
Assessment / Plan
-
NSTEMI and severe mitral valve insufficiency with heart failure s/p CABG x1 (MICHAEL to LAD), Radical mitral valve repair [triangular resection of P2 and P3 at the cleft, primary reapproximation of P2/3, 4 sets of [place]-Be cords placed to the posterior
leaflet, anterolateral commissuroplasty, 40 mm band annuloplasty], Full left atrial maze [RF and cryoablation] and left atrial appendage exclusion [45 mm clip], PFO closure on 02/01/[address] Posadas POD #5
KATARINA 02/01/25: LVEF 45-50%, dilated LV, no RWMA, severe mitral regurgitation from annulus dilation and torn chordae, small L->R PFO
Proximal LAD disease 95% stenosis
Severe MR
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
Thrombocytopenia
Myxomatous mitral valve disease
Hx daily EtOH use
hx HTN
Hx HLD
Hx tobacco abuse
Acute intraop Afib - no recurrence postop. Continue ASA only per Dr. Posadas
Acute postop bradycardia, Amiodarone gtt d/c'd. Toprol and po Amio are held
Acute postop blood loss anemia
Acute postop thrombocytopenia on chronic thrombocytopenia (transfuse 2 {5pks} plts)
Acute coagulopathy
Acute postop hypovolemia with subsequent hypervolemia
Acute Cardiogenic shock on Dobutamine
Echo 02/05/25:
Left ventricle is dilated. Low normal left ventricular systolic function. Abnormal (paradoxical) septal and anteroseptal motion consistent with postoperative status. LV ejection fraction is 50% by visual assessment.
S/p mitral valve repair. Trace mitral regurgitation is seen. Peak/mean gradients across the mitral valve are 6/2 mmHg.
Since echo 01/29/2025 which was reviewed, patient is status post mitral valve repair with resolution of severe MR. There is anteroseptal and septal abnormal motion consistent with postoperative status.
Discussed patient care with: Nursing and Care Team
Subjective
-
Date of Service: February 06, 2025
Objective Data
-
Lab Results
02/05/25 04:44
02/05/25 04:44
PT 18.4 Sec (11.4-14.6) H 02/01/25 12:19
INR 1.50 02/01/25 12:19
APTT 29.8 Sec (23.4-35.0) 02/01/25 12:19
Vital Signs
Vital Signs
Temp Pulse Resp BP Pulse Ox
97.9 F 77 17 113/69 96
02/05/25 23:56 02/05/25 23:55 02/05/25 23:56 02/05/25 23:55 02/05/25 23:56
CT Intake/Output/Weight
02/05/25 02/05/25 02/06/25
06:59 18:59 06:59
Intake Total 150 / 170
Output Total 650 / 2600 1425 / 1725 300 / 1725
Balance -500 / -2430 -1425 / -1725 -300 / -1725
SaO2: 96
Physical Exam
-
General: Awake and AOx3
Cardiovascular: Regular rate & rhythm, No Murmurs and No Rub
Respiratory: Rales (at bases. No wheeze)
Sternum: Stable
Incision: Clean, Dry and Intact
Extremities: Edema +2 (leg edema b/l)
Abdomen: soft, nontender, nondistended + bowel sounds
Data Reviewed
-
Lab Results: Results Reviewed
Medications: Active Meds Reviewed
Chest X-Ray: Report Reviewed and Image Reviewed
ECG: Report Reviewed and Image Reviewed
--- NOTE | 2025-02-06 03:56 | PTCARENOTE ---
Patient reassessed. NSR w/ first degree block and prolonged QT. BP 109/65 HR 74 POX 94% RA.
[2025-02-06 04:06] LABS: Hematocrit 26.7 % (39.0-52.0); Hemoglobin 8.9 g/dL (13.0-18.0); Mean Corp Hgb Conc. 33.3 g/dL (33.0-37.0); Mean Corpuscular Volume 88.4 fL (80.0-94.0); Platelet Count 124 10^3/uL (130-400); Red Cell Dist. Width 14.0 % (11.5-14.5)
[2025-02-06 04:27] LABS: Blood Urea Nitrogen 22 mg/dl (9-20); Calcium 6.8 mg/dl (8.4-10.2); Carbon Dioxide 23 mmol/L (22-30); Chloride 111 mmol/L (98-107); Estimated Creatinine Clearance > 125 ml/min; Glucose 91 mg/dl (70-99); Magnesium 1.7 mg/dl (1.6-2.3); Potassium 3.3 mmol/L (3.5-5.1); Sodium 135 mmol/L (135-145); eGFR > 60.00
[2025-02-06] MEDS: ROXICODONE 2.5 MG PO ×3 (04:29→18:38)
[2025-02-06] MEDS: KCL 40 MEQ PO ×2 (04:57→11:11)
[2025-02-06] MEDS: MAGNESIUM OXIDE 500 MG PO ×2 (04:57→20:24)
[2025-02-06] MEDS: CALCIUM GLUCONATE 100 IV (05:12)
[2025-02-06] MEDS: TYLENOL 1000 MG PO ×2 (05:12→22:24)
[2025-02-06] MEDS: MILK OF MAGNESIA 30 ML PO (07:56)
[2025-02-06] MEDS: NEURONTIN 100 MG PO ×3 (07:56→22:24)
[2025-02-06] MEDS: LOW STRENGTH ASPIRIN 81 MG PO (07:56)
[2025-02-06] MEDS: CRESTOR 10 MG PO (07:56)
[2025-02-06] MEDS: SENOKOT-S 1 TABLET PO ×2 (07:56→20:24)
[2025-02-06] MEDS: PROTONIX 40 MG PO (07:56)
[2025-02-06] MEDS: NSS IV (07:56)
--- NOTE | 2025-02-06 08:00 | PTCARENOTE ---
Assumed care of patient from warehouse supervisor 3rd shift RN. AAO x 3, extremely flat affect this morning. Denies complaint. SR with first degree AVB and frequent PVC's on monitor. Room air 96 %. Is to 2000. Abdomen soft and round, hypoactive bowel sounds.
Passing flatus, unsure if he is uncomfortable since no BM yet. Laxative discussed. Voiding w/o issue. Plus 2 edema noted in lower extremities. Pulses palpable. Surgical sites c,d,i. Plan for am discussed.
[2025-02-06] MEDS: LASIX 40 MG IV (11:11)
--- NOTE | 2025-02-06 11:38 | W.PN.CARDCBS ---
Addendum entered and electronically signed by Curly Denis MD 02/06/25 13:02:
I saw and examined the patient.
The Straightening Press Operator's note was reviewed and I agree with the note.
Comment:
GEN: No distress, awake, Ox3
HEENT: supple, anicteric, mmm
LUNGS: CTA, no wheezes/rales
CV: Reg, S1/S2, no murmur
ABD: soft, BS+, NT/ND
EXT: No edema
NEURO: Gross non-focal
SKIN: No rash
Plan:
Telemetry was reviewed. He continues has episodes of heart block at night but then nonsustained VT/AVR during the day. Discussed case with electrophysiology plan will be to add low-dose Toprol and closely follow rhythm.
If rhythm remains stable overnight would discharge with cardiac monitoring. If rhythm progresses or worsens will need to consider pacemaker.
Echo reviewed and mitral valve repair looks excellent with a mean gradient of 2 and trace MR.
Hemoglobin is 8.9. Thrombocytopenia remained stable and platelet count up to 124,000.
Original Note:
Today's Communication / Plan
-
Add beta-nabil
Follow rhythm
If stable overnight, would plan for discharge with compliance monitor. If with evidence of high-grade AV block, will require pacemaker
Continue IV diuresis
echo with stable MV repair
Impression / Plan
-
PCP: Dr. Racheal Gomez at [facility]
Card: None, first seen this admit by Dr Blancas
Impression:
s/p radical MV repair with [place]-Be cords and 40 mm band, CABG x1 with MICHAEL to LAD, LA MAZE with RF and cryo and BENJAMIN exclusion 02/01/25
Admission with chest pain and elevated Troponin 01/28/25
Elevated Troponin concerning for NSTEMI
CAD with 95% LAD stenosis cath 01/29/2025
severe MR-new diagnosis 01/29/25
Hyperlipidemia
FH premature CAD
Murmur of MR
Thrombocytopenia
Postop A-fib
Echo 01/29/25: Dilated LV, EF 51%, severe eccentric MR and severely dilated LA, mild bileaflet mitral valve prolapse, trace AI, top normal RV size, preserved RV systolic function
Right and left heart cath 01/29/2025: RA 6, PA 31/13, PCWP 15, V waves to 29, CO/CI 4.1/1.9. LAD: Ulcerated high-grade LAD stenosis 95%, circumflex: Medium caliber nondominant vessel supplying 2 small OM branches. RCA large caliber widely patent
with minor irregularities. PDA and posterolateral branch is large. Dilated global hypokinetic LVEF 40%, and 4+ MR.
Echo 02/05/2025: EF 50%, abnormal septal and anteroseptal motion consistent with postop status, status post mitral valve repair with trace MR, peak/mean gradient 6/2 mmHg
Plan:
- Patient admitted with chest pain and elevated troponin on 01/28/2025 and found to have new severe MR by echo and LAD disease by cath both on 01/29/2025. Patient was seen by the CT surgery team and recommended CABG and MV repair which was performed
on 02/01/2025.
- He had intraoperative A-fib, and converted to sinus while in OR on Amio gtt. he had full left atrial maze with radiofrequency and cryoablation as well as BENJAMIN exclusion confirmed by KATARINA at end of case.
- On review of telemetry overnight, had episode of brief NSVT, episode of AIVR, as well as brief episode of 2-1 AV block. He has indication for beta-nabil given NSTEMI status post CABG, and postop A-fib. Will attempt to place on Toprol 12.5 mg
daily and follow rhythm overnight. If remains stable, will plan to discharge with rhythm star monitor. If with evidence of high-grade AV block, would plan for pacemaker placement. Holding amiodarone
- Continue aspirin. hgb 10.2, plts 108K. HIT antibody was negative. Hematology following
- agree with continued IV diuresis.
- LDL 90 earlier in admission. Continue Crestor
- Echo with results as above, EF preserved, and mitral valve repair with peak/mean gradient 6/2 mmHg
- Ambulate, IS
- Discussed with nursing, CT surgical team, EP
- Discussed with patient and at bedside
HPI: Patient came to [facility] ER yesterday with chest pain and was admitted with possible ACS and cardiology has been consulted. Patient reports intermittent SALCEDO over the last several months, but sometimes he can complete physical activity without any
symptoms and other times will have some SALCEDO chest pressure. He mows his lawn using a push mower weekly without any symptoms. 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
event and while walking he had pressure throughout his precordium and then when he reached his destination he was overwhelmingly fatigued and flopped down in his chair. A bystander thought he looked unwell and offered him Gatorade. Patient says
that the pain improved within 10 minutes of sitting down, but did not completely resolve and was still present close to an hour later when he and his were leaving the event. Patient went to urgent care and then was referred to the ER where his
initial troponin was 0.037 and then peaked at 0.065. Patient denies any previous cardiac testing. He was started on Crestor for hyperlipidemia about 6 months ago. His father had an [facility] and at age 54.
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
Subjective
Date of Service: February 06, 2025
Feeling well. No lightheadedness, dizziness. Reports good urine output with Lasix
Objective
Labs:
02/06/25 03:49
02/06/25 03:49
Labs
Hgb 8.9 g/dL (13.0-18.0) L 02/06/25 03:49
Hct 26.7 % (39.0-52.0) L 02/06/25 03:49
Plt Count 124 10^3/uL (130-400) L 02/06/25 03:49
PT 18.4 Sec (11.4-14.6) H 02/01/25 12:19
INR 1.50 02/01/25 12:19
APTT 29.8 Sec (23.4-35.0) 02/01/25 12:19
Sodium 135 mmol/L (135-145) 02/06/25 03:49
Potassium 3.3 mmol/L (3.5-5.1) L 02/06/25 03:49
BUN 22 mg/dl (9-20) H 02/06/25 03:49
Creatinine 0.6 mg/dL (0.7-1.3) L 02/06/25 03:49
Glucose 91 mg/dl (70-99) 02/06/25 03:49
Vital Signs and I&O:
Vital Signs
Temp Pulse Resp BP Pulse Ox
98.7 F 76 19 113/67 96
02/06/25 08:00 02/06/25 08:00 02/06/25 08:00 02/06/25 07:37 02/06/25 10:00
Vital Signs
Temp Pulse Resp BP Pulse Ox
98.7 F 76 19 113/67 96
02/06/25 08:00 02/06/25 08:00 02/06/25 08:00 02/06/25 07:37 02/06/25 10:00
Intake & Output
02/04/25 02/05/25 02/06/25 02/07/25
07:59 07:59 07:59 07:59
Intake Total 230 / 240 170 / 170 480 / 480
Output Total 1110 / 1110 2600 / 2850 1900 / 1900
Balance -880 / -870 -2430 / -2680 -1900 / -1660 480 / 480
Physical Exam
Physical Exam
GEN: No distress, awake, alert, oriented x3.
HEENT: supple, anicteric, mmm, EOMI
LUNGS: CTA bilaterally, no wheezes/rales
CV: Reg, S1/S2, no murmur
ABD: soft, BS+, NT/ND
EXT: No cyanosis, clubbing. 1+ edema of B/L LE
NEURO: Gross non-focal
SKIN: Warm, pink, dry. No rash. Sternotomy incision clean dry and intact
[2025-02-06] MEDS: TOPROL XL 12.5 MG PO (12:19)
[2025-02-06] MEDS: DULCOLAX 5 MG PO (12:19)
--- NOTE | 2025-02-06 14:07 | CM ---
Chart reviewed. Patient OOB ambulating the johnson, at bedside. Patient is independent of ADLS, lives with his in a 2 STH, 1 JOSELITO, 0 DME. Plan is for the patient to return home with CT Transitional RN. CM to follow
--- NOTE | 2025-02-06 14:08 | PTCARENOTE ---
Education of plan of care provided to patient and spouse at length. Questions answered. Beta nabil administered per MD order. VSS. Dulcolax given PO. Ambulating in room /wo issue. Assessment otherwise unchanged from prior.
[2025-02-06] MEDS: TYLENOL PO (15:43)
--- NOTE | 2025-02-06 16:09 | PTCARENOTE ---
Sitting up in chair, denies complaint. VSS. Voiding large amounts of clear urine. Seems more up beat this afternoon. Assessment otherwise unchanged from prior.
[2025-02-06] MEDS: MIRALAX 17 GRAMS PO (18:38)
--- NOTE | 2025-02-06 19:50 | PTCARENOTE ---
Patient recieved from RN @ 1900. Patient sitting in chair comfortably w/ call reagan in reach. AOx3. NSR w/ first degree block. BP 124/73 HR 90. Heart sounds audible. Radial pulses present to palpation bilaterally. Pedal pulses weak on
palpation. +2 edema noted bilateral lower extremity. POX 96% RA. Lungs diminished in bases bilaterally. Voiding clear yellow urine. Bowel sounds normoactive. No BM noted. Sternal incision well approximated WIL. CT punctures clean dry open
and not approximated. Left hand PIV patent and intact.
--- NOTE | 2025-02-06 19:50 | PTCARENOTE ---
Patient received from RN @ 1900. Patient sitting in chair comfortably w/ call reagan in reach. AOx3. NSR w/ first degree block. BP 124/73 HR 90. Heart sounds audible. Radial pulses present to palpation bilaterally. Pedal pulses weak on
palpation. +2 edema noted bilateral lower extremity. POX 96% RA. Lungs clear bilaterally. Voiding clear yellow urine. Bowel sounds normoactive. No BM noted. Sternal incision well approximated TRIM CREW SUPERVISOR. CT dressing C/D/I. Left hand PIV patent and
intact.
[2025-02-07] MEDS: ROXICODONE 2.5 MG PO ×2 (00:13→10:34)
[2025-02-07 00:18] VITALS: BP 123/77
--- NOTE | 2025-02-07 00:22 | PTCARENOTE ---
Patient reassessed. NSR w/ first degree heart block. BP 123/77 HR 77 POX 97% RA
[2025-02-07 04:39] VITALS: BP 107/68
[2025-02-07 04:51] LABS: Hematocrit 27.3 % (39.0-52.0); Hemoglobin 9.2 g/dL (13.0-18.0); Mean Corp Hgb Conc. 33.7 g/dL (33.0-37.0); Mean Corpuscular Volume 88.1 fL (80.0-94.0); Platelet Count 146 10^3/uL (130-400); Red Cell Dist. Width 13.9 % (11.5-14.5)
--- NOTE | 2025-02-07 05:22 | W.PN.CT ---
Addendum entered and electronically signed by Jules López MD 02/07/25 09:01:
I saw and examined the patient.
The PA's note was reviewed and I agree with the note.
Comment:
GOLD, Guille [id number]
POD#6 s/p CABG x 1, MVRp, MAZE, PFO closure, ELAA
No major overnight events. Tolerated BB. RhythmStar monitor in place
D/C planning for home today
Original Note:
Today's Communication / Plan
-
Plan:
-No major issues overnight. Hemodynamically and neurologically intact
-Pt with postop 2:1 AVB, NSVT. Low dose BB added per Cards/EP yesterday
-Tolerating Toprol XL 12.5 Qdaily
-No rhythm issues overnight, currently NSR @ 70 bpm
-Had repeat echo on 02/05/25 which showed an intact MV repair, PG/MG 6/2 mmHg, with trace MR, LVEF 50%
-Home today with RhythmStar heart monitor
Assessment / Plan
-
NSTEMI and severe mitral valve insufficiency with heart failure s/p CABG x1 (MICHAEL to LAD), Radical mitral valve repair [triangular resection of P2 and P3 at the cleft, primary reapproximation of P2/3, 4 sets of [place]-Eb cords placed to the posterior
leaflet, anterolateral commissuroplasty, 40 mm band annuloplasty], Full left atrial maze [RF and cryoablation] and left atrial appendage exclusion [45 mm clip], PFO closure on 02/01/[address] Posadas POD #6
KATARINA 02/01/25: LVEF 45-50%, dilated LV, no RWMA, severe mitral regurgitation from annulus dilation and torn chordae, small L->R PFO
Proximal LAD disease 95% stenosis
Severe MR
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
Thrombocytopenia
Myxomatous mitral valve disease
Hx daily EtOH use
hx HTN
Hx HLD
Hx tobacco abuse
Acute intraop Afib - no recurrence postop. Continue ASA only per Dr. Posadas
Acute postop bradycardia, Amiodarone gtt d/c'd. Toprol and po Amio are held
Acute postop blood loss anemia
Acute postop thrombocytopenia on chronic thrombocytopenia (transfuse 2 {5pks} plts)
Acute coagulopathy
Acute postop hypovolemia with subsequent hypervolemia
Acute Cardiogenic shock on Dobutamine
Acute postop hyponatremia
Echo 02/05/25:
Left ventricle is dilated. Low normal left ventricular systolic function. Abnormal (paradoxical) septal and anteroseptal motion consistent with postoperative status. LV ejection fraction is 50% by visual assessment.
S/p mitral valve repair. Trace mitral regurgitation is seen. Peak/mean gradients across the mitral valve are 6/2 mmHg.
Since echo 01/29/2025 which was reviewed, patient is status post mitral valve repair with resolution of severe MR. There is anteroseptal and septal abnormal motion consistent with postoperative status.
Discussed patient care with: Cardiology, Nursing, Respiratory Therapy, Pharmacy and Care Team
Subjective
-
Date of Service: February 07, 2025
Pt c/o constipation, otherwise feels well. States able to have small BM last night. Ambulating without difficulty
Objective Data
-
Lab Results
02/07/25 04:38
PT 18.4 Sec (11.4-14.6) H 02/01/25 12:19
INR 1.50 02/01/25 12:19
APTT 29.8 Sec (23.4-35.0) 02/01/25 12:19
Vital Signs
Vital Signs
Temp Pulse Resp BP Pulse Ox
97.9 F 72 16 123/77 96
02/07/25 04:39 02/07/25 04:00 02/07/25 04:39 02/07/25 00:02/07/25 04:[address]
CT Intake/Output/Weight
02/06/25 02/06/25 02/07/25
06:59 18:59 06:59
Intake Total 1200 / 1200
Output Total 475 / 1900 1200 / 1500 300 / 1500
Balance -475 / -1900 0 / -300 -300 / -300
SaO2: 96 (RA)
Physical Exam
-
General: Awake, Oriented and AOx3
Cardiovascular: Regular rate & rhythm, No Murmurs, No Rub and No Gallop
Respiratory: Decreased Breath Sounds (at bases, otherwise clear)
Sternum: Stable
Incision: Clean, Dry, Intact and Dressing Intact
Extremities: No Edema
Data Reviewed
-
Lab Results: Results Reviewed
Medications: Active Meds Reviewed
Chest X-Ray: Report Reviewed and Image Reviewed
ECG: Report Reviewed and Image Reviewed
[2025-02-07 05:26] LABS: Blood Urea Nitrogen 26 mg/dl (9-20); Calcium 9.0 mg/dl (8.4-10.2); Carbon Dioxide 29 mmol/L (22-30); Chloride 102 mmol/L (98-107); Estimated Creatinine Clearance 117 ml/min; Glucose 101 mg/dl (70-99); Magnesium 2.2 mg/dl (1.6-2.3); Potassium 4.2 mmol/L (3.5-5.1); Sodium 133 mmol/L (135-145); eGFR > 60.00
[2025-02-07 05:28] VITALS: BMI 25.4
[2025-02-07] MEDS: TYLENOL PO (05:28)
--- NOTE | 2025-02-07 08:00 | PTCARENOTE ---
Assumed care of patient from sand digger RN. AAO x 3 Affect flat, but appropriate. SR w/ first degree AVB on monitor. Room air 93%. IS to 1999. Pt informed RN, he had a large formed BM this am in toilet. Abdomen soft and non tender. Voiding
w/o issue. plus one lower extremity edema. Pulses palpable. Plan for day discussed.
[2025-02-07 08:03] VITALS: BP 100/61
[2025-02-07] MEDS: NEURONTIN 100 MG PO (08:04)
[2025-02-07] MEDS: PROTONIX 40 MG PO (08:04)
[2025-02-07] MEDS: TOPROL XL 12.5 MG PO (08:04)
[2025-02-07] MEDS: CRESTOR 10 MG PO (08:04)
[2025-02-07] MEDS: LOW STRENGTH ASPIRIN 81 MG PO (08:04)
[2025-02-07] MEDS: SENOKOT-S 1 TABLET PO (08:05)
[2025-02-07] MEDS: MAGNESIUM OXIDE 500 MG PO (08:05)
--- NOTE | 2025-02-07 08:43 | W.DCSUMMARY ---
Discharge Summary
Discharge Data
Date of Admission: 01/28/25
Date of Discharge: 02/07/25
-
Pending Results: No
Hospital Course
Primary care physician: Racheal Gomez
Outpatient rubber down: none prior>Mani Blancas on admission
Inpatient consultants: [facility], Hematology, internal medicine
Procedures:
1. CABG x 1[MICHAEL to LAD]; left atrial maze [RF and cryoablation] and left atrial appendage exclusion [45 mm clip]; radical mitral valve repair [triangular resection of P2 and P3 at the cleft, primary reapproximation of P2/3, 4 sets of Hanska-Be
cords placed to the posterior leaflet, anterolateral commissuroplasty, 40 mm band annuloplasty]; primary closure of PFO
Primary Diagnosis:
1. NSTEMI/1 vessel CAD (LAD)
Secondary Diagnoses:
1. 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
2. Hyperlipidemia
3. Rodney intra-operative atrial fibrillation-no recurrence postop. Continue ASA only
4. NSVT, episode of AIVR, as well as brief episode of 2-1 AV block
5. Acute postop thrombocytopenia on chronic thrombocytopenia
6. Acute post-op hyponatremia
7. 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
8. Acute postop blood loss anemia
9. Mild subpleural scarring in the lower lobes of both lungs
HPI: Guille Luo is a 74-year-old male with a PMHx of HLD who presented to [facility] ED on 01/28/25 with complaints of exertional dyspnea with chest tightness and diaphoresis while walking on an incline. EKG showed small, non-ST segment elevation with
low-positive troponin (presented at 0.037 with peak at 0.065).
Hospital course: Patient was admitted for ACS/NSTEMI. TTE reported EF 51% with dilated LA & LV, severe MR, MVP, PASP 46. R/LHC reported high-grade mid LAD stenosis with dilated, global hypokinetic LV an estimated EF of 40% with severe MR; CO/CI
4.1/1.9, PASP 31/13, RA 6, PCWP 15 with v-waves to 29, LVEDP 17. Cardiothoracic surgery was consulted for consideration of CABG and MVR. Last dose of Plavix was 01/29/2025. Hematology was consulted for chronic thrombocytopenia with a recommendation
for argatroban if needed the preoperative period. Patient proceeded to the operating room on 02/01/2025 for radical mitral valve repair, CABG x 1, maze, left atrial clip and primary PFO closure by Dr. Kenny Posadas. For further details please see
operative note. Postprocedure KATARINA reported an EF of 45-50% with no mitral regurgitation. Patient developed intraoperative new onset atrial fibrillation with no further episodes in the postoperative period. Patient received no intraoperative blood
products and returned to CVICU on dobutamine at 3, Levophed at 2, Precedex and insulin. On postoperative day #1, dobutamine and Levophed were weaned off. Amiodarone and beta-nabil were held due to sinus bradycardia. Right and left pleural chest
tubes were removed. Crestor dose was increased to 10 mg daily. On postoperative day #2, the mediastinal chest tubes were removed. Patient developed an episode of nonsustained VT with AIVR and brief episode of 2 :1 block. Beta-nabil and
amiodarone continued to be held. Temporary epicardial atrial and ventricular wires were cut on postoperative day #4. A predischarge TTE reported EF 50%, mitral valve gradients 6/2 mmHg, no MR, and trace TR. Patient was diuresed with IV Lasix for
expected postoperative weight gain. On postoperative day #5, patient was given a heart rhythm monitor and Toprol 12.5 mg was initiated by cardiology. There were no episodes of arrhythmia or bradycardic events overnight and on postoperative day #6,
patient ambulated in halls independently without difficulty. Patient will continue on aspirin only as no further atrial fibrillation episodes occurred postoperatively. Electrolytes are stable with creatinine 0.07, hemoglobin 9.6, and platelets
recovering to 146K. Patient instructed to follow-up with pulmonary as an outpatient to follow the mild subpleural scarring in the bilateral lower lung ring that was noted on CT scan preoperatively. Patient will be followed by transitional care
nurses and have BMP/CBC in 1 week to trend postoperative anemia and hyponatremia.
Home medication changes:
Crestor dose increased to 10mg daily
Discharge Plan
-
Patient Disposition: Home (Routine Discharge)
Discharge Diagnosis/Procedures: Mitral valve repair, CABG x 1,MAZE, left atrial appendage clip (02/01/25)
Condition: Good
Diet: Low Cholesterol and Low Sodium
Activity: No strenuous activity
Driving Restrictions: Not until seen by your Dr
Bathing Restrictions: OK to Shower
Blood Work: CBC/BMP in 1 week
Other Services: Cardiac Rehab
Specialty Instructions: Weigh Daily- Call MD for wt gain/loss 3 lbs overnight/5 lbs in 1 week
Referrals:
CT Transitional Care Nurse [Outside]
Referral Note: The Cardiothoracic Transitional Care Nurse will call you to set up a visit in 1-2 days.
[facility] [Outside]
Referral Note: Cardiac Rehab Orientation appointment and� First Exercise appointment is on 03/18/25 at 9:30am.
The Cardiac Rehab gym is located on the first floor of the [facility].
Elroy Henao MD [Active, Pulmonary Medicine] - in one to two months
Yue Snider PA-C [Specified Professional Personl, Cardiology] - 03/16/25 3:20 pm
Racheal Gomez MD [Family Provider, Family Practice]
Chelita Morales CRNP [Specified Professional Personl, Cardiac Surgery] - 03/04/25 11:30 am
Additional Discharge Medication Instructions: Crestor dose increased to 10mg daily
Prescriptions:
New
aspirin 81 mg Tablet,Chewable
81 mg PO DAILY Qty: 0 0RF
acetaminophen 325 mg Tablet
650 mg PO Q4HPRN PRN (Reason: mild pain,headache,temp >101F ) Qty: 0 0RF
gabapentin 100 mg Capsule
100 mg PO TID Qty: 30 0RF
oxycodone 5 mg Tablet
5 mg PO Q4HPRN PRN (Reason: severe pain) Qty: 10 0RF
rosuvastatin 10 mg Tablet
10 mg PO DAILY Qty: 30 2RF
cyclobenzaprine 10 mg Tablet
5 mg PO Q8HPRN PRN (Reason: muscle spasm) Qty: 10 0RF
metoprolol succinate 25 mg Tablet Extended Release 24 Hr
12.5 mg PO DAILY Qty: 30 2RF
furosemide [Lasix] 20 mg tablet
20 mg PO DAILY Qty: 5 0RF
Continued
sildenafil 100 mg Tablet
100 mg PO DAILY PRN (Reason: ED)
Discontinued
rosuvastatin 5 mg Tablet
5 mg PO DAILY
Discharge Orders:
Discharge Patient (As Directed); Ordered 02/07/25
Ordered By: Farzaneh Harrison
Care Plan Goals
Care Plan Goals:
Problem: Readiness for enhanced knowledge related to diagnosis and treatment plan
Goal: Understand your diagnosis and treatment plan needs, including medications if applicable.
Instructions: Know your diagnosis, underlying causes and treatment plan options, including medications if applicable. Consult with your health care team to learn about your diagnosis and treatment plan, including medications if applicable.
Discharge Date and Time
Print Language: IVORIAN
--- NOTE | 2025-02-07 11:27 | PTCARENOTE ---
Pt showered using CHG soap and shower chair. Tolerated w/o issue. INT and telemetry pack removed. Discharge instructions reviewed with patient and . Pt States understanding Rhythm star monitor on. Wheeled to car by RN.
== END 2025-02-07 11:32 | disposition home or self-care (01) | DRG 216 ==
LOC: CVICU 20:22
PROVIDERS: Anesthesiology; Internal Medicine Cardiovascular Disease; Internal Medicine Interventional Cardiology; Nurse Practitioner; Nurse Practitioner Adult Health; Physician Assistant; Physician Assistant Medical; ADMITTING PHYSICIAN Internal Medicine; ATTENDING PHYSICIAN Thoracic Surgery (Cardiothoracic Vascular Surgery); CONSULT PHYSICIAN Internal Medicine Hematology & Oncology; EMERGENCY PHYSICIAN Emergency Medicine; FAMILY PHYSICIAN Family Medicine; OTHER PHYSICIAN Internal Medicine; OTHER PHYSICIAN Internal Medicine Cardiovascular Disease
PROC: B2151ZZ Fluoroscopy of Left Heart using Low Osmolar Contrast (ICD-10-PCS; 2025-01-29)
PROC: B2111ZZ Fluoroscopy of Multiple Coronary Arteries using Low Osmolar Contrast (ICD-10-PCS; 2025-01-29)
PROC: 4A023N8 Measurement of Cardiac Sampling and Pressure, Bilateral, Percutaneous Approach (ICD-10-PCS; 2025-01-29)
PROC: B24BZZ4 Ultrasonography of Heart with Aorta, Transesophageal (ICD-10-PCS; 2025-01-30)
PROC: 02Q50ZZ Repair Atrial Septum, Open Approach (ICD-10-PCS; 2025-02-01)
PROC: 30233R1 Transfusion of Nonautologous Platelets into Peripheral Vein, Percutaneous Approach (ICD-10-PCS; 2025-02-01)
PROC: 02100Z9 Bypass Coronary Artery, One Artery from Left Internal Mammary, Open Approach (ICD-10-PCS; 2025-02-01)
PROC: 02L70CK Occlusion of Left Atrial Appendage with Extraluminal Device, Open Approach (ICD-10-PCS; 2025-02-01)
PROC: 02580ZZ Destruction of Conduction Mechanism, Open Approach (ICD-10-PCS; 2025-02-01)
PROC: 5A1221Z Performance of Cardiac Output, Continuous (ICD-10-PCS; 2025-02-01)
PROC: 02BG0ZZ Excision of Mitral Valve, Open Approach (ICD-10-PCS; 2025-02-01)
PROC: 02UG0JZ Supplement Mitral Valve with Synthetic Substitute, Open Approach (ICD-10-PCS; 2025-02-01)
DX: I21.4 Non-ST elevation (NSTEMI) myocardial infarction (principal); I50.21 Acute systolic (congestive) heart failure; I51.1 Rupture of chordae tendineae, not elsewhere classified; R57.0 Cardiogenic shock; Q21.12 Patent foramen ovale; I47.20 Ventricular tachycardia, unspecified; I97.791 Other intraoperative cardiac functional disturbances during other surgery; E87.1 Hypo-osmolality and hyponatremia; D62 Acute posthemorrhagic anemia; D68.9 Coagulation defect, unspecified; I34.0 Nonrheumatic mitral (valve) insufficiency; I34.1 Nonrheumatic mitral (valve) prolapse; I48.91 Unspecified atrial fibrillation; I25.10 Atherosclerotic heart disease of native coronary artery without angina pectoris; E78.00 Pure hypercholesterolemia, unspecified; D69.59 Other secondary thrombocytopenia; R91.1 Solitary pulmonary nodule; F17.290 Nicotine dependence, other tobacco product, uncomplicated; I44.1 Atrioventricular block, second degree; R00.1 Bradycardia, unspecified; Y83.2 Surgical operation with anastomosis, bypass or graft as the cause of abnormal reaction of the patient, or of later complication, without mention of misadventure at the time of the procedure; F10.90 Alcohol use, unspecified, uncomplicated; I10 Essential (primary) hypertension; E86.1 Hypovolemia; I27.20 Pulmonary hypertension, unspecified; Z79.899 Other long term (current) drug therapy; Z82.49 Family history of ischemic heart disease and other diseases of the circulatory system
CPT/HCPCS: 33259; 70355; 71045; 71046; 71250; 80048; 80053; 80061; 81003; 81015; 82248; 82330; 82565; 82607; 82746; 82805; 82810; 82947; 82962; 83010; 83036; 83615; 83735; 83880; 84132; 84302; 84443; 84484; 84520; 85014; 85018; 85025; 85027; 85045; 85049; 85610; 85730; 86022; 86023; 86803; 86850; 86900; 86901; 86920; 87015; 87086; 87147; 87186; 87207; 88305; 93005; 93306; 93308; 93312; 93320; 93321; 93325; 93460; 93880; 94002; 99152; 99153; 99285; C1769; C1894; J2597; P9045; P9073; Q9967

== ENCOUNTER 2025-03-20 13:59 | Outpatient (RCR) | payer MEDICARE, SELFPAY | END 2025-03-20 23:59 | disposition home or self-care (01) | LOC: CRHB 13:59 | PROVIDERS: ATTENDING PHYSICIAN Internal Medicine Cardiovascular Disease; FAMILY PHYSICIAN Family Medicine | DX: Z95.1 Presence of aortocoronary bypass graft (principal); Z95.4 Presence of other heart-valve replacement | CPT/HCPCS: G0422; G0423 ==

== ENCOUNTER 2025-04-20 11:57 | Outpatient (RCR) | payer MEDICARE, SELFPAY | END 2025-04-20 23:59 | disposition home or self-care (01) | LOC: CRHB 11:57 | PROVIDERS: ATTENDING PHYSICIAN Internal Medicine Cardiovascular Disease; FAMILY PHYSICIAN Family Medicine | DX: I25.10 Atherosclerotic heart disease of native coronary artery without angina pectoris (principal); Z95.1 Presence of aortocoronary bypass graft; Z95.4 Presence of other heart-valve replacement | CPT/HCPCS: G0422; G0423 ==

== ENCOUNTER → 2025-04-30 11:21 | Outpatient (REF) | payer MEDICARE, SELFPAY | LOC: HWRAD 11:21 | PROVIDERS: ATTENDING PHYSICIAN Internal Medicine Critical Care Medicine; FAMILY PHYSICIAN Family Medicine | DX: R91.1 Solitary pulmonary nodule (principal) | CPT/HCPCS: 71250 ==

== ENCOUNTER 2025-05-22 11:38 | Outpatient (RCR) | payer MEDICARE, SELFPAY | END 2025-05-22 23:59 | disposition home or self-care (01) | LOC: CRHB 11:38 | PROVIDERS: ATTENDING PHYSICIAN Internal Medicine Cardiovascular Disease; FAMILY PHYSICIAN Family Medicine | DX: I25.10 Atherosclerotic heart disease of native coronary artery without angina pectoris (principal); Z95.1 Presence of aortocoronary bypass graft; Z95.4 Presence of other heart-valve replacement | CPT/HCPCS: G0422; G0423 ==

== ENCOUNTER 2025-06-15 11:59 | Outpatient (RCR) | payer MEDICARE, SELFPAY | END 2025-06-15 23:59 | disposition home or self-care (01) | LOC: CRHB 11:59 | PROVIDERS: ATTENDING PHYSICIAN Internal Medicine Cardiovascular Disease; FAMILY PHYSICIAN Family Medicine | DX: I25.10 Atherosclerotic heart disease of native coronary artery without angina pectoris (principal); Z95.1 Presence of aortocoronary bypass graft; Z95.4 Presence of other heart-valve replacement | CPT/HCPCS: G0422; G0423 ==